=== PATIENT | male | born 1950 | race Caucasian/White ===

== ENCOUNTER 2019-01-11 21:18 | Observation (INO) ==
[2019-01-11 21:53] LABS: Basophils # 0.1 K/mm3 (0-0.2); Basophils % 1.5 % (0.1-2.0); Eosinophils # 0.4 K/mm3 (0.0-0.4); Eosinophils % 4.7 % (0.1-12.0); Hematocrit 39.6 % (42.0-52.0); Hemoglobin 11.6 g/dL (14.1-18.0); Lymphocytes # 2.5 K/mm3 (0.7-4.5); Lymphocytes % 32.6 % (10-50); Mean Corpuscular HGB Conc 29.4 g/dL (31.8-35.4); Mean Corpuscular Volume 75.4 fl (80-94); Mean Platelet Volume 6.8 fl (7.4-10.4); Monocytes # 0.4 K/mm3 (0.1-1.0); Monocytes % 4.8 % (1.7-9.3); Neutrophils # 4.3 K/mm3 (1.8-7.8); Neutrophils % 56.4 % (37.0-80.0); Platelet Count 408 K/mm3 (142-424); Red Blood Count 5.26 M/mm3 (4.60-6.20); Red Cell Distribution Width 16.2 % (11.5-17.5); White Blood Count 7.7 K/mm3 (4.8-10.8)
[2019-01-11 22:55] LABS: Alanine Aminotransferase 29 U/L (12-78); Albumin Level 3.4 gm/dL (3.4-5.0); Albumin/Globulin Ratio 0.8 (1.1-1.8); Alkaline Phosphatase 145 U/L (46-116); Anion Gap 23.9 mEq/L (5-15); Aspartate Amino Transferase 25 U/L (15-37); Bilirubin,Total 0.3 mg/dL (0.2-1.0); Blood Urea Nitrogen 12 mg/dL (7-18); Calcium 8.7 mg/dL (8.5-10.1); Carbon Dioxide 17 mmol/L (21.0-32.0); Chloride 103 mmol/L (98-107); Globulin 4.4 gm/dl (1.3-3.2); Glucose 129 mg/dL (74-106); Sodium 140 mmol/L (136-145); Total Protein,Serum 7.8 gm/dL (6.4-8.2)
--- NOTE | 2019-01-11 23:17 | Emergency Department Note ---
ED Disposition Clinical Impression: Metabolic acidosis, Obesity (BMI 30.0-34.9) Fall Qualifiers: Encounter type: initial encounter Qualified Code(s): W19.XXXA - Unspecified fall, initial encounter Hypothyroidism Qualifiers: Hypothyroidism type: acquired Qualified Code(s): E03.9 - Hypothyroidism, unspecified Facial laceration Qualifiers: Encounter type: initial encounter Qualified Code(s): S01.81XA - Laceration without foreign body of other part of head, initial encounter Syncope Qualifiers: Syncope type: unspecified Qualified Code(s): R55 - Syncope and collapse Anemia Qualifiers: Anemia type: unspecified type Qualified Code(s): D64.9 - Anemia, unspecified Disposition: Admitted as Observation Condition on Discharge: Fair - Critical Care Critical Care Time: No Attestation: On 01/11/19, the high probability of a clinically significant, sudden or life threatening deterioration of the following system(s) required my full and direct attention, intervention and personal management. The time I documented below is in addition to time spent performing reported procedures but includes the following listed in this critical care notation. Medical Decision Making - Medical Records Medical records reviewed: Yes: I reviewed the patient's medical records. - Arik Inquiry Pt receiving controlled substance: No Vital Signs: 01/11/19 21:19 Temperature 98 F Temperature Source Oral Pulse Rate [Right] 114 H Respiratory Rate 22 Blood Pressure [Right Arm] 129/90 Blood Pressure Mean [Right Arm] 103 02 Sat by Pulse Oximetry 95 - Lab Data Lab results reviewed: Yes: I reviewed the patient's lab results. Lab Results 01/11/19 21:30: Sodium 140, Potassium 3.9, Chloride 103, Carbon Dioxide 17 L, Anion Gap 23.9 H, BUN 12, Creatinine 1.80 H, Estimated Creat Clear 51, Estimated GFR 38 L, Est GFR ( Amer) 46 L, Glucose 129 H, Calcium 8.7, Total Bilirubin 0.3, AST 25, ALT 29, Alkaline Phosphatase 145 H, Troponin I < 0.02, Total Protein 7.8, Albumin 3.4, Globulin 4.4 H, Albumin/Globulin Ratio 0.8 L 01/11/19 21:30: WBC 7.7, RBC 5.26, Hgb 11.6 L, Hct 39.6 L, MCV 75.4 L, MCH 22.1 L, MCHC 29.4 L, RDW 16.2, Plt Count 408, MPV 6.8 L, Neut % (Auto) 56.4, Lymph % (Auto) 32.6, [place] % (Auto) 4.8, Eos % (Auto) 4.7, Baso % (Auto) 1.5, Neut # (Auto) 4.3, Lymph # (Auto) 2.5, [place] # (Auto) 0.4, Eos # (Auto) 0.4, Baso # (Auto) 0.1 01/11/19 21:30: Lactate 10.0 H Result diagrams: 01/11/19 21:30 01/11/19 21:30 Orders (Tests/Meds): ED MEDICATIONS Generic Name Dose Route Start Last Admin Trade Name Freq PRN Reason Stop Dose Admin Sodium Chloride 1,000 mls @ 999 mls/hr 01/11/19 23:00 01/11/19 22:54 Sod Chlor 0.9% 1000ml Bag IV 01/12/19 00:00 999 mls/hr .Q1H1M NATASHA Administration Sodium Chloride 2,650 mls @ 1,325 mls/hr 01/11/19 23:26 01/11/19 23:29 Sod Chlor 0.9% 1000ml Bag 30 ml/kg infuse over 2 hr (2650 ml) 01/12/19 01:25 1,325 mls/hr IV Administration .Q2H ONE Discontinued Medications Generic Name Dose Route Start Last Admin Trade Name Freq PRN Reason Stop Dose Admin Tetanus/Reduced Diphtheria/Acell Pertussis 0.5 ml 01/11/19 23:31 01/11/19 23:34 Adacel Tdap 0.5ml Syringe IM 01/11/19 23:32 0.5 ml .ONCE ONE Administration ORDERS Category Date Time Status CT cervical spine wo con Stat Cat Scan 01/11/19 21:[address] head/brain wo con Stat Cat Scan 01/11/19 21:26 Taken XR chest 2V Stat Exams 01/11/19 21:26 Taken XR pelvis 1-2V Stat Exams 01/11/19 21:26 Taken XR wrist LT min 3V Stat Exams 01/11/19 21:26 Taken XR wrist RT min 3V Routine Exams 01/11/19 Taken Blood Culture Stat Micro 01/11/19 21:30 Received - Radiology Data #1 Image(s): Chest, Wrist, Pelvis Image Reviewed: Yes I reviewed the patient's radiology image Preliminary Findings: No Fracture Seen - CT Data CT Scan: Head, C-Spine Time Received: 23:[address] Reviewed: Yes: I have viewed the radiologist's interpretation Preliminary Findings: No Fracture Seen - ECG Data Tracing #1 Arrhythmias present: sinus tach Ischemic changes: non-specific ST-T wave changes - AMINATA Score for Non-Stemi Age of Patient: 60-69 years old Heart Rate: 110-149 bpm Systolic Blood Pressure: 120-139 mmhg Serum Creatinine: 1.60-1.99 mg/dl CHF [place] Class: I-No CHF Other Risk Factors: None Non-Stemi Risk Score: 129 Fall HPI - General Chief Complaint: Fall Stated Complaint: Fall, dizzy Time Seen by Provider: 01/11/19 21:30 Mode of Arrival: EMS Source of Information: Patient, EMS, Medical Record Limitations: No Limitations Description of Symptoms (Recalled from ER Triage Doc. by RN): Pt states he went to walk up some steps and became dizzy and soa and fell. Pt has laceration to the left side of his head and c/o left wrist pain. - History of Present Illness HPI Narrative: pt had been walking and was climbing steps and had feeling of sob and fell with forehead lac and wrist injury- no sz no def chest pain - MD complaint: fall Onset (ago): hour(s) Fall from: walking Place [facility] occurred[facility] Loss of consciousness: none Prolonged down time: no Symptoms prior to fall: lightheadedness Location of injury: head Location of injury - extremities: Right: hand Severity: moderate Associated symptoms (after fall): denies - Related Data Home Medications Medication Instructions Recorded Confirmed Levothyroxine Sodium 50 mg PO DAILY 01/11/19 01/11/19 [Levothyroxine 50mcg (0.05mg) Tab] OLANZapine [Zyprexa] 20 mg PO DAILY 01/11/19 01/11/19 [place]-3S/Dha/Epa/Fish Oil [Fish 1 each PO DAILY 01/11/19 01/11/[address] 1,000 mg Softgel] Pantoprazole Sodium [Pantoprazole 40 mg PO DAILY 01/11/19 01/11/19 20mg Tab] Simvastatin 20 mg PO DAILY 01/11/19 01/11/19 buPROPion HCl [Wellbutrin Xl] 150 mg PO DAILY 01/11/19 01/11/19 Allergies Allergy/AdvReac Type Severity Reaction Status Date / Time haloperidol [HALOPERIDOL] Allergy Mild Verified 01/11/19 23:34 Penicillins [PENICILLINS] Allergy Mild Verified 01/11/19 23:34 [facility] History - Hepatitis A Screen Drug use history?: No High risk sexual behaviors?: No History of sexually transmitted infection?: No Currently employed?: No Childcare worker?: No Do you have indoor plumbing?: Yes Do you have electricity?: Yes Attestation statement:: This patient has been screened for Hepatitis A risk factors. I have reviewed the patient's past medical history: Yes Medical History: Denies:: Diabetes Mellitus Type 1, Diabetes Mellitus Type 2 - Social History Alcohol Intake: never Occupational Status: disabled ROS Obtained: Yes All systems reviewed & no additional complaints - Constitutional Constitutional: Denies fever(s) - Eyes Eyes: Denies change in vision - ENT Ears, Nose, Mouth, and Throat: Denies sore throat - Cardiovascular Cardiovascular: Denies chest pain, Reports dyspnea - Respiratory Respiratory: No cough - Gastrointestinal Gastrointestingal: Denies: abdominal pain - Genitourinary Male Genitourinary: Denies hematuria - Musculoskeletal Musculoskeletal: Reports as per HPI, Reports joint pain, Denies joint swelling, Reports limited range of motion, Reports neck pain - Integumentary/Breasts Skin/Breast: Denies rash - Neurologic Neurologic: Reports as per HPI, Denies abnormal speech, Reports dizziness, Erasmo es focal weakness, Denies seizure-like activity Physical Exam - General General appearance: alert, obese - Head Head exam: normocephalic - Eye Eye exam: Present: PERRL, EOMI. Absent: scleral icterus, nystagmus - ENT ENT exam: Present: mucous membranes dry - Neck Neck exam: Present: trachea midline - Respiratory Respiratory exam: Present: normal lung sounds bilaterally. Absent: respiratory distress - Cardiovascular Cardiovascular exam: Present: regular rate, systolic murmur, +S4 - Abdominal Exam Abdominal exam: Present: soft. Absent: tenderness - Expanded Upper Extremity Exam Left Forearm/Wrist exam: Present: tenderness. Absent: full ROM, tenderness over anatomical snuff box Right Forearm/Wrist exam: Present: tenderness. Absent: tenderness over anatomical snuff box - Back Exam Back exam: Absent: CVA tenderness (L) - Neurological Exam Neurological exam: Present: alert, oriented X3, CN II-XII intact, other (gcs=15). Absent: motor sensory deficit - Psychiatric Psychiatric exam: Present: normal affect - Skin Skin exam: Present: other (2 cm lt forehead lac ) Procedures - Laceration Laceration 1 Site: face Side (If applicable): left Size (cm): 2 Description: irregular Depth: involves subcutaneous layer Local Anesthetic: lidocaine 1% Amount of anesthesia used (mL): 3 Pre-repair: deep structures intact Skin layer closed with: nylon, Dermabond Size (cm): 4-0 Number of sutures: 5 Technique: simple, interrupted
[2019-01-11 23:55] LABS: Microscopic, Urine URINE MICROSCOPIC (MICROSCOPIC)
[2019-01-11 23:57] LABS: Appearance,Urine CLEAR (Clear); Bilirubin,Urine Negative (Negative); Blood, Urine TRACE-I (Negative); Color,Urine YELLOW (Yellow); Glucose,Urine (UA) Negative (Negative); Ketones,Urine Negative (Negative); Leukocyte Esterase,Urine Negative (Negative); Protein,Urine Negative (Negative); Urobilinogen,Urine 0.2 EU/dl (0.2)
[2019-01-12 00:02] LABS: WBC,Urine Occasional #/hpf (0-3)
[2019-01-12 00:03] LABS: Bacteria,Urine Trace /lpf; Squamous Epithelial Cell,Urine Occasional #/hpf (0-5)
[2019-01-12 07:23] LABS: Basophils # 0.1 K/mm3 (0-0.2); Basophils % 0.7 % (0.1-2.0); Eosinophils # 0.2 K/mm3 (0.0-0.4); Eosinophils % 2.5 % (0.1-12.0); Hematocrit 34.4 % (42.0-52.0); Lymphocytes # 1.5 K/mm3 (0.7-4.5); Lymphocytes % 18.5 % (10-50); Mean Corpuscular HGB Conc 30.1 g/dL (31.8-35.4); Mean Corpuscular Volume 73.2 fl (80-94); Mean Platelet Volume 6.8 fl (7.4-10.4); Monocytes # 0.7 K/mm3 (0.1-1.0); Monocytes % 8.2 % (1.7-9.3); Neutrophils # 5.7 K/mm3 (1.8-7.8); Neutrophils % 70.1 % (37.0-80.0); Platelet Count 290 K/mm3 (142-424); Red Cell Distribution Width 16.1 % (11.5-17.5); White Blood Count 8.2 K/mm3 (4.8-10.8)
--- NOTE | 2019-01-12 07:29 | Pharmacy Consult Notes ---
[facility] Pharmacy VTE Monitoring - Patient Demographics Admission date: 01/11/19 Report Date: 01/12/19 Time: 07:28 Allergies/Adverse Reactions: Patient Allergies haloperidol [HALOPERIDOL] Allergy (Mild, Verified 01/11/19 23:34) Penicillins [PENICILLINS] Allergy (Mild, Verified 01/11/19 23:34) Height: 1.68 m Weight: 89.84 kg Patient Problems: Current Active Problems Metabolic acidosis (Acute) Fall (Acute) Hypothyroidism (Acute) Facial laceration (Acute) Obesity (BMI 30.0-34.9) (Acute) Syncope (Acute) Anemia (Acute) - VTE Risk Labs: VTE Related Lab Results Hgb 11.6 g/dL (14.1-18.0) L 01/11/19 21:30 Hct 39.6 % (42.0-52.0) L 01/11/19 21:30 Plt Count 408 K/mm3 (142-424) 01/11/19 21:30 BUN 12 mg/dL (7-18) 01/11/19 21:30 Creatinine 1.80 mg/dL (0.70-1.30) H 01/11/19 21:30 Estimated Creat Clear 51 mL/min (50-200) 01/11/19 21:30 Was VTE Risk Assessment Performed: Yes VTE Score: 6 VTE Risk Level: Moderate Risk - Prophylaxis VTE Prophylaxis Ordered?: Yes Types of VTE Prophylaxis: TEDS Knee High Location of Applied Device: Bilateral Lower Extremeties - VTE Diagnosis Confirmed Treatment or plan recommended: Continue Current Treatment
[2019-01-12 07:47] LABS: Hemoglobin 10.5 g/dL (14.1-18.0)
[2019-01-12 07:50] LABS: Anion Gap 13.4 mEq/L (5-15); Calcium 8.2 mg/dL (8.5-10.1); Chol/HDL Ratio 6.2 (1-3.5)
--- NOTE | 2019-01-12 07:57 | Consult Report ---
History of Present Illness Consult date: 01/12/19 Requesting physician: Shayne Lora Chief complaint: syncope Additional Medical History:: 1. History of bipolar disorder 2. History of schizophrenia 3. GERD/esophagitis, 2017, with Julia infection by EGD 4. Hypothyroidism 5. Hyperlipidemia 6. Syncope with metabolic acidosis, 12/[address] of the head unremarkable B. X-ray of the left wrist showing distal radial fracture and triquetral avulsion. 7. Hypertension 8. CKD, stage 3 with Cr 1.8 down to 1.3 and GFR incresed from 38 to 54 during hospitalization 12/2018 History of present illness: 68-year-old white male admitted through the emergency department for episode of syncope. Patient is a resident of [facility] and had walked downhill to get some ice cream last evening. On his return trip back about 830, he noticed he was short of breath coming up hill and felt heavy. When he got to [facility] steps he got lightheaded dizzy and passed out hitting his head and injuring his wrists. Patient was brought to the ER for evaluation. He did receive stitches to laceration of the left eye. X-rays of head and neck and both wrists were obtained with evidence of distal radial fracture and triquetral avulsion noted. Patient was kept overnight for observation. Cardiac enzymes within normal limits. No arrhythmias noted on telemetry with EKGs last night and this a.m. showing sinus rhythm with nonspecific ST-T abnormalities. Patient did have a metabolic acidosis noted which has improved with IV fluids. Chest x-ray was unremarkable. Patient denies any previous cardiac history although he has been hospitalized both at [facility] in [facility] and within the last 5 years. Records are pending at this time. He does not recall being evaluated with stress test or cardiac catheterization. Patient is a non-smoker and nondrinker (discontinued all alcohol use 5 years ago). He is a prediabetic but is unsure if he is on medication. [facility] History Medical History: Reports:: Hyperlipidemia, Hypertension Denies:: Cancer, Diabetes Mellitus Type 1, Diabetes Mellitus Type 2, MRSA *Have you ever received a pneumonia vaccine?: Yes *Have you received a flu vaccine this season?: No Other Surgeries: Yes: Appendectomy, Colonoscopy, Other Amputation: No Fractures: No - *Social History Educational Level: Attended College Alcohol Intake: never *Occupational Status:: disabled *Travel in the last 8 weeks: None - Psychiatric History Expresses thoughts of harming self/others: None Suicide Plan Description: No Plan Family Hx:: Cancer, Hyperlipidemia Meds Home Medications Medication Instructions Recorded Confirmed Type Levothyroxine Sodium 50 mg PO DAILY 01/11/19 01/11/19 History [Levothyroxine 50mcg (0.05mg) Tab] OLANZapine [Zyprexa] 20 mg PO DAILY 01/11/19 01/11/19 History [place]-3S/Dha/Epa/Fish Oil [Fish 1 each PO DAILY 01/11/19 01/11/[address] 1,000 mg Softgel] Pantoprazole Sodium [Pantoprazole 40 mg PO DAILY 01/11/19 01/11/19 History 20mg Tab] Simvastatin 20 mg PO DAILY 01/11/19 01/11/19 History buPROPion HCl [Wellbutrin Xl] 150 mg PO DAILY 01/11/19 01/11/19 History Allergies Allergy/AdvReac Type Severity Reaction Status Date / Time haloperidol [HALOPERIDOL] Allergy Mild Verified 01/11/19 23:34 Penicillins [PENICILLINS] Allergy Mild Verified 01/11/19 23:34 Review of Systems - *Cardiovascular Reports shortness of breath with activity, Denies chest pain - *Respiratory Reports shortness of breath with activity, Denies cough - *Gastrointestinal Denies abdominal pain, Denies nausea, Denies vomiting - *Genitourinary Denies blood in urine - *Musculoskeletal Reports joint pain, Reports back pain - *Neurologic Reports dizziness, Denies abnormal speech, Denies localized weakness, Denies seizure-like activity Exam Vital signs and Labs for Last 24 Hours: Temp Pulse Resp BP Pulse Ox 98.2 F 70 18 160/87 H 97 01/12/19 04:00 01/12/19 04:00 01/12/19 04:00 01/12/19 04:00 01/12/19 04:00 Laboratory Results - last 24 hr 01/11/19 21:30: Sodium 140, Potassium 3.9, Chloride 103, Carbon Dioxide 17 L, Anion Gap 23.9 H, BUN 12, Creatinine 1.80 H, Estimated Creat Clear 51, Estimated GFR 38 L, Est GFR ( Amer) 46 L, Glucose 129 H, Calcium 8.7, Total Bilirubin 0.3, AST 25, ALT 29, Alkaline Phosphatase 145 H, Troponin I < 0.02, Total Protein 7.8, Albumin 3.4, Globulin 4.4 H, Albumin/Globulin Ratio 0.8 L 01/11/19 21:30: WBC 7.7, RBC 5.26, Hgb 11.6 L, Hct 39.6 L, MCV 75.4 L, MCH 22.1 L, MCHC 29.4 L, RDW 16.2, Plt Count 408, MPV 6.8 L, Neut % (Auto) 56.4, Lymph % (Auto) 32.6, [place] % (Auto) 4.8, Eos % (Auto) 4.7, Baso % (Auto) 1.5, Neut # (Auto) 4.3, Lymph # (Auto) 2.5, [place] # (Auto) 0.4, Eos # (Auto) 0.4, Baso # (Auto) 0.1 01/11/19 21:30: Lactate 10.0 H 01/11/19 23:35: Urine Color Yellow, Urine Appearance Clear, Urine pH 6.0, Ur Specific Exchange 1.010, Urine Protein Negative, Urine Glucose (UA) Negative, Urine Ketones Negative, Urine Blood Trace-i, Urine Nitrate Negative, Urine Bilirubin Negative, Urine Urobilinogen 0.2, Ur Leukocyte Esterase Negative, Urine RBC 3-5, Urine WBC Occasional, Ur Squamous Epith Cells Occasional, Urine Bacteria Trace 01/12/19 00:00: ESR 40 H 01/12/19 00:00: C-Reactive Protein 0.4 01/12/19 01:50: Lactate 0.8 01/12/19 03:30: Troponin I 0.04 01/12/19 06:45: WBC 8.2, RBC 4.70, Hgb 10.5 L, Hct 34.4 L, MCV 73.2 L, MCH 22.0 L, MCHC 30.1 L, RDW 16.1, Plt Count 290 D, MPV 6.8 L, Neut % (Auto) 70.1, Lymph % (Auto) 18.5, [place] % (Auto) 8.2, Eos % (Auto) 2.5, Baso % (Auto) 0.7, Neut # (Auto) 5.7, Lymph # (Auto) 1.5, [place] # (Auto) 0.7, Eos # (Auto) 0.2, Baso # (Auto) 0.1 I & O for Last 24 hours: Intake & Output 01/09/19 01/10/19 01/11/19 01/12/19 11:59 11:59 11:59 11:59 Intake Total 953 / 953 Output Total 2125 / 2125 Balance -1172 / -1172 Weight 198 lb 1 oz - *Routine HEENT Exam Head: Present: normocephalic Eye: Present: EOMI, PERRL ENT: Present: mucous membranes moist - *Routine Neck Exam Present: supple. Absent: JVD, carotid bruit - *Routine Respiratory Exam Present: CTA bilaterally. Absent: accessory muscle use, rales, rhonchi, wheezes - *Routine Cardiovascular Exam Present: RRR. Absent: murmur, gallop, rubs - *Routine Abdominal Exam Present: soft. Absent: tenderness, distended, guarding - *Routine Extremities Exam Absent: edema, calf tenderness - *Routine Neurological Exam Present: alert, oriented X3, moving all extremities Assessment and Plan (1) Syncope Current visit: Yes Status: Acute Qualifiers: Syncope type: unspecified Qualified Code(s): R55 - Syncope and collapse Category: Medical Code(s): R55 - Syncope and collapse (2) Metabolic acidosis Current visit: Yes Status: Acute Category: Medical Code(s): E87.2 - Acidosis (3) Hypertension Current visit: Yes Status: Acute Category: Medical Code(s): I10 - Essential (primary) hypertension (4) Anemia Current visit: Yes Status: Acute Qualifiers: Anemia type: unspecified type Qualified Code(s): D64.9 - Anemia, unspecified Category: Medical Code(s): D64.9 - Anemia, unspecified (5) Facial laceration Current visit: Yes Status: Acute Qualifiers: Encounter type: initial encounter Qualified Code(s): S01.81XA - Laceration without foreign body of other part of head, initial encounter Category: Medical Code(s): S01.81XA - Laceration without foreign body of other part of head, initial encounter (6) Hypothyroidism Current visit: Yes Status: Acute Qualifiers: Hypothyroidism type: acquired Qualified Code(s): E03.9 - Hypothyroidism, unspecified Category: Medical Code(s): E03.9 - Hypothyroidism, unspecified (7) Obesity (BMI 30.0-34.9) Current visit: Yes Status: Acute Category: Medical Code(s): E66.9 - Obesity, unspecified - Assessment and plan all Dx Assessment and Plan for all problems:: 1. Syncope with metabolic acidosis noted on lab values. No acute EKG changes and with echocardiogram (preliminary reading) showing normal left ventricular ejection fraction and no significant valvular heart disease. Heather score is 129 through the ER which places the patient in an intermediate risk. Would recommend proceeding with [employer] Myov[facility] today to evaluate for coronary artery disease. Continue to monitor on telemetry. 2. We will try to obtain records from [facility] and 3. Further recognition to follow pending above results.
--- NOTE | 2019-01-12 08:45 | Electrocardiograph Report ---
APPROVED REPORT Exam: Resting ECG HR:105 bpm ECG Measurements Heart Rate 105 AXES RI 154 P 24 QRSd 92 QRS 38 QT 340 T62 QTc 449 <Conclusion> Sinus tachycardia Nonspecific ST and T wave abnormality Abnormal ECG Electronically signed by : Jayme Fregoso, 01/12/2019 08:44:47
--- NOTE | 2019-01-12 09:57 | Cardiology Report ---
APPROVED REPORT EXAM: Comprehensive 2D, Doppler, and color-flow Echocardiogram Faculty Neuropsychologist: Jody Alvarenga RT(R) Ht: 5 ft 6 in Wt: 196lbs BSA: 1.98 BP: 130/80 mmHg Indications: Chest Pain, Shortness of Breath, Diabetes, Syncope, Hyperlipidemia Left Ventricle Left atrium is mildly enlarged, left ventricle is normal size, there is mild qualitative concentric left ventricular hypertrophy, visually estimated ejection fraction 55% with no regional wall motion abnormality. Diastolic parameters are within normal range. Right Ventricle Right atrium and right ventricle are mildly enlarged with normal contractility. Aortic Valve Aortic valve is minimally thickened and fibrosed, there is no aortic stenosis aortic insufficiency. Mitral Valve Mitral valve leaflets are minimally thickened, there is no mitral stenosis, there is mild mitral regurgitation. Tricuspid Valve Tricuspid valve is grossly normal, there is mild tricuspid regurgitation, calculated right ventricular systolic pressure is 44 mmHg consistent with moderate probably hypertension. Pulmonic Valve Pulmonic valve is minimally thickened and fibrosed. Great Vessels Aortic root is normal size. Pericardium No significant pericardial effusion noted. 2D Dimensions LVOT 2.30 cm (M/F) 1.5-2.5 M-Mode Dimensions RVDd 2.00 cm (0.9-2.6)LA Diam 3.50 cm (1.9-4.0) LVDd 4.90 cm (3.5-5.7)Ao Diam 3.00 cm (2.0-3.7) LVDs 3.30 cm (3.5-5.7)AV Cusp 2.20 cm (1.5-2.6) IVSd 0.70 cm (0.6-1.1)PWd 0.70 cm (0.6-1.1) EF (Teich) 61.00% FS 32.70% EDV (Teich) 113.00 mLESV (Teich) 44.10 mL LV Diastology E/A Ratio 1.1MED E' 7.41 (< 7 cm/sec) E'/MED E' Ratio9.90 (>14)LAT E' 9.55 (<10 cm/sec) E/LAT E' Ratio 7.70 (>14) Mitral Valve MV E Max Vrenon. 73.50 (40-130 cm/s)MV A Velocity 67.60 (40-130 cm/s) E/A Ratio 1.10 Tricuspid Valve TR P. [id number] cm/sRAP Estimate 15.00 mmHg RVSP 36.00 mmHg Conclusion 1. Mild biatrial enlargement, normal left ventricular size, mild concentric left ventricular hypertrophy, visually estimated ejection fraction 55% with no regional wall motion abnormality, diastolic parameters are within normal range. 2. Mildly enlarged right ventricle with normal contractility. 3. Mild mitral and tricuspid regurgitation, calculated right ventricular systolic pressure is 44 mmHg consistent with moderate probably hypertension, inferior vena cava was not well-visualized. 4. No significant pericardial effusion noted. Electronically signed by : Erick Collado, 01/12/2019 09:57:12
--- NOTE | 2019-01-12 13:37 | Electrocardiograph Report ---
APPROVED REPORT Exam: Resting ECG HR:66 bpm ECG Measurements Heart Rate 66 AXES [place] 148 P 83 QRSd 94 QRS 21 QT 402 T37 QTc 421 <Conclusion> Normal sinus rhythm Normal ECG Electronically signed by : Jayme Fregoso, 01/12/2019 13:36:57
--- NOTE | 2019-01-12 15:09 | H&P/Discharge Summary ---
General - General Admission date:: 01/12/19 Discharge date: 01/12/19 *Admission Date: 01/11/19 *Chief complaint: Syncope, Laceratin L Forehead *History of present illness: 68-year-old male patient sitting up most of the bed. Denies dizziness or syncope during the night, reports he is feeling better dressing to left forehead clean dry and intact. Will be going to stress test this morning, then determine discharge after procedure. 68-year-old white male admitted through the emergency department for episode of syncope. Patient is a resident of [facility] and had walked downhill to get some ice cream last evening. On his return trip back about 830, he noticed he was short of breath coming up hill and felt heavy. When he got to [facility] steps he got lightheaded dizzy and passed out hitting his head and injuring his wrists. Patient was brought to the ER for evaluation. He did receive stitches to laceration of the left eye. X-rays of head and neck and both wrists were obtained with evidence of distal radial fracture and triquetral avulsion noted. Patient was kept overnight for observation. Cardiac enzymes within normal limits. No arrhythmias noted on telemetry with EKGs last night and this a.m. showing sinus rhythm with nonspecific ST-T abnormalities. Patient did have a metabolic acidosis noted which has improved with IV fluids. Chest x-ray was unremarkable. Patient denies any previous cardiac history although he has been [place] both [place] [facility] [place] [facility] within the last 5 years. Records are pending at this time. He does not recall being evaluated with stress test or cardiac catheterization. Patient is a non-smoker and nondrinker (discontinued all alcohol use 5 years ago). He is a prediabetic but is unsure if he is on medication (Per Timo NOLAN). [facility] History Medical History: Reports:: Hyperlipidemia, Hypertension Denies:: Cancer, Diabetes Mellitus Type 1, Diabetes Mellitus Type 2, MRSA *Have you ever received a pneumonia vaccine?: Yes *Have you received a flu vaccine this season?: No Other Surgeries: Yes: Appendectomy, Colonoscopy, Other Amputation: No Fractures: No - *Social History Educational Level: Attended College Alcohol Intake: never *Occupational Status:: disabled *Travel in the last 8 weeks: None - Psychiatric History Expresses thoughts of harming self/others: None Suicide Plan Description: No Plan Family Hx:: Cancer, Hyperlipidemia Review of Systems - Review of Systems Review of systems:: pertinent systems reviewed and negative unless documented below - Constitutional Denies anorexia - Eyes Denies blind spots, Denies blurry vision - ENT Denies abnormal hearing, Denies sore throat - *Cardiovascular Reports shortness of breath, Reports lightheadedness, Denies chest pain, Denies rapid, pounding, or irregular heartbeat - *Respiratory Denies chest congestion - *Gastrointestinal Denies abdominal pain, Denies bright, red blood in stools - *Genitourinary Denies difficulty urinating - *Musculoskeletal Denies joint pain - Integumentary/Breasts Denies yellowing of the skin, Denies unusual bruising - *Neurologic Reports dizziness, Denies abnormal speech, Denies localized weakness, Denies seizure-like activity - Psychiatric Denies difficulty concentrating - Endocrine Denies cold intolerance, Denies rapid, pounding, or irregular heartbeat - Hematologic/Lymphatic Denies easy bleeding - Allergic/Immunologic Denies throat swelling Exam Vital signs and Labs for Last 24 Hours: Temp Pulse Resp BP Pulse Ox 98.1 F 70 18 155/93 H 97 01/12/19 12:00 01/12/19 12:00 01/12/19 12:00 01/12/19 12:00 01/12/19 12:00 Laboratory Results - last 24 hr 01/11/19 21:30: Sodium 140, Potassium 3.9, Chloride 103, Carbon Dioxide 17 L, Anion Gap 23.9 H, BUN 12, Creatinine 1.80 H, Estimated Creat Clear 51, Estimated GFR 38 L, Est GFR ( Amer) 46 L, Glucose 129 H, Calcium 8.7, Total Bilirubin 0.3, AST 25, ALT 29, Alkaline Phosphatase 145 H, Troponin I < 0.02, Total Protein 7.8, Albumin 3.4, Globulin 4.4 H, Albumin/Globulin Ratio 0.8 L 01/11/19 21:30: WBC 7.7, RBC 5.26, Hgb 11.6 L, Hct 39.6 L, MCV 75.4 L, MCH 22.1 L, MCHC 29.4 L, RDW 16.2, Plt Count 408, MPV 6.8 L, Neut % (Auto) 56.4, Lymph % (Auto) 32.6, [place] % (Auto) 4.8, Eos % (Auto) 4.7, Baso % (Auto) 1.5, Neut # (Auto) 4.3, Lymph # (Auto) 2.5, [place] # (Auto) 0.4, Eos # (Auto) 0.4, Baso # (Auto) 0.1 01/11/19 21:30: Lactate 10.0 H 01/11/19 23:35: Urine Color Yellow, Urine Appearance Clear, Urine pH 6.0, Ur Specific [place] 1.010, Urine Protein Negative, Urine Glucose (UA) Negative, Urine Ketones Negative, Urine Blood Trace-i, Urine Nitrate Negative, Urine Bilirubin Negative, Urine Urobilinogen 0.2, Ur Leukocyte Esterase Negative, Urine RBC 3-5, Urine WBC Occasional, Ur Squamous Epith Cells Occasional, Urine Bacteria Trace 01/12/19 00:00: ESR 40 H 01/12/19 00:00: C-Reactive Protein 0.4 01/12/19 01:50: Lactate 0.8 01/12/19 03:30: Troponin I 0.04 01/12/19 06:45: WBC 8.2, RBC 4.70, Hgb 10.5 L, Hct 34.4 L, MCV 73.2 L, MCH 22.0 L, MCHC 30.1 L, RDW 16.1, Plt Count 290 D, MPV 6.8 L, Neut % (Auto) 70.1, Lymph % (Auto) 18.5, [place] % (Auto) 8.2, Eos % (Auto) 2.5, Baso % (Auto) 0.7, Neut # (Auto) 5.7, Lymph # (Auto) 1.5, [place] # (Auto) 0.7, Eos # (Auto) 0.2, Baso # (Auto) 0.1 01/12/19 06:45: Sodium 145, Potassium 4.4, Chloride 111 H, Carbon Dioxide 25 D, Anion Gap 13.4, BUN 10, Creatinine 1.33 H D, Estimated Creat Clear 69, Estimated GFR 54 L, Est GFR ( Amer) 65 D, Glucose 99 D, Calcium 8.2 L, Magnesium 2.1, Troponin I 0.03, Triglycerides 163, Cholesterol 179, LDL Cholesterol 117, VLDL Cholesterol 33, HDL Cholesterol 29, Cholesterol/HDL Ratio 6.2 H I & O for Last 24 hours: Intake & Output 01/09/19 01/10/19 01/11/19 01/12/19 23:59 23:59 23:59 23:59 Intake Total 1433 / 1433 Output Total 2124 / 212 Balance -692 / -692 Weight 195 lb 198 lb 1 oz - Constitutional no acute distress, obese - *Routine HEENT Exam Head: Present: normocephalic, atraumatic Eye: Present: EOMI, PERRL. Absent: conjunctival icterus, scleral injection ENT: Present: mucous membranes dry - *Routine Neck Exam Present: supple, full ROM, trachea midline - *Routine Respiratory Exam Present: CTA bilaterally. Absent: accessory muscle use, respiratory distress - *Routine Cardiovascular Exam Present: RRR, murmur - *Routine Abdominal Exam Present: soft, normoactive bowel sounds. Absent: tenderness, firm - *Routine Extremities Exam Present: tenderness. Absent: cyanosis, full ROM - Routine Back/Spine/Pelvis Exam Back/Spine: Present: pain with rotation. Absent: CVA tenderness - *Routine Skin Exam Present: wounds. Absent: intact, jaundice Comments: 2 cm lac L forehead w/ sutures, drsg C/D/I - *Routine Neurological Exam Present: alert, oriented X3, CN II-XII intact. Absent: motor deficit - Routine Psychiatric Exam Present: normal affect. Absent: auditory hallucinations, visual hallucinations Hospital Course Hospital Course: 68-year-old white male patient admitted through the emergency department for episode of syncope. He reports that he walked several blocks for an ice cream return back to long-term, walked up several steps and became dizzy, SOA, and fell. He denies any chest pain prior to episode, and just stated he became dizzy and fell. In the ER his troponins were negative and his lactate was 10.0. This morning cardiac enzymes were within normal, EKG showed an ESR with nonspecific nonspecific ST T wave abnormalities. The patient did reports that he did have a cardiac history and has been house [place] at [facility] [place] [facility] and to within the last 5 years he does not recall being evaluated with a stress test or a cardiac catheterization he admits he is a non- smoker and no ET0H use for 5 years. This morning cardiology has seen and rec ommended a stress test, lactate this morning is 0.8 which seems to have corrected with fluids during the night. Patient is sitting up at the side of the bed with dressing over the left forehead, clean dry and intact. He will be discharged back to the long-term today and we will draw a BMP in 1 month, he is agreeable to this. 01/12/2019 2-D ECHO: Conclusion 1. Mild biatrial enlargement, normal left ventricular size, mild concentric left ventricular hypertrophy, visually estimated ejection fraction 55% with no regional wall motion abnormality, diastolic parameters are within normal range. 2. Mildly enlarged right ventricle with normal contractility. 3. Mild mitral and tricuspid regurgitation, calculated right ventricular systolic pressure is 44 mmHg consistent with moderate probably hypertension, inferior vena cava was not well-visualized. 4. No significant pericardial effusion noted. Electronically signed by : Erick Collado, 01/12/2019 09:57:12 01/12/2019 Stress-Test: Echo shows normal LV size and function with evidence of moderate pulmonary HTN. Al Myoview negative for ischemia. OK for discharge home from cardiology standpoint. Consider adding BP med with diuretic if BP consistently elevated as outpatient. Hold off on adding anything at this time. Follow up in 2-3 wks (Per Timo NOLAN). Results Labs on day of discharge: Labs from last 24 hours 01/12/19 01/12/19 01/12/19 06:45 06:45 03:30 WBC 8.2 RBC 4.70 Hgb 10.5 L Hct 34.4 L MCV 73.2 L MCH 22.0 L MCHC 30.1 L RDW 16.1 Plt Count 290 D MPV 6.8 L Neut % (Auto) 70.1 Lymph % (Auto) 18.5 [place] % (Auto) 8.2 Eos % (Auto) 2.5 Baso % (Auto) 0.7 Neut # (Auto) 5.7 Lymph # (Auto) 1.5 [place] # (Auto) 0.7 Eos # (Auto) 0.2 Baso # (Auto) 0.1 ESR Sodium 145 Potassium 4.4 Chloride 111 H Carbon Dioxide 25 D Anion Gap 13.4 BUN 10 Creatinine 1.33 H D Estimated Creat Clear 69 Estimated GFR 54 L Est GFR ( Amer) 65 D Glucose 99 D Lactate Calcium 8.2 L Magnesium 2.1 Total Bilirubin AST ALT Alkaline Phosphatase Troponin I 0.03 0.04 C-Reactive Protein Total Protein Albumin Globulin Albumin/Globulin Ratio Triglycerides 163 Cholesterol 179 LDL Cholesterol 117 VLDL Cholesterol 33 HDL Cholesterol 29 Cholesterol/HDL Ratio 6.2 H Urine Color Urine Appearance Urine pH Ur Specific [place] Urine Protein Urine Glucose (UA) Urine Ketones Urine Blood Urine Nitrate Urine Bilirubin Urine Urobilinogen Ur Leukocyte Esterase Urine RBC Urine WBC Ur Squamous Epith Cells Urine Bacteria 01/12/19 01/12/19 01/12/19 01:50 00:00 00:00 WBC RBC Hgb Hct MCV MCH MCHC RDW Plt Count MPV Neut % (Auto) Lymph % (Auto) [place] % (Auto) Eos % (Auto) Baso % (Auto) Neut # (Auto) Lymph # (Auto) [place] # (Auto) Eos # (Auto) Baso # (Auto) ESR 40 H Sodium Potassium Chloride Carbon Dioxide Anion Gap BUN Creatinine Estimated Creat Clear Estimated GFR Est GFR ( Amer) Glucose Lactate 0.8 Calcium Magnesium Total Bilirubin AST ALT Alkaline Phosphatase Troponin I C-Reactive Protein 0.4 Total Protein Albumin Globulin Albumin/Globulin Ratio Triglycerides Cholesterol LDL Cholesterol VLDL Cholesterol HDL Cholesterol Cholesterol/HDL Ratio Urine Color Urine Appearance Urine pH Ur Specific [place] Urine Protein Urine Glucose (UA) Urine Ketones Urine Blood Urine Nitrate Urine Bilirubin Urine Urobilinogen Ur Leukocyte Esterase Urine RBC Urine WBC Ur Squamous Epith Cells Urine Bacteria 01/11/19 01/11/19 01/11/19 23:35 21:30 21:30 WBC 7.7 RBC 5.26 Hgb 11.6 L Hct 39.6 L MCV 75.4 L MCH 22.1 L MCHC 29.4 L RDW 16.2 Plt Count 408 MPV 6.8 L Neut % (Auto) 56.4 Lymph % (Auto) 32.6 [place] % (Auto) 4.8 Eos % (Auto) 4.7 Baso % (Auto) 1.5 Neut # (Auto) 4.3 Lymph # (Auto) 2.5 [place] # (Auto) 0.4 Eos # (Auto) 0.4 Baso # (Auto) 0.1 ESR Sodium Potassium Chloride Carbon Dioxide Anion Gap BUN Creatinine Estimated Creat Clear Estimated GFR Est GFR ( Amer) Glucose Lactate 10.0 H Calcium Magnesium Total Bilirubin AST ALT Alkaline Phosphatase Troponin I C-Reactive Protein Total Protein Albumin Globulin Albumin/Globulin Ratio Triglycerides Cholesterol LDL Cholesterol VLDL Cholesterol HDL Cholesterol Cholesterol/HDL Ratio Urine Color Yellow Urine Appearance Clear Urine pH 6.0 Ur Specific [place] 1.010 Urine Protein Negative Urine Glucose (UA) Negative Urine Ketones Negative Urine Blood Trace-i Urine Nitrate Negative Urine Bilirubin Negative Urine Urobilinogen 0.2 Ur Leukocyte Esterase Negative Urine RBC 3-5 Urine WBC Occasional Ur Squamous Epith Cells Occasional Urine Bacteria Trace 01/11/19 21:30 WBC RBC Hgb Hct MCV MCH MCHC RDW Plt Count MPV Neut % (Auto) Lymph % (Auto) [place] % (Auto) Eos % (Auto) Baso % (Auto) Neut # (Auto) Lymph # (Auto) [place] # (Auto) Eos # (Auto) Baso # (Auto) ESR Sodium 140 Potassium 3.9 Chloride 103 Carbon Dioxide 17 L Anion Gap 23.9 H BUN 12 Creatinine 1.80 H Estimated Creat Clear 51 Estimated GFR 38 L Est GFR ( Amer) 46 L Glucose 129 H Lactate Calcium 8.7 Magnesium Total Bilirubin 0.3 AST 25 ALT 29 Alkaline Phosphatase 145 H Troponin I < 0.02 C-Reactive Protein Total Protein 7.8 Albumin 3.4 Globulin 4.4 H Albumin/Globulin Ratio 0.8 L Triglycerides Cholesterol LDL Cholesterol VLDL Cholesterol HDL Cholesterol Cholesterol/HDL Ratio Urine Color Urine Appearance Urine pH Ur Specific [place] Urine Protein Urine Glucose (UA) Urine Ketones Urine Blood Urine Nitrate Urine Bilirubin Urine Urobilinogen Ur Leukocyte Esterase Urine RBC Urine WBC Ur Squamous Epith Cells Urine Bacteria - Additional Comments Rounded with Dr. Lora, orders per Dr. Lora 1. Discharge back to [facility] today 2. Continue current medical regimen 3. BMP in 1 month DS: Diagnosis - Discharge Diagnosis (1) Syncope Status: Acute (2) Metabolic acidosis Status: Acute (3) Hypertension Status: Acute (4) Anemia Status: Acute (5) Facial laceration Status: Acute (6) Hypothyroidism Status: Acute (7) Obesity (BMI 30.0-34.9) Status: Acute Discharge Plan - Patient Discharge Instructions ACTIVITY: Continue current activity DIET: continue same diet Patient Instructions: DI for Syncope in Adults (Fainting), Echocardiogram, Anemia - Follow up Plan Follow up with: Shayne Lora MD [Primary Care Provider] - 2 weeks Issa Sullivan MD [Staff Physician] - 2 weeks Disposition: Home, Self-Retirement Medications: Home Medications Medication Instructions Recorded Confirmed Type Levothyroxine Sodium 50 mg PO DAILY 01/11/19 01/11/19 History [Levothyroxine 50mcg (0.05mg) Tab] OLANZapine [Zyprexa] 20 mg PO DAILY 01/11/19 01/11/19 History Zeigler-3S/Dha/Epa/Fish Oil [Fish 1 each PO DAILY 01/11/19 01/11/[address] 1,000 mg Softgel] Pantoprazole Sodium [Pantoprazole 40 mg PO DAILY 01/11/19 01/11/19 History 20mg Tab] Simvastatin 20 mg PO DAILY 01/11/19 01/11/19 History buPROPion HCl [Wellbutrin Xl] 150 mg PO DAILY 01/11/19 01/11/19 History Prescriptions/Medication Reconciliation: Continued Pantoprazole Sodium [Pantoprazole 20mg Tab] 40 mg PO DAILY Zeigler-3S/Dha/Epa/Fish Oil [Fish Oil Dr 1,000 mg Softgel] 1 each PO DAILY Levothyroxine Sodium [Levothyroxine 50mcg (0.05mg) Tab] 50 mg PO DAILY buPROPion HCl [Wellbutrin Xl] 150 mg PO DAILY Simvastatin 20 mg PO DAILY OLANZapine [Zyprexa] 20 mg PO DAILY - Problem Reconciliation Problems Reviewed?: Yes
--- NOTE | 2019-01-24 11:44 | Cardiology Report ---
APPROVED REPORT Technologist: dayana mckenna, Ht: 5 ft 6 in Wt: 196 lbs BSA: 1.98 m2 HR: 73 bpm BP: 168/92 mmHg Rhythm: sinus Indications: CP Medical History Medical History: HTN, Hyperlipidemia Medications: Levothyroxine,,,,, Pantoprazole,,,,, WELLBUTRIN,,,,, SimvastaIN,,,,, ZYprexa,,,,, Allergies: PCN Cardiac Risk Factors: HTN, Hyperlipidemia, FHX of CAD Stress Test Details Test: LEXISCAN HR Resting HR: 73 bpmMax Heart Rate (APMHR): 154 bpm Max HR Achieved: 103 bpmTarget HR (85% APMHR): 130 bpm % of APMHR: 66 Recovery HR: 80 bpm BP Resting BP: 168/92 mmHg Max BP: 182/89 mmHg ECG Clinical Exercise duration: 04:01 min Highest Stage Achieved: Stress ECG Conclusion No chest pain , no Shortness of breath, patient reports dizziness - resolved in recovery. No ectopy noted. Less than 1.5mm ST depression Images to follow. Electronically signed by : Issa Sullivan, 01/24/2019 11:44:08
== END 2019-01-12 16:25 | disposition home or self-care (01) ==
LOC: 2ND 21:18 → ER 21:18 → 2ND 01-12 01:01
PROVIDERS: ADMIT Emergency Medicine; ATTEND Emergency Medicine
CPT/HCPCS: 36415; 70450; 71020; 71046; 72125; 72170; 73110; 78452; 80048; 80053; 80061; 81001; 83605; 83735; 84484; 85025; 85651; 86140; 87040; 90471; 90715; 93005; 93017; 93306; 96365; 96366; 99285; A9502; G0168; G0378; J2785

== ENCOUNTER 2019-12-25 20:44 | Emergency (ER) | payer MEDICARE, OTHER, SELFPAY ==
--- NOTE | 2019-12-25 20:44 | ECG_ITS ---
APPROVED REPORT Exam: Resting ECG HR:88 bpm ECG Measurements Heart Rate 88 AXES MO 152 P 43 QRSd 94 QRS 44 QT 360 T 42 QTc 435 <Conclusion> Normal sinus rhythm Nonspecific ST abnormality Abnormal ECG Electronically signed by : Jayme Fregoso, 12/30/2019 21:22:18
[2019-12-25 20:50] VITALS: BP 146/91; PULSE 89; RESP 14; TEMP 37.6; O2SAT 99; BMI 31.6
--- NOTE | 2019-12-25 20:56 | HMH.EDGENADL ---
ED Disposition Clinical Impression: Atypical chest pain, Viral upper respiratory illness Disposition: Home, Self-Care Condition on Discharge: Good Instructions: DI for Viral Upper Respiratory Infection -- Adult, DI for Atypical Chest Pain Additional Instructions: Additional instructions for CHEST PAIN: See your physician as soon as possible for further evaluation. Return immediately if worsening chest pain, vomiting, shortness of breath, fever, coughing of blood. Additional instructions for UPPER RESPIRATORY INFECTION: See your physician if not improving in 3-4 days or if worsening. Rest and drink plenty of fluids. Return immediately if you have an uncontrollable fever greater than 104 degrees, difficulty breathing or shortness of breath, persistent vomiting, or inability to swallow. Referrals: PCP,No [Non-Staff] - - Critical Care Critical Care Time: No Attestation: On , the high probability of a clinically significant, sudden or life threatening deterioration of the following system(s) required my full and direct attention, intervention and personal management. The time I documented below is in addition to time spent performing reported procedures but includes the following listed in this critical care notation. Medical Decision Making - Medical Records Medical records reviewed: Yes: I reviewed the patient's medical records. MR Comment: Admitted 01/11 through 01/12/2019 for syncope. Had a stress test and an echocardiogram and a cardiology consult. - Arik Inquiry Pt receiving controlled substance: No Vital Signs: 12/25/19 20:50 12/25/19 21:48 12/25/19 22:28 Temperature 99.6 F Temperature Source Oral Pulse Rate Pulse Rate [Right] 89 81 85 Respiratory Rate 14 18 18 Blood Pressure Blood Pressure [Right Arm] 146/91 H 152/84 H 168/88 H Blood Pressure Mean [Right Arm] 109 106 114 Blood Pressure Source [Right Arm] Automatic Cuff Blood Pressure Position [Right Arm] Supine 02 Sat by Pulse Oximetry 99 95 96 Oxygen Delivery Method Room Air Room Air 12/25/19 23:10 12/25/19 23:40 Temperature 99.6 F Temperature Source Pulse Rate 94 H Pulse Rate [Right] 86 Respiratory Rate 18 14 Blood Pressure 164/88 H Blood Pressure [Right Arm] 168/90 H Blood Pressure Mean [Right Arm] 116 Blood Pressure Source [Right Arm] Blood Pressure Position [Right Arm] 02 Sat by Pulse Oximetry 94 L Oxygen Delivery Method Room Air Room Air - Lab Data Lab results reviewed: Yes: I reviewed the patient's lab results. Lab Results 12/25/19 20:54: WBC 10.4, RBC 4.61, Hgb 9.1 L, Hct 31.0 L, MCV 67.4 L, MCH 19.8 L, MCHC 29.4 L, RDW 16.1, Plt Count 294, MPV 8.8, Neut % (Auto) 80.5 H, Lymph % (Auto) 10.4, [place] % (Auto) 4.9, Eos % (Auto) 3.3, Baso % (Auto) 0.8, Neut # (Auto) 8.3 H, Lymph # (Auto) 1.1, [place] # (Auto) 0.5, Eos # (Auto) 0.3, Baso # (Auto) 0.1 12/25/19 20:54: Sodium 141, Potassium 4.0, Chloride 107, Carbon Dioxide 25, Anion Gap 13.0, BUN 9, Creatinine 1.40 H, Estimated Creat Clear 64, Estimated GFR 51 L, Est GFR ( Amer) 61, Glucose 129 H, Calcium 8.6, Troponin I < 0.01 12/25/19 21:30: Influenza Type A Ag Negative, Influenza Type B Ag Negative 12/25/19 21:30: Group A Strep Rapid Negative 12/25/19 22:55: Troponin I < 0.01 Result diagrams: 12/25/19 20:54 12/25/19 20:54 Orders (Tests/Meds): ED MEDICATIONS Discontinued Medications Generic Name Dose Route Start Last Admin Trade Name Freq PRN Reason Stop Dose Admin Aspirin 324 mg 12/25/19 21:00 12/25/19 21:03 Aspirin 81mg Chewable Tablet PO 12/25/19 21:01 324 mg ONCE ONE Administration ORDERS Category Date Time Status XR chest 2V Stat Exams 12/25/19 21:00 Taken SARS-CoV-2, NICK Stat Lab 12/25/19 21:30 Received Strep Screen Confirmation Stat Micro 12/25/19 21:30 Received - Radiology Data #1 Image(s): Chest Image Reviewed: Yes I reviewed the patient's radiology image Preliminary Findings: Normal/NAD
--- NOTE | 2019-12-25 21:00 | XR_ITS ---
PROCEDURE: XR CHEST 2V CLINICAL HISTORY: chest pain COMPARISON: XR CHEST 2V from 01/11/2019 FINDINGS: Unremarkable cardiovascular structures. The lungs are clear without infiltrates, suspicious nodules, or pleural effusions. No acute bony abnormalities. IMPRESSION: No acute findings. Dictated by: Gilberto Cortes MD 12/26/2019 06:56 Electronically signed by Gilberto Cortes MD in [place] 12/26/2019 06:56
[2019-12-25 21:06] LABS: Basophils # 0.1 K/mm3 (0-0.2); Basophils % 0.8 % (0.1-2.0); Eosinophils # 0.3 K/mm3 (0.0-0.4); Eosinophils % 3.3 % (0.1-12.0); Hemoglobin 9.1 g/dL (14.1-18.0); Lymphocytes # 1.1 K/mm3 (0.7-4.5); Lymphocytes % 10.4 % (10-50); Mean Corpuscular HGB Conc 29.4 g/dL (31.8-35.4); Mean Corpuscular Hemoglobin 19.8 pg (27.0-31.2); Mean Corpuscular Volume 67.4 fl (80-94); Mean Platelet Volume 8.8 fl (7.4-10.4); Monocytes # 0.5 K/mm3 (0.1-1.0); Monocytes % 4.9 % (1.7-9.3); Neutrophils # 8.3 K/mm3 (1.8-7.8); Neutrophils % 80.5 % (37.0-80.0); Platelet Count 294 K/mm3 (142-424); Red Blood Count 4.61 M/mm3 (4.60-6.20); Red Cell Distribution Width 16.1 % (11.5-17.5); White Blood Count 10.4 K/mm3 (4.8-10.8)
[2019-12-25 21:07] LABS: Chloride 107 mmol/L (98-107)
[2019-12-25 21:08] LABS: Sodium 141 mmol/L (136-145)
[2019-12-25 21:10] LABS: Blood Urea Nitrogen 9 mg/dl (9-20); Creatinine Clearance Estimated 64 mL/min (50-200); Estimated Glomerular Filt Rate 51 ml/min (>60); GFR (African American) 61 ML/MIN (>60)
[2019-12-25 21:11] LABS: Calcium 8.6 mg/dl (8.4-10.2); Carbon Dioxide 25 mmol/L (22.0-30.0); Glucose 129 mg/dl (74-100)
[2019-12-25 21:30] LABS: Troponin I < 0.01 ng/ml (0.00-0.034)
[2019-12-25 21:48] VITALS: BP 152/84; PULSE 81; RESP 18; O2SAT 95
[2019-12-25 21:54] LABS: Strep Scrn Group A (Rapid) Negative (Negative)
[2019-12-25 22:28] VITALS: BP 168/88; PULSE 85; RESP 18; O2SAT 96
--- NOTE | 2019-12-25 23:05 | PC.NURSE ---
lab unable to see series troponin orders to run second troponin. single order put in per lab request.
[2019-12-25 23:10] VITALS: BP 168/90; PULSE 86; RESP 18; O2SAT 94
[2019-12-25 23:30] LABS: Troponin I < 0.01 ng/ml (0.00-0.034)
--- NOTE | 2019-12-25 23:39 | PC.NURSE ---
Cme Villar notified of pt discharge
[2019-12-25 23:40] VITALS: BP 164/88; PULSE 94; RESP 14; TEMP 37.6; O2SAT 97
[2019-12-27 13:22] LABS: Covid-19 Nasal PCR Sendout Lex NOT DETECTED
== END 2019-12-26 00:27 | disposition home or self-care (01) ==
PROVIDERS: Emergency Provider Emergency Medicine; PCP Emergency Medicine
DX: R07.89 Other chest pain (principal); J06.9 Acute upper respiratory infection, unspecified; E78.5 Hyperlipidemia, unspecified; I10 Essential (primary) hypertension; Z90.49 Acquired absence of other specified parts of digestive tract; Z79.899 Other long term (current) drug therapy; Z88.0 Allergy status to penicillin; Z88.8 Allergy status to other drugs, medicaments and biological substances
CPT/HCPCS: 71046; 80048; 84484; 85025; 87275; 87276; 87430; 93005; 99284; U0004

== ENCOUNTER → 2020-01-14 09:32 | Outpatient (CLI) | payer MEDICARE, OTHER, SELFPAY ==
[2020-01-14 10:02] LABS: Basophils # 0.1 K/mm3 (0-0.2); Basophils % 1.3 % (0.1-2.0); Eosinophils # 0.3 K/mm3 (0.0-0.4); Hematocrit 32.8 % (42.0-52.0); Hemoglobin 9.4 g/dL (14.1-18.0); Lymphocytes # 1.6 K/mm3 (0.7-4.5); Lymphocytes % 26.1 % (10-50); Mean Corpuscular HGB Conc 28.5 g/dL (31.8-35.4); Mean Corpuscular Hemoglobin 19.4 pg (27.0-31.2); Mean Platelet Volume 8.4 fl (7.4-10.4); Monocytes # 0.4 K/mm3 (0.1-1.0); Monocytes % 6.6 % (1.7-9.3); Neutrophils # 3.8 K/mm3 (1.8-7.8); Platelet Count 387 K/mm3 (142-424); Red Blood Count 4.83 M/mm3 (4.60-6.20); Red Cell Distribution Width 16.5 % (11.5-17.5); White Blood Count 6.3 K/mm3 (4.8-10.8)
[2020-01-14 10:36] LABS: Chloride 107 mmol/L (98-107); Potassium 4.3 mmoL/L (3.5-5.1); Sodium 142 mmol/L (136-145)
[2020-01-14 10:39] LABS: Alanine Aminotransferase 11 U/L (12-78); Albumin/Globulin Ratio 1.3 (1.1-1.8); Alkaline Phosphatase 165 U/L (38-126); Anion Gap 12.3 mEq/L (5-15); Aspartate Amino Transferase 23 U/L (17-59); Bilirubin,Total 0.5 mg/dl (0.2-1.3); Blood Urea Nitrogen 9 mg/dl (9-20); Calcium 9.4 mg/dl (8.4-10.2); Carbon Dioxide 27 mmol/L (22.0-30.0); Estimated Glomerular Filt Rate 55 ml/min (>60); GFR (African American) 67 ML/MIN (>60); Globulin 3.2 g/dL (1.3-3.2); Glucose 101 mg/dl (74-100); Iron 22 ug/dL (49-181); Total Protein,Serum 7.2 g/dl (6.3-8.2)
[2020-01-14 10:49] LABS: Total Iron Binding Capacity 497 ug/dL (261-462)
[2020-01-14 11:15] LABS: Ferritin 5.49 ng/ml (17.9-464)
[2020-01-15 14:10] LABS: Haptoglobin 220 mg/dL (32-363)
== END ==
PROVIDERS: Visit Provider Internal Medicine Medical Oncology
DX: D64.9 Anemia, unspecified (principal)
CPT/HCPCS: 36415; 80053; 82728; 83010; 83540; 83550; 85025

== ENCOUNTER → 2020-02-06 09:01 | Outpatient (CLI) | payer MEDICARE, OTHER, SELFPAY ==
[2020-02-06 10:36] LABS: Coronavirus 19 IgG Antibody Negative (Negative); Coronavirus 19 IgM Antibody Negative (Negative)
== END ==
PROVIDERS: Visit Provider Surgery
DX: Z01.818 Encounter for other preprocedural examination (principal); Z12.11 Encounter for screening for malignant neoplasm of colon
CPT/HCPCS: 36415; 86328

== ENCOUNTER 2020-02-07 07:24 | Day surgery (SDC) | payer MEDICARE, OTHER, SELFPAY ==
[2020-02-07] VITALS (8 sets, daily range): BP systolic 74–154; BP diastolic 39–80; PULSE 62–85; RESP 16–18; TEMP 36.5–36.6; O2SAT 93–99; BMI 30.2
--- NOTE | 2020-02-07 09:27 | HMH.SCOPE ---
- Procedure: Date: 02/07/20 Patient Date of :: 1950 Procedure Performed:: Esophagogastroduodenoscopy with biopsy Colonoscopy with polypectomy Indications:: Reflux Hiatal hernia Screening colonoscopy Performing Provider:: Roly Santos MD Referring Provider:: . Sedation:: Monitored anesthesia care Procedure:: After informed consent was obtained the patient was taken to the endoscopy suite. Sedation ensued after the patient was transferred to the left lateral decubitus position. Pulse, blood pressure, and oxygen saturation were monitored throughout the procedure. The endoscope was advanced beyond the duodenal bulb. Retroflexion within the gastric lumen was accomplished. The gastroscope was carefully removed. Digital rectal exam revealed no significant abnormality. The colonoscope was placed in position. The entire colon was evaluated. The colonoscope was carefully removed and the patient was transferred to recovery in stable condition. Please see findings and specimens below for detail. 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 Gastroesophageal junction at 40 cm Streaking gastritis versus gastritis with concomitant GAVE Sliding hiatal hernia with small paraesophageal component Bowel preparation moderate Hemorrhoidal tag/cushions Sigmoid diverticulosis Complex/large polyps (see specimens) Specimens:: Antral biopsy Multiple biopsies of distal esophagus (around 35 cm) Large complex lobulated adjacent polyps around 35 cm (x4)-snared Recommendations:: Diflucan Proton pump inhibition Follow-up pathology Likely repeat esophagogastroscopy in 1-2 years Likely repeat colonoscopy in 1-2 years secondary to size/nature/number of polyps and moderate bowel preparation Complications:: No immediate Estimated blood obtained (mL): 1
== END 2020-02-07 11:30 | disposition home or self-care (01) ==
LOC: OUTP 07:24
PROVIDERS: PCP Emergency Medicine; Visit Provider Surgery
PROC: 0DJ08ZZ Inspection of Upper Intestinal Tract, Via Natural or Artificial Opening Endoscopic (ICD-10-PCS; CPT 43235; principal; 2020-02-07 10:30)
DX: Z12.11 Encounter for screening for malignant neoplasm of colon (principal); K22.8 Other specified diseases of esophagus; K44.9 Diaphragmatic hernia without obstruction or gangrene; K29.70 Gastritis, unspecified, without bleeding; K64.0 First degree hemorrhoids; K63.5 Polyp of colon; K57.30 Diverticulosis of large intestine without perforation or abscess without bleeding; Z79.899 Other long term (current) drug therapy; E78.5 Hyperlipidemia, unspecified; I10 Essential (primary) hypertension; D64.9 Anemia, unspecified; Z88.0 Allergy status to penicillin; Z88.8 Allergy status to other drugs, medicaments and biological substances
CPT/HCPCS: 43239; 45385; 88305

== ENCOUNTER → 2020-05-08 14:22 | Outpatient (CLI) | payer MEDICARE, OTHER, SELFPAY ==
[2020-05-08 14:56] LABS: Basophils # 0.1 K/mm3 (0-0.2); Basophils % 1.2 % (0.1-2.0); Eosinophils # 0.3 K/mm3 (0.0-0.4); Eosinophils % 3.9 % (0.1-12.0); Hemoglobin 14.7 g/dL (14.1-18.0); Lymphocytes # 1.3 K/mm3 (0.7-4.5); Lymphocytes % 19.4 % (10-50); Mean Corpuscular HGB Conc 30.7 g/dL (31.8-35.4); Mean Corpuscular Volume 81.6 fl (80-94); Mean Platelet Volume 7.5 fl (7.4-10.4); Monocytes # 0.6 K/mm3 (0.1-1.0); Neutrophils # 4.4 K/mm3 (1.8-7.8); Neutrophils % 66.5 % (37.0-80.0); Platelet Count 251 K/mm3 (142-424); Red Blood Count 5.88 M/mm3 (4.60-6.20); Red Cell Distribution Width 24.9 % (11.5-17.5); White Blood Count 6.6 K/mm3 (4.8-10.8)
[2020-05-08 15:35] LABS: Iron 104 ug/dL (49-181)
[2020-05-08 15:54] LABS: Total Iron Binding Capacity 386 ug/dL (261-462)
[2020-05-08 16:22] LABS: Ferritin 37.6 ng/ml (17.9-464)
== END ==
PROVIDERS: Visit Provider Internal Medicine Medical Oncology
DX: D50.9 Iron deficiency anemia, unspecified (principal)
CPT/HCPCS: 36415; 82728; 83540; 83550; 85025

== ENCOUNTER → 2020-11-14 11:25 | Outpatient (CLI) | payer MEDICARE, OTHER, SELFPAY ==
[2020-11-14 12:12] LABS: Basophils # 0.1 K/mm3 (0-0.2); Basophils % 1.4 % (0.1-2.0); Eosinophils # 0.3 K/mm3 (0.0-0.4); Eosinophils % 4.1 % (0.1-12.0); Hemoglobin 16.3 g/dL (14.1-18.0); Lymphocytes # 1.4 K/mm3 (0.7-4.5); Lymphocytes % 21.6 % (10-50); Mean Corpuscular HGB Conc 34.7 g/dL (31.8-35.4); Mean Corpuscular Hemoglobin 30.9 pg (27.0-31.2); Mean Corpuscular Volume 89.1 fl (80-94); Mean Platelet Volume 7.9 fl (7.4-10.4); Monocytes # 0.5 K/mm3 (0.1-1.0); Monocytes % 7.2 % (1.7-9.3); Neutrophils # 4.3 K/mm3 (1.8-7.8); Neutrophils % 65.7 % (37.0-80.0); Platelet Count 234 K/mm3 (142-424); Red Blood Count 5.28 M/mm3 (4.60-6.20); Red Cell Distribution Width 13.7 % (11.5-17.5); White Blood Count 6.6 K/mm3 (4.8-10.8)
[2020-11-14 12:54] LABS: Chloride 104 mmol/L (98-107)
[2020-11-14 12:55] LABS: Potassium 4.9 mmoL/L (3.5-5.1); Sodium 142 mmol/L (136-145)
[2020-11-14 12:57] LABS: Alanine Aminotransferase 99 U/L (12-78); Alkaline Phosphatase 125 U/L (38-126); Anion Gap 15.9 mEq/L (5-15); Aspartate Amino Transferase 73 U/L (17-59); Bilirubin,Total 0.9 mg/dl (0.2-1.3); Blood Urea Nitrogen 15 mg/dl (9-20); Carbon Dioxide 27 mmol/L (22.0-30.0); Estimated Glomerular Filt Rate 55 ml/min (>60); GFR (African American) 66 ML/MIN (>60); Iron 129 ug/dL (49-181)
[2020-11-14 12:58] LABS: Albumin Level 4.8 g/dl (3.5-5.0); Albumin/Globulin Ratio 1.5 (1.1-1.8); Calcium 9.6 mg/dl (8.4-10.2); Globulin 3.3 g/dL (1.3-3.2); Glucose 135 mg/dl (74-100); Total Protein,Serum 8.1 g/dl (6.3-8.2)
[2020-11-14 13:07] LABS: Total Iron Binding Capacity 314 ug/dL (261-462)
[2020-11-14 13:33] LABS: Ferritin 281 ng/ml (17.9-464)
== END ==
PROVIDERS: Visit Provider Internal Medicine Medical Oncology
DX: D50.9 Iron deficiency anemia, unspecified (principal)
CPT/HCPCS: 36415; 80053; 82728; 83540; 83550; 85025

== ENCOUNTER 2021-01-27 13:22 | Observation (INO) | payer MEDICARE, OTHER, SELFPAY ==
[2021-01-27] VITALS (11 sets, daily range): BP systolic 134–172; BP diastolic 70–84; PULSE 68–106; RESP 16–20; TEMP 36.8–38.1; O2SAT 93–98; BMI 33.9
[2021-01-27 13:37] LABS: Influenza A, PCR Not Detected (NotDetected); Influenza B, PCR Not Detected (NotDetected)
--- NOTE | 2021-01-27 13:40 | XR_ITS ---
PROCEDURE: XR PELVIS 1-2V CLINICAL INDICATION: fall Pain COMPARISON: CR XR PELVIS 1-2V from 01/11/2019 TECHNIQUE: XR Pelvis AP View FINDINGS: No fracture or dislocation is evident. There are mild osteoarthritic changes of the hips. No lytic or blastic change. IMPRESSION: No acute findings. Dictated by: Gilberto Cortes MD 01/27/2021 14:22 Gilberto Cortes MD in [place] 01/27/2021 14:22
--- NOTE | 2021-01-27 13:40 | XR_ITS ---
PROCEDURE: XR LUMBAR SPINE 2-3V CLINICAL INDICATION: fall Posttraumatic pain COMPARISON: No exams were available for comparison FINDINGS: Normal alignment. No fracture or dislocation. No lytic or blastic change. Small anterior osteophytes are present in the lower thoracic spine and within the lumbar spine. Facet hypertrophic changes are present at L4-L5 and S1. IMPRESSION: Mild degenerative changes, no acute finding Dictated by: Gilberto Cortes MD 01/27/2021 14:21 Gilberto Cortes MD in [facility] 01/27/2021 14:21
--- NOTE | 2021-01-27 13:40 | HMH.EDGENADL ---
ED Disposition Clinical Impression: COVID-19 virus infection, Hypoxia, Syncope and collapse Disposition: Admitted as Observation Condition on Discharge: [facility] - Critical Care Critical Care Time: No Attestation: On 01/27/21, the high probability of a clinically significant, sudden or life threatening deterioration of the following system(s) required my full and direct attention, intervention and personal management. The time I documented below is in addition to time spent performing reported procedures but includes the following listed in this critical care notation. Medical Decision Making - Arik Inquiry Pt receiving controlled substance: No Vital Signs: 01/27/21 13:23 01/27/21 13:49 01/27/21 14:44 Temperature 100.5 F H Temperature Source Oral Pulse Rate 98 H Pulse Rate [Left] 101 H Pulse Rate [Orthostatic Lying Left] 97 H Pulse Rate [Orthostatic Sitting Left] Pulse Rate [Orthostatic Standing Left] Respiratory Rate 20 Blood Pressure 148/84 H Blood Pressure [Orthostatic Lying Right Arm] 137/83 Blood Pressure [Orthostatic Sitting Right Arm] Blood Pressure [Orthostatic Standing Right Arm] Blood Pressure [Right Arm] 141/81 H Blood Pressure Mean 96 Blood Pressure Mean [Right Arm] 101 02 Sat by Pulse Oximetry 94 L 93 L Oxygen Delivery Method Oxygen Flow Rate (LPM) 01/27/21 15:00 01/27/21 15:31 01/27/21 15:47 Temperature Temperature Source Pulse Rate 90 94 H 104 H Pulse Rate [Left] Pulse Rate [Orthostatic Lying Left] Pulse Rate [Orthostatic Sitting Left] Pulse Rate [Orthostatic Standing Left] Respiratory Rate Blood Pressure 134/83 137/83 136/82 Blood Pressure [Orthostatic Lying Right Arm] Blood Pressure [Orthostatic Sitting Right Arm] Blood Pressure [Orthostatic Standing Right Arm] Blood Pressure [Right Arm] Blood Pressure Mean Blood Pressure Mean [Right Arm] 02 Sat by Pulse Oximetry 95 94 L 96 Oxygen Delivery Method Nasal Cannula Oxygen Flow Rate (LPM) 3 01/27/21 15:49 01/27/21 16:30 Temperature Temperature Source Pulse Rate 91 H Pulse Rate [Left] Pulse Rate [Orthostatic Lying Left] 97 H Pulse Rate [Orthostatic Sitting Left] 106 H Pulse Rate [Orthostatic Standing Left] 101 H Respiratory Rate Blood Pressure 144/82 H Blood Pressure [Orthostatic Lying Right Arm] 137/83 Blood Pressure [Orthostatic Sitting Right Arm] 136/82 Blood Pressure [Orthostatic Standing Right Arm] 139/77 Blood Pressure [Right Arm] Blood Pressure Mean Blood Pressure Mean [Right Arm] 02 Sat by Pulse Oximetry 98 Oxygen Delivery Method Oxygen Flow Rate (LPM) - Lab Data Lab Results 01/27/21 13:20: SARS-CoV-2 (PCR) Detected A, Influenza A Untype (PCR) Not detected, Influenza Type B (PCR) Not detected 01/27/21 13:20: WBC 7.1, RBC 5.33, Hgb 16.4, Hct 48.4, MCV 90.9, MCH 30.7, MCHC 33.8, RDW 13.5, Plt Count 211, MPV 8.1, Neut % (Auto) 81.3 H, Lymph % (Auto) 7.2 L, Murray % (Auto) 7.8, Eos % (Auto) 2.1, Baso % (Auto) 1.6, Neut # (Auto) 5.8, Lymph # (Auto) 0.5 L, Murray # (Auto) 0.6, Eos # (Auto) 0.2, Baso # (Auto) 0.1 01/27/21 13:20: Sodium 139, Potassium 4.1, Chloride 103, Carbon Dioxide 24, Anion Gap 16.1 H, BUN 13, Creatinine 1.40 H, Estimated Creat Clear 68, Estimated GFR 50 L, Est GFR ( Amer) 61, Glucose 123 H, Calcium 9.1, Total Bilirubin 0.4, AST 104 H, ALT 111 H, Alkaline Phosphatase 130 H, Total Protein 7.4, Albumin 4.2, Globulin 3.2, Albumin/Globulin Ratio 1.3 01/27/21 14:45: Lactate 0.9 Result diagrams: 01/27/21 13:20 01/27/21 13:20 Orders (Tests/Meds): ED MEDICATIONS Discontinued Medications Generic Name Dose Route Start Last Admin Trade Name Freq PRN Reason Stop Dose Admin Iopamidol 75 ml 01/27/21 16:10 01/27/21 16:11 Iopamidol-370 (76%);100ml Bottle IV 01/27/21 16:11 75 ml ONCE ONE Administration Sodium Chloride 10 ml 01/27/21 16:10 01/27/21 16:11 Sodium Chloride 0.9% 10ml
--- NOTE | 2021-01-27 13:42 | XR_ITS ---
PROCEDURE: XR CHEST 2V CLINICAL HISTORY: fever cough COMPARISON: CR XR CHEST 2V from 01/11/2019 CR XR CHEST 2V from 12/25/2019 FINDINGS: The cardiomediastinal silhouette and pulmonary vascularity are within normal limits. There is minimal blunting of the left CP angle suggesting small effusion versus pleural thickening. The remaining lungs are clear. Degenerative changes thoracic spine IMPRESSION: Small effusion versus pleural thickening left CP angle otherwise negative Dictated by: Gilberto Cortes MD 01/27/2021 14:20 Gilberto Cortes MD in [facility] 01/27/2021 14:20
--- NOTE | 2021-01-27 14:00 | PC.NURSE ---
pt gone to CT
[2021-01-27 14:02] LABS: Chloride 103 mmol/L (98-107); Sodium 139 mmol/L (136-145)
[2021-01-27 14:03] LABS: Potassium 4.1 mmoL/L (3.5-5.1)
[2021-01-27 14:05] LABS: Alanine Aminotransferase 111 U/L (12-78); Albumin Level 4.2 g/dl (3.5-5.0); Albumin/Globulin Ratio 1.3 (1.1-1.8); Alkaline Phosphatase 130 U/L (38-126); Anion Gap 16.1 mEq/L (5-15); Aspartate Amino Transferase 104 U/L (17-59); Bilirubin,Total 0.4 mg/dl (0.2-1.3); Blood Urea Nitrogen 13 mg/dl (9-20); Calcium 9.1 mg/dl (8.4-10.2); Carbon Dioxide 24 mmol/L (22.0-30.0); Creatinine Clearance Estimated 68 mL/min (50-200); Estimated Glomerular Filt Rate 50 ml/min (>60); GFR (African American) 61 ML/MIN (>60); Globulin 3.2 g/dL (1.3-3.2); Glucose 123 mg/dl (74-100); Total Protein,Serum 7.4 g/dl (6.3-8.2)
[2021-01-27 14:18] LABS: Basophils # 0.1 K/mm3 (0-0.2); Basophils % 1.6 % (0.1-2.0); Eosinophils # 0.2 K/mm3 (0.0-0.4); Eosinophils % 2.1 % (0.1-12.0); Hematocrit 48.4 % (42.0-52.0); Hemoglobin 16.4 g/dL (14.1-18.0); Lymphocytes # 0.5 K/mm3 (0.7-4.5); Lymphocytes % 7.2 % (10-50); Mean Corpuscular HGB Conc 33.8 g/dL (31.8-35.4); Mean Corpuscular Hemoglobin 30.7 pg (27.0-31.2); Mean Corpuscular Volume 90.9 fl (80-94); Mean Platelet Volume 8.1 fl (7.4-10.4); Monocytes # 0.6 K/mm3 (0.1-1.0); Monocytes % 7.8 % (1.7-9.3); Neutrophils # 5.8 K/mm3 (1.8-7.8); Neutrophils % 81.3 % (37.0-80.0); Platelet Count 211 K/mm3 (142-424); Red Blood Count 5.33 M/mm3 (4.60-6.20); Red Cell Distribution Width 13.5 % (11.5-17.5); White Blood Count 7.1 K/mm3 (4.8-10.8)
[2021-01-27 14:24] LABS: Coronavirus 19, PCR Detected (NotDetected)
--- NOTE | 2021-01-27 14:36 | CT_ITS ---
PROCEDURE: CT ANGIO CHEST PE PROTOCOL CLINCIAL INDICATION: syncope, low O2 sat, covid, r/o PE COMPARISON: CT ABDPELW/O CT ABD PELVIS W/O CONTRAST from 09/16/2016 TECHNIQUE: IV Contrast: 70ML Isovue 370 Axial images obtained with sagittal and coronal reformats. All CT scans at the facility use one or more dose reduction, viz: automated exposure control, ma/kV adjustment per patient size (including targeted exams where dose is matched to indication, i.e. head), or iterative reconstruction technique. FINDINGS: HEART AND MEDIASTINAL STRUCTURES: No mediastinal or hilar mass or adenopathy. No evidence of pulmonary embolus, aortic aneurysm, or aortic dissection. Mild thickening of the distal esophagus with moderate-sized hiatal hernia and a small amount air noted in the esophagus. LUNGS AND PLEURAL SPACES: No lobar consolidation or collapse. Minimal atelectatic changes are present in the lung bases. Left-sided pericardial fat pad is present with fat in the major fissure. BONY STRUCTURES: No acute finding UPPER ABDOMEN: Cholelithiasis. Bilateral renal cysts. The most inferior image shows fatty area in the pancreatic head anteriorly nonspecific measuring 1 cm. ADDITIONAL FINDINGS: No other significant abnormalities. IMPRESSION: 1. No evidence of pulmonary embolus, aortic aneurysm, or aortic dissection. 2. Medium-sized hiatal hernia and cholelithiasis and with other nonacute findings as described above. Dictated by: Gilberto Cortes MD 01/27/2021 16:54 Gilberto Cortes MD in [facility] 01/27/2021 16:54
[2021-01-27 15:10] LABS: Lactic Acid 0.9 mmol/L (0.7-2.1)
--- NOTE | 2021-01-27 15:15 | PC.NURSE ---
darshan nurse called and updated on patient status.
--- NOTE | 2021-01-27 15:18 | ECG_ITS ---
APPROVED REPORT Exam: Resting ECG HR:90 bpm ECG Measurements Heart Rate 90 AXES UT 154 P 40 QRSd 92 QRS 83 QT 334 T 54 QTc 408 Conclusion Normal sinus rhythm Nonspecific ST abnormality Abnormal ECG Electronically signed by : Jayme Fregoso MD 01/28/2021 17:44:02
--- NOTE | 2021-01-27 15:20 | PC.NURSE ---
waiting environmental science program director back from Dr. Lora
--- NOTE | 2021-01-27 18:44 | PC.NURSE ---
per housekeeping room inspector pt has a bed assigned and it is to be cleaned. She will call when it is ready.
--- NOTE | 2021-01-27 20:28 | HMH.HP ---
*Admission Date: 01/27/21 *Chief complaint: sob *History of present illness: this is a patient [facility]Brought in by ambulance from [facility]. He states he got dizzy today and fell against a chair. Dr. Lora reports that he was told the patient had a syncopal episode. The patient tells me he did not pass out. He says his lower back was already hurting prior to the fall, but it hurts a little worse since the fall. He otherwise he denies any injuries. Denies any head or neck injury. He has not felt well since Tuesday. [facility] staff report that he has a fever. He reports a cough, rhinorrhea. Denies sore throat. Denies vomiting or diarrhea but has had nausea. Denies any pain other than low back. Dr. Lora reports that the patient has not been vaccinated against COVID-19.pt was admitted with low o2 sat at this time [facility] History I have reviewed the patient's past medical history: Yes Medical History: Reports:: Hyperlipidemia, Hypertension, Seizures Denies:: Cancer, Diabetes Mellitus Type 1, Diabetes Mellitus Type 2, Internal Pacemaker, MRSA *Have you ever received a pneumonia vaccine?: No *Have you received a flu vaccine this season?: No Other Medical History: Reports: Anemia, Thyroid Disease Other Surgeries: Yes: Appendectomy, Colonoscopy, Other. No: Pacemaker Amputation: No Fractures: No - *Social History Smoking Status: Never smoker Alcohol Intake: never *Occupational Status:: unemployed Housing: [employer] Household Members: other *Travel in the last 8 weeks: None Family Hx:: Cancer, Hyperlipidemia Review of Systems - Review of Systems Review of systems:: pertinent systems reviewed and negative unless documented below - Constitutional Reports fever(s), Reports weakness - Eyes Denies change in vision - ENT Denies sore throat - *Cardiovascular Denies chest pain - *Respiratory Denies cough - *Gastrointestinal Denies abdominal pain - *Genitourinary Denies blood in urine - *Musculoskeletal Denies joint pain - Integumentary/Breasts Denies rash - *Neurologic Reports dizziness, Denies headache(s), Denies numbness, Denies weakness - Psychiatric Denies confusion Meds Home Medications Medication Instructions Recorded Confirmed Type Levothyroxine Sodium 50 mg PO DAILY 01/11/19 11/14/20 History [Levothyroxine 50mcg (0.05mg) Tab] OLANZapine [Zyprexa] 20 mg PO DAILY 01/11/19 11/14/20 History Savage-3S/Dha/Epa/Fish Oil [Fish 1 each PO DAILY 01/11/19 11/14/[address] 1,000 mg Softgel] Simvastatin 20 mg PO DAILY 01/11/19 11/14/20 History buPROPion HCL [Wellbutrin XL] 150 mg PO DAILY 01/11/19 11/14/20 History ibuprofen 800 mg tablet 800 mg PO Q8H 01/14/20 11/14/20 History sertraline 100 mg tablet 100 mg PO DAILY tab 01/14/20 11/14/20 History Fluconazole [Diflucan 100mg tablet] 100 mg PO DAILY #30 tab 02/07/20 11/14/20 Rx Pantoprazole Sodium [Protonix 40mg 40 mg PO DAILY #30 tab 02/07/20 11/14/20 Rx tablet] Allergies Allergy/AdvReac Type Severity Reaction Status Date / Time haloperidol [HALOPERIDOL] Allergy Mild Verified 11/14/20 10:48 Penicillins [PENICILLINS] Allergy Mild Verified 11/14/20 10:48 Exam Vital signs and Labs for Last 24 Hours: Temp Pulse Resp BP Pulse Ox 100.5 F H 91 H 20 144/82 H 98 01/27/21 13:23 01/27/21 16:30 01/27/21 13:23 01/27/21 16:30 01/27/21 16:30 Laboratory Results - last 24 hr 01/27/21 13:20: SARS-CoV-2 (PCR) Detected A, Influenza A Untype (PCR) Not detected, Influenza Type B (PCR) Not detected 01/27/21 13:20: WBC 7.1, RBC 5.33, Hgb 16.4, Hct 48.4, MCV 90.9, MCH 30.7, MCHC 33.8, RDW 13.5, Plt Count 211, MPV 8.1, Neut % (Auto) 81.3 H, Lymph % (Auto) 7.2 L, Gladwin % (Auto) 7.8, Eos % (Auto) 2.1, Baso % (Auto) 1.6, Neut # (Auto) 5.8, Lymph # (Auto) 0.5 L, Gladwin # (Auto) 0.6, Eos # (Auto) 0.2, Baso # (Auto) 0.1 01/27/21 13:20: Sodium 139, Potassium 4.1, Chloride 103, Carbon Dioxide 24, Anion Gap
--- NOTE | 2021-01-27 21:07 | PC.NURSE ---
patient arrived to floor at 2044
[2021-01-27 21:08] LABS: Microscopic, Urine URINE MICROSCOPIC (MICROSCOPIC)
[2021-01-27 21:10] LABS: Appearance,Urine CLEAR (Clear); Bilirubin,Urine Negative (Negative); Blood, Urine Negative (Negative); Color,Urine YELLOW (Yellow); Glucose,Urine (UA) Negative (Negative); Ketones,Urine Negative (Negative); Leukocyte Esterase,Urine Negative (Negative); Nitrate,Urine Negative (Negative); Protein,Urine Negative (Negative); Specific Gravity, Urine 1.015 (1.005-1.030); Urobilinogen,Urine 0.2 EU/dl (0.2)
[2021-01-27 21:17] LABS: Bacteria,Urine Trace /lpf; Squamous Epithelial Cell,Urine Occasional #/hpf (0-5); WBC,Urine Occasional #/hpf (0-3)
[2021-01-28] VITALS (18 sets, daily range): BP systolic 127–166; BP diastolic 75–104; PULSE 60–78; RESP 16–22; TEMP 36.7–37.2; O2SAT 92–97; BMI 33.9
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
--- NOTE | 2021-01-28 07:56 | P.CONPHA_ITS ---
[facility] Pharmacy VTE Monitoring - Patient Demographics Admission date: 01/28/21 Report Date: 01/28/21 Time: 07:56 Allergies/Adverse Reactions: Patient Allergies haloperidol [HALOPERIDOL] Allergy (Mild, Verified 11/14/20 10:48) Penicillins [PENICILLINS] Allergy (Mild, Verified 11/14/20 10:48) Height: 1.68 m Weight: 95.821 kg Patient Problems: Current Active Problems Hypothyroidism (Acute) Hypertension (Acute) COVID-19 virus infection (Acute) Hypoxia (Acute) Syncope and collapse (Acute) Obesity (BMI 30-39.9) (Acute) Hiatal hernia with GERD (Acute) Cholelithiasis (Acute) Lumbar facet arthropathy (Acute) - VTE Risk Labs: VTE Related Lab Results Hgb 16.4 g/dL (14.1-18.0) 01/27/21 13:20 Hct 48.4 % (42.0-52.0) 01/27/21 13:20 Plt Count 211 K/mm3 (142-424) 01/27/21 13:20 BUN 13 mg/dl (9-20) 01/27/21 13:20 Creatinine 1.40 mg/dl (0.66-1.25) H 01/27/21 13:20 Estimated Creat Clear 68 mL/min (50-200) 01/27/21 13:20 Clinical Trial Participant: No - Prophylaxis VTE Prophylaxis Ordered?: Yes Types of VTE Prophylaxis: TEDS Knee High, Pharmacological Pharmacologic Type: Enoxaparin
--- NOTE | 2021-01-28 09:12 | SW/DCPLANNER ---
Addendum entered by [facility] 01/29/21 11:41: I spoke with patients family and they stated they will transport this patient back to [facility] today. Addendum entered by [facility] 01/29/21 11:24: Piter with [facility] has stated they do not have transportation for this patient: Gracie will not transport due to COVID positive and Adela with ambulance has stated their schedule is full for today and they can not transport. Patient is ambulatory and does not require oxygen. I have relayed information to Piter with [facility] and she will speak with her boss regarding transportation. Addendum entered by [facility] 01/28/21 14:35: Updated patient information has been faxed to Piter richards/ [facility]. Gudelia has stated that patient will not discharge till tomorrow. PT/OT stated that patient was fine to discharge back to [facility]. Original Note: This patient currently resides at [facility]. I spoke with Piter to confirm patient could potentially be stable for discharge this afternoon. Per patients nurse (Chepe) patient is currently on room air: will continue to monitor throughout morning. PT/OT will also evaluate patient this morning. I will follow up with this patient and Piter once evaluated by PT/OT.
--- NOTE | 2021-01-28 10:25 | HMH.PTEV ---
Physical Therapy Evaluation Rehab PT IP Evaluation Start: 01/28/21 08:11 Freq: ONCE Status: Active Protocol: Document 01/28/21 09:58 PHORNE (Rec: 01/28/21 10:24 PHORNE [id number]) Subjective/History History History Pt is 70 year old male admitted to [facility] after fall at [facility]. Pt reported feeling light-headed before falling. Pt reports no prior use of AD and was independent before admittance at [facility]. Eval completed by JOSHUA Martinez. Subjective Subjective Pt reported minimal pain this morning. Pt reported feeling short of breath during ambulation, but did feel better after returning to bed. Rehab PT IP Eval Objective Appearance Patient Behavior Appropriate,Cooperative Patient Orientation Place,Name,Birthday,Year Difficulty following instructions none Speech Pattern Clear,Appropriate,Coherent Ambulation Patient Able to Ambulate Yes Ambulation Observation IP General Gait Pattern Observation Shuffling Step Ambulation Distance (feet) 20 Ambulation Assistive Device None Ambulation Ability Contact Guard/Hand Hold Balance Ability to Arise Able, uses arms to help Sitting Balance Steady, safe Standing Balance Steady, wide stance Dynamic Sitting Balance Ability Normal Dynamic Standing Balance Ability Good Transfers Bed Transfer Ability Contact Guard/Hand Hold Sit to Stand Bed Transfer Ability Contact Guard/Hand Hold ROM All Extremities PT ROM Status WFL MMT All Extremities PT MMT WFL Rehab PT IP prob,goals,plan Problems Date of Evaluation: 01/28/21 PT IP Problems Gait,Balance,Safety Rehab Potential Rehab Potential Good Equipment Needs Assistive Devices None / NA Plan PT Intervention Plan Gait,Balance,Safety, Therapeutic Exercise PT Plan Frequency BID Duration LOS Discharge Goals Bed Transfer Ability Contact Guard/Hand Hold Sit to Stand Chair Transfer Ability Contact Guard/Hand Hold Ambulation Assistive Device None Ambulation Distance (feet) 30 Discharge Plan PT Discharge Plan Pt would be safe to d/c home to [facility] when medically stable. G -code Required No
--- NOTE | 2021-01-28 10:47 | HMH.PHAINT ---
MEDICATION RECONCILIATION COMPLETED USING EXTERNAL LIST FROM JACQUELIN LEUNG.
--- NOTE | 2021-01-28 11:31 | HMH.PULMCON ---
*Admission Date: 01/28/21 *Reason for consult:: COVID-19 pneumonia *History of present illness: Ms. Macias is a 70-year-old male no significant smoking is no prior respiratory complaints presented to the hospital after a questionable fall episode was found to be COVID-19 positive admission pulmonary was called for further management also reported to have excellent as per HPI. Patient admits chest congestion with mild respiratory distress [facility] History Medical History: Reports:: Hyperlipidemia, Hypertension, Seizures Denies:: Cancer, Diabetes Mellitus Type 1, Diabetes Mellitus Type 2, Internal Pacemaker, MRSA *Have you ever received a pneumonia vaccine?: No *Have you received a flu vaccine this season?: No Other Medical History: Reports: Anemia, Thyroid Disease Other Surgeries: Yes: Appendectomy, Colonoscopy, Other. No: Pacemaker Amputation: No Fractures: No - *Social History Last grade of school completed: Some college Smoking Status: Never smoker Alcohol Intake: never *Occupational Status:: retired Housing: [employer]dc Household Members: other *Travel in the last 8 weeks: None Family Hx:: No significant family history ROS - Cons Reports chills, Denies anorexia, Denies body ache(s) - ENT Denies difficulty swallowing - Card Reports shortness of breath, Reports shortness of breath with activity - Resp Respiratory: Reports chest congestion, Denies non-productive cough, Reports dyspnea, Reports dyspnea on exertion, Denies excessive phlegm production, Denies pain on inspiration, Denies pain with cough, Denies cough with sputum production - GI Gastrointestingal: Denies: abdominal pain - [place] Musculoskeletal: Reports back pain - Psych Denies lack of enjoyment, Denies anxiety Meds Home Medications Medication Instructions Recorded Confirmed Type Levothyroxine Sodium 50 mcg PO DAILY 01/11/19 01/28/21 History [Levothyroxine 50mcg (0.05mg) Tab] OLANZapine [Zyprexa] 20 mg PO DAILY 01/11/19 01/28/21 History Lewis-3S/Dha/Epa/Fish Oil [Fish 1 each PO TID 01/11/19 01/28/[address] 1,000 mg Softgel] Simvastatin 20 mg PO DAILY 01/11/19 01/28/21 History buPROPion HCL [Wellbutrin XL] 150 mg PO DAILY 01/11/19 01/28/21 History ibuprofen 800 mg tablet 800 mg PO Q8H PRN 01/14/20 01/28/21 History sertraline 100 mg tablet 200 mg PO DAILY tab 01/14/20 01/28/21 History Fluconazole [Diflucan 100mg tablet] 100 mg PO DAILY 01/28/21 01/28/21 History Loperamide HCl [Anti-Diarrheal] 2 mg PO Q4-6H PRN 01/28/21 01/28/21 History Pantoprazole Sodium [Protonix 40mg 40 mg PO DAILY 01/28/21 01/28/21 History tablet] ondansetron HCL [Zofran 4mg Tab*] 4 mg PO Q4-6H PRN 01/28/21 01/28/21 History Allergies Allergy/AdvReac Type Severity Reaction Status Date / Time haloperidol [HALOPERIDOL] Allergy Mild Verified 11/14/20 10:48 Penicillins [PENICILLINS] Allergy Mild Verified 11/14/20 10:48 Exam - Constitutional Constitutional:: Present: no acute distress, comfortable - HENMT Exam HENMT: Present: normocephalic, atraumatic - Eye Exam Eyes:: Present: normal appearance both eyes and related structures - Neck Exam Neck:: Present: carotid bruit - Respiratory Exam Respiratory:: Present: able to speak in complete sentences, lungs clear, normal breath sounds, no respiratory distress, crackles. Absent: wheezing - Cardiovascular Exam Cardiac:: Present: S1, S2 - GI Exam GI:: Present: soft - Skin Exam Skin: Present: warm, no rash, dry - Neurological Exam Neurological: Present: alert, awake, normal cognition - Extremities Exam Extremities: Present: no cyanosis, no clubbing, no edema Internal Medicine - CN: Reslt - Labs CBC & Chem 7: 01/27/21 13:20 01/27/21 13:20 Labs: Short CBC 01/27/21 Range/Units 13:20 WBC 7.1 (4.8-10.8) K/mm3 Hgb 16.4 (14.1-18.0) g/dL Hct 48.4 (42.0-52.0) % Plt Count 211 (142-424) K/mm3 BMP 01/27/21 13:20 Sodium 139 Potassium 4.1 Chloride 103
--- NOTE | 2021-01-28 11:53 | HMH.OTEV ---
OT Inpatient Evaluation Rehab OT IP Evaluation Start: 01/28/21 08:11 Freq: ONCE Status: Complete Protocol: Document 01/28/21 11:46 BERNICEPORTIA (Rec: 01/28/21 11:53 ODINROSE MARIE [id number]) Rehab OT IP Assessment Subjective History *Admission Date: 01/27/21 this is a patient from [facility]-Brought in by ambulance from [facility]. He states he got dizzy today and fell against a chair. Dr. Lora reports that he was told the patient had a syncopal episode. The patient tells me he did not pass out. He says his lower back was already hurting prior to the fall, but it hurts a little worse since the fall. He otherwise he denies any injuries. Denies any head or neck injury. He has not felt well since Tuesday. [facility] staff report that he has a fever. He reports a cough, rhinorrhea. Denies sore throat. Denies vomiting or diarrhea but has had nausea. Denies any pain other than low back. Dr. Lora reports that the patient has not been vaccinated against COVID-19.pt was admitted with low o2 sat at this time [facility] History I have reviewed the patient's past medical history: Yes Medical History: Reports:: Hyperlipidemia, Hypertension, Seizures Patient currently lives in residental living at [facility]. Patient ambulated independently and completed all ADLs independently. [facility] provides patient medication and meals. Subjective I can get up. Instructed Patient on proper hand and foot placement to complete supine->sit @ EOB->
--- NOTE | 2021-01-28 12:55 | HMH.DCSUM ---
General - General Admission date:: 01/27/21 Discharge date: 01/29/21 HPI HPI: this is a patient from local [facility]Brought in by ambulance from [facility]. He states he got dizzy today and fell against a chair. Dr. Lora reports that he was told the patient had a syncopal episode. The patient tells me he did not pass out. He says his lower back was already hurting prior to the fall, but it hurts a little worse since the fall. He otherwise he denies any injuries. Denies any head or neck injury. He has not felt well since Tuesday. [facility] staff report that he has a fever. He reports a cough, rhinorrhea. Denies sore throat. Denies vomiting or diarrhea but has had nausea. Denies any pain other than low back. Dr. Lora reports that the patient has not been vaccinated against COVID-19.pt was admitted with low o2 sat at this time Hospital Course Hospital Course: Ordering Physician: Jah Keane MD Date of Service: 01/27/21 Procedure(s): XR lumbar spine 2-3V Accession Number(s): [id number] cc: Gilberto Cortes MD; Shayne Lora MD~ PROCEDURE: XR LUMBAR SPINE 2-3V CLINICAL INDICATION: fall Posttraumatic pain COMPARISON: No exams were available for comparison FINDINGS: Normal alignment. No fracture or dislocation. No lytic or blastic change. Small anterior osteophytes are present in the lower thoracic spine and within the lumbar spine. Facet hypertrophic changes are present at L4-L5 and S1. IMPRESSION: Mild degenerative changes, no acute finding Ordering Physician: Jah Keane MD Date of Service: 01/27/21 Procedure(s): XR pelvis 1-2V Accession Number(s): [id number] cc: iGlberto Cortes MD; Shayne Lora MD~ PROCEDURE: XR PELVIS 1-2V CLINICAL INDICATION: fall Pain COMPARISON: CR XR PELVIS 1-2V from 01/11/2019 TECHNIQUE: XR Pelvis AP View FINDINGS: No fracture or dislocation is evident. There are mild osteoarthritic changes of the hips. No lytic or blastic change. IMPRESSION: No acute findings. Ordering Physician: Jah Keane MD Date of Service: 01/27/21 Procedure(s): XR chest 2V Accession Number(s): [id number] cc: Gilberto Cortes MD; Shayne Lora MD~ PROCEDURE: XR CHEST 2V CLINICAL HISTORY: fever cough COMPARISON: CR XR CHEST 2V from 01/11/2019 CR XR CHEST 2V from 12/25/2019 FINDINGS: The cardiomediastinal silhouette and pulmonary vascularity are within normal limits. There is minimal blunting of the left CP angle suggesting small effusion versus pleural thickening. The remaining lungs are clear. Degenerative changes thoracic spine IMPRESSION: Small effusion versus pleural thickening left CP angle otherwise negative Ordering Physician: Jah Keane MD Date of Service: 01/27/21 Procedure(s): CT angio chest PE protocol Accession Number(s): [id number] cc: Gilberto Cortes MD; Shayne Lora MD; Jah Keane MD~ PROCEDURE: CT ANGIO CHEST PE PROTOCOL CLINCIAL INDICATION: syncope, low O2 sat, covid, r/o PE COMPARISON: CT ABDPELW/O CT ABD PELVIS W/O CONTRAST from 09/16/2016 TECHNIQUE: IV Contrast: 70ML Isovue 370 Axial images obtained with sagittal and coronal reformats. All CT scans at the facility use one or more dose reduction, viz: automated exposure control, ma/kV adjustment per patient size (including targeted exams where dose is matched to indication, i.e. head), or iterative reconstruction technique. FINDINGS: HEART AND MEDIASTINAL STRUCTURES: No mediastinal or hilar mass or adenopathy. No evidence of pulmonary embolus, aortic aneurysm, or aortic dissection. Mild thickening of the distal esophagus with moderate-sized hiatal hernia and a small amount air noted in the esophagus. LUNGS AND PLEURAL SPACES: No lobar consolidation or collapse. Minimal atelectatic changes are present in the lung bases. Left-sided pericardial fat pad is present
--- NOTE | 2021-01-28 16:39 | PC.NURSE ---
PT IS AOX4, ABLE TO MAKE NEEDS KNOWN TO STAFF, HAS TOLERRATED RA WELL T/O ENTIRE SHIFT WITH O2 SATS IN THE HIGH 90'S, HE DENIES SOB AND PAIN, NO N/V/D NOTED THIS SHIFT, MODERATE SIZE BM NOTED. PT WAS ABLE TO AMBULATE TO [facility] UNDER HIS OWN POWER, TOLERATING DIET WELL.
--- NOTE | 2021-01-28 17:28 | HMH.ACPN2 ---
Internal Medicine - PN: Subj *Date: 01/28/21 *Time: 09:10 Interval history: pt states he is doing well. has been off o2 Exam Vital signs and Labs for Last 24 Hours: Temp Pulse Resp BP Pulse Ox 99.0 F 76 16 156/86 H 94 L 01/28/21 16:00 01/28/21 16:00 01/28/21 16:00 01/28/21 16:00 01/28/21 17:23 Laboratory Results - last 24 hr 01/27/21 20:40: Urine Color Yellow, Urine Appearance Clear, Urine pH 6.0, Ur Specific [place] 1.015, Urine Protein Negative, Urine Glucose (UA) Negative, Urine Ketones Negative, Urine Blood Negative, Urine Nitrate Negative, Urine Bilirubin Negative, Urine Urobilinogen 0.2, Ur Leukocyte Esterase Negative, Urine RBC None, Urine WBC Occasional, Ur Squamous Epith Cells Occasional, Urine Bacteria Trace I & O for Last 24 hours: Intake & Output 01/26/21 01/27/21 01/28/21 01/29/21 11:59 11:59 11:59 11:59 Intake Total 1460 / 1460 240 / 240 Output Total 1950 / 1950 1100 / 1100 Balance -490 / -490 -860 / -860 Weight 211 lb 4 oz - Constitutional no acute distress - *Routine HEENT Exam Head: Present: normocephalic Eye: Present: PERRL ENT: Present: mucous membranes moist - *Routine Neck Exam Present: supple. Absent: lymphadenopathy - *Routine Respiratory Exam Present: CTA bilaterally - *Routine Cardiovascular Exam Present: RRR - *Routine Abdominal Exam Present: soft, normoactive bowel sounds. Absent: tenderness - *Routine Extremities Exam Absent: cyanosis, clubbing, edema - *Routine Skin Exam Present: warm. Absent: rash - *Routine Neurological Exam Present: alert - Routine Psychiatric Exam Present: normal affect Assessment and Plan (1) Obesity (BMI 30-39.9) Status: Acute Category: Medical Code(s): E66.9 - Obesity, unspecified (2) COVID-19 virus infection Status: Acute Category: Medical Code(s): U07.1 - COVID-19 (3) Hypoxia Status: Acute Category: Medical Code(s): R09.02 - Hypoxemia (4) Hypertension Status: Acute Qualifiers: Hypertension type: primary hypertension Qualified Code(s): I10 - Essential (primary) hypertension Category: Medical Code(s): I10 - Essential (primary) hypertension (5) Hypothyroidism Status: Acute Qualifiers: Hypothyroidism type: acquired Qualified Code(s): E03.9 - Hypothyroidism, unspecified Category: Medical Code(s): E03.9 - Hypothyroidism, unspecified (6) Hiatal hernia with GERD Status: Acute Category: Medical Code(s): K21.9 - Gastro-esophageal reflux disease without esophagitis; K44.9 - Diaphragmatic hernia without obstruction or gangrene (7) Cholelithiasis Status: Acute Qualifiers: Cholelithiasis location: gallbladder Cholecystitis presence: without cholecystitis Biliary obstruction: without biliary obstruction Qualified Code(s): K80.20 - Calculus of gallbladder without cholecystitis without obstruction Category: Medical Code(s): K80.20 - Calculus of gallbladder without cholecystitis without obstruction (8) Lumbar facet arthropathy Status: Acute Category: Medical Code(s): M47.816 - Spondylosis without myelopathy or radiculopathy, lumbar region - Assessment and plan all Dx Assessment and Plan for all problems:: belinda rounded earlier all orders per dr belinda chairez dc in am
[2021-01-29] VITALS: PULSE 70
[2021-01-29 03:57] VITALS: BP 162/88; PULSE 71; RESP 17; TEMP 36.4; O2SAT 95
[2021-01-29 04:00] VITALS: PULSE 70
[2021-01-29 04:44] VITALS: BMI 34.0
--- NOTE | 2021-01-29 06:00 | PC.NURSE ---
Patient has been on RA with O2 sats ranging from 92-96% this shift. No s/s of acute distress noted, call light within reach, bed at lowest level for safety; will continue to monitor.
[2021-01-29 06:30] VITALS: O2SAT 93
[2021-01-29 07:17] LABS: Anion Gap 14.1 mEq/L (5-15); Blood Urea Nitrogen 20 mg/dl (9-20); Calcium 8.6 mg/dl (8.4-10.2); Carbon Dioxide 27 mmol/L (22.0-30.0); Chloride 106 mmol/L (98-107); Creatinine Clearance Estimated 80 mL/min (50-200); Estimated Glomerular Filt Rate 60 ml/min (>60); GFR (African American) 73 ML/MIN (>60); Glucose 101 mg/dl (74-100); Potassium 4.1 mmoL/L (3.5-5.1); Sodium 143 mmol/L (136-145)
[2021-01-29 07:18] LABS: Alanine Aminotransferase 114 U/L (12-78); Albumin Level 3.6 g/dl (3.5-5.0); Alkaline Phosphatase 104 U/L (38-126); Aspartate Amino Transferase 94 U/L (17-59); Bilirubin,Direct 0.4 mg/dl (0.0-0.4); Bilirubin,Total 0.4 mg/dl (0.2-1.3); Total Protein,Serum 6.7 g/dl (6.3-8.2)
[2021-01-29 07:53] VITALS: BP 170/110; PULSE 81; RESP 21; TEMP 37.3; O2SAT 92
[2021-01-29 08:00] VITALS: PULSE 80; O2SAT 96
--- NOTE | 2021-01-29 11:30 | HMH.PULMPN ---
Internal Medicine - PN: Subj *Date: 01/29/21 *Time: 11:30 Interval history: No acute respiratory events overnight. Patient continued to remain on room air. He admits significant improvement in his symptoms. Exam - Constitutional Constitutional:: Present: no acute distress, comfortable - HENMT Exam HENMT: Present: normocephalic, atraumatic - Eye Exam Eyes:: Present: normal appearance both eyes and related structures - Neck Exam Neck:: Present: normal visual inspection - Respiratory Exam Respiratory:: Present: able to speak in complete sentences, no respiratory distress. Absent: crackles, wheezing - Cardiovascular Exam Cardiac:: Present: S1, S2 - GI Exam GI:: Present: soft - Skin Exam Skin: Present: warm, no rash - Neurological Exam Neurological: Present: alert, awake - Extremities Exam Extremities: Present: no cyanosis, no clubbing Assessment and Plan (1) Obesity (BMI 30-39.9) Status: Acute Category: Medical Code(s): E66.9 - Obesity, unspecified (2) COVID-19 virus infection Status: Acute Category: Medical Code(s): U07.1 - COVID-19 (3) Hypoxia Status: Acute Category: Medical Code(s): R09.02 - Hypoxemia (4) Hypertension Status: Acute Qualifiers: Hypertension type: primary hypertension Qualified Code(s): I10 - Essential (primary) hypertension Category: Medical Code(s): I10 - Essential (primary) hypertension (5) Hypothyroidism Status: Acute Qualifiers: Hypothyroidism type: acquired Qualified Code(s): E03.9 - Hypothyroidism, unspecified Category: Medical Code(s): E03.9 - Hypothyroidism, unspecified (6) Hiatal hernia with GERD Status: Acute Category: Medical Code(s): K21.9 - Gastro-esophageal reflux disease without esophagitis; K44.9 - Diaphragmatic hernia without obstruction or gangrene (7) Cholelithiasis Status: Acute Qualifiers: Cholelithiasis location: gallbladder Cholecystitis presence: without cholecystitis Biliary obstruction: without biliary obstruction Qualified Code(s): K80.20 - Calculus of gallbladder without cholecystitis without obstruction Category: Medical Code(s): K80.20 - Calculus of gallbladder without cholecystitis without obstruction (8) Lumbar facet arthropathy Status: Acute Category: Medical Code(s): M47.816 - Spondylosis without myelopathy or radiculopathy, lumbar region - Assessment and plan all Dx Assessment and Plan for all problems:: #COVID-19 pneumonia: 70-year-old male no prior respiratory complaint no significant smoking history presented evaluation of fall found to be possible COVID-[address] of her head with no change evidence of pulmonary them, did not change evidence of groundglass or consolidation. Auscultation of bilateral clear breath sounds. Patient respiratory status continued to be stable, remained on room air saturating 95% on room air. Chest clear to auscultate. Admits significant improvement in his symptoms. Plan: Continue remdesivir until discharge Continue oral doxycycline for total of 5 days. Combivent every 6 hours as needed #Thank you for involving pulmonary in this patient care. We'll follow the patient in pulmonary clinic in 4 weeks. Please call with any questions or concerns.
== END 2021-01-29 12:10 | disposition home or self-care (01) ==
LOC: ER 13:45 → 2ND 17:01 → ICU 20:50
PROVIDERS: Admitting Provider Emergency Medicine; Emergency Provider Emergency Medicine; PCP Emergency Medicine; Visit Provider Emergency Medicine
DX: U07.1 COVID-19 (principal); I10 Essential (primary) hypertension; E03.9 Hypothyroidism, unspecified; M47.816 Spondylosis without myelopathy or radiculopathy, lumbar region; R09.02 Hypoxemia; J12.82 Pneumonia due to coronavirus disease 2019; G40.909 Epilepsy, unspecified, not intractable, without status epilepticus; K21.9 Gastro-esophageal reflux disease without esophagitis; Z79.899 Other long term (current) drug therapy; K80.20 Calculus of gallbladder without cholecystitis without obstruction
CPT/HCPCS: G0378; Q0243; 36415; 71046; 71275; 72100; 72170; 80048; 80053; 80076; 81001; 83605; 85025; 87040; 93005; 94640; 96365; 97162; 97165; 99285; Q9967; U0003

== ENCOUNTER 2021-02-02 19:11 | Emergency (ER) | payer MEDICARE, OTHER, SELFPAY ==
[2021-02-02 19:15] VITALS: BP 163/92; PULSE 96; RESP 24; TEMP 38; O2SAT 95; BMI 33.9
--- NOTE | 2021-02-02 19:27 | XR_ITS ---
PROCEDURE INFORMATION: Exam: XR Right Knee Exam date and time: 02/02/2021 7:27 PM Age: 70 years old Clinical indication: Injury or trauma; Fall; Blunt trauma; Knee; Right; Patient HX: PT fell over a chair TECHNIQUE: Imaging protocol: XR Right knee. Views: 3 views. COMPARISON: No relevant prior studies available. FINDINGS: Bones/joints: No acute fracture or dislocation. There are small patellar enthesophytes. Soft tissues: There is minimal medial soft tissue swelling. IMPRESSION: No acute fracture.
--- NOTE | 2021-02-02 19:27 | XR_ITS ---
PROCEDURE INFORMATION: Exam: XR Right Elbow Exam date and time: 02/02/2021 7:27 PM Age: 70 years old Clinical indication: Injury or trauma; Fall; Blunt trauma (contusions or hematomas); Right; Patient HX: PT fell over chair , abrasion on elbow TECHNIQUE: Imaging protocol: XR Right elbow. Views: 3 or more views. COMPARISON: CR XR WRIST RT MIN 3V 01/11/2019 9:51 PM FINDINGS: Bones/joints: No acute fracture or dislocation. There are densities adjacent to the medial and lateral epicondyles of the distal humerus and a small osteophyte of the olecranon. Soft tissues: There is mild lateral soft tissue swelling. IMPRESSION: 1. No acute fracture. 2. Densities adjacent to the medial and lateral epicondyles of the distal humerus may be secondary to calcific tendinopathy in the appropriate clinical setting.
--- NOTE | 2021-02-02 19:27 | CT_ITS ---
PROCEDURE INFORMATION: Exam: CT Head Without Contrast Exam date and time: 02/02/2021 7:27 PM Age: 70 years old Clinical indication: Injury or trauma; Fall; Blunt trauma (contusions or hematomas); Consciousness not specified; Patient HX: Patient fell over a chair TECHNIQUE: Imaging protocol: Computed tomography of the head without contrast. Radiation optimization: All CT scans at this facility use at least one of these dose optimization techniques: automated exposure control; mA and/or kV adjustment per patient size (includes targeted exams where dose is matched to clinical indication); or iterative reconstruction. COMPARISON: CT HEAD/BRAIN WO CON 01/11/2019 9:36 PM FINDINGS: Brain: Moderate chronic brain volume loss and chronic small vessel ischemic changes. Cerebral ventricles: No ventriculomegaly. Paranasal sinuses: Mild mucosal thickening in the paranasal sinuses. Mastoid air cells: Visualized mastoid air cells are well aerated. Bones/joints: Unremarkable. No acute fracture. Soft tissues: Unremarkable. Nasopharynx: Nasopharyngeal surgical clips. IMPRESSION: No acute intracranial findings.
--- NOTE | 2021-02-02 19:27 | CT_ITS ---
PROCEDURE INFORMATION: Exam: CT Cervical Spine Without Contrast Exam date and time: 02/02/2021 7:27 PM Age: 70 years old Clinical indication: Injury or trauma; Fall; Blunt trauma; Patient HX: Patient fell over a chair TECHNIQUE: Imaging protocol: Computed tomography images of the cervical spine without contrast. Radiation optimization: All CT scans at this facility use at least one of these dose optimization techniques: automated exposure control; mA and/or kV adjustment per patient size (includes targeted exams where dose is matched to clinical indication); or iterative reconstruction. COMPARISON: CT CERVICAL SPINE WO CON 01/11/2019 9:40 PM FINDINGS: Bones/joints: No acute fracture. Normal alignment. Discs/Spinal canal/Neural foramina: No significant disc protrusion. No severe spinal canal stenosis. No significant neural foraminal narrowing. Dental: Multiple dental cavities with periapical lucencies that likely represent dental infection. Nasopharynx: Metallic bodies in the tongue and nasopharynx are noted. Lungs: Lung apices are normal. Soft tissues: Unremarkable. IMPRESSION: 1. No acute fracture or malalignment of the cervical spine. 2. Multiple dental cavities with periapical lucencies that likely represent dental infection.
--- NOTE | 2021-02-02 19:27 | CT_ITS ---
PROCEDURE INFORMATION: Exam: CT Lumbar Spine Without Contrast Exam date and time: 02/02/2021 7:27 PM Age: 70 years old Clinical indication: Injury or trauma; Fall; Blunt trauma (contusions or hematomas); Patient HX: Patient fell over a chair TECHNIQUE: Imaging protocol: Computed tomography images of the lumbar spine without contrast. Radiation optimization: All CT scans at this facility use at least one of these dose optimization techniques: automated exposure control; mA and/or kV adjustment per patient size (includes targeted exams where dose is matched to clinical indication); or iterative reconstruction. COMPARISON: CR XR LUMBAR SPINE 2-3V 01/27/2021 1:[address] of the abdomen and pelvis from 09/16/2016 FINDINGS: Vertebrae: No acute fracture. Normal alignment. Discs/Spinal canal/Neural foramina: There is multilevel facet arthropathy. There are degenerative changes of the right sacroiliac joint. No significant disc protrusion. No severe spinal canal stenosis. No significant neural foraminal narrowing. Kidneys and ureters: Note is made of bilateral renal cysts measuring up to 2.9 cm in the lower pole of the left kidney. No renal calculi or hydronephrosis. Soft tissues: Unremarkable. IMPRESSION: No acute findings. COMMENTS: Consistent with the [employer]'s Incidental Findings Committee white paper (J Am Darrell Radiol 2018): Any incidental renal lesion less than 1 cm or classified as too small to characterize, or any incidental cystic renal lesion characterized as simple-appearing, is likely benign. No follow-up imaging is recommended for these lesions per consensus recommendations based on imaging criteria.
--- NOTE | 2021-02-02 19:31 | XR_ITS ---
PROCEDURE INFORMATION: Exam: XR Pelvis Exam date and time: 02/02/2021 7:31 PM Age: 70 years old Clinical indication: Injury or trauma; Fall; Blunt trauma (contusions or hematomas); Does not apply; Pelvic region; Injury details: PT fell over a chair TECHNIQUE: Imaging protocol: XR pelvis. Views: 1 or 2 view. COMPARISON: CR XR PELVIS 1-2V 01/27/2021 1:49 PM FINDINGS: Bones/joints: No evidence of acute displaced fracture, although portions of the sacrum are obscured by overlying bowel gas. Unchanged mild degenerative changes of the hips and unchanged degenerative changes of the right sacroiliac joints and visualized lower lumbar spine. Soft tissues: Unremarkable. IMPRESSION: No evidence of acute displaced fracture.
--- NOTE | 2021-02-02 19:31 | XR_ITS ---
PROCEDURE INFORMATION: Exam: XR Chest Exam date and time: 02/02/2021 7:31 PM Age: 70 years old Clinical indication: Injury or trauma; Fall; Blunt trauma (contusions or hematomas); Patient HX: PT fell over a chair TECHNIQUE: Imaging protocol: XR of the chest. Views: 4 or more views. COMPARISON: CR XR CHEST 2V 01/27/2021 1:53 PM FINDINGS: Lungs: The lungs are slightly hypoinflated with bronchovascular crowding. No focal consolidation. Pleural spaces: No evidence of sizeable effusion or pneumothorax on this portable supine radiograph. Heart/Mediastinum: The cardiomediastinal silhouette is stable. Bones/joints: Unremarkable. No acute displaced fracture. IMPRESSION: No evidence of acute abnormality on this portable supine radiograph.
--- NOTE | 2021-02-02 20:12 | HMH.EDFALL ---
ED Disposition Clinical Impression: COVID-19 virus infection, Multiple contusions Fall Qualifiers: Encounter type: initial encounter Qualified Code(s): W19.XXXA - Unspecified fall, initial encounter Concussion without loss of consciousness Qualifiers: Encounter type: initial encounter Qualified Code(s): S06.0X0A - Concussion without loss of consciousness, initial encounter Disposition: Home, Self-Care Condition on Discharge: Good Instructions: DI for Contusion Additional Instructions: fluids and advil and tyenol Referrals: Shayne Lora MD [Primary Care Provider] - - Critical Care Critical Care Time: No Attestation: On 02/02/21, the high probability of a clinically significant, sudden or life threatening deterioration of the following system(s) required my full and direct attention, intervention and personal management. The time I documented below is in addition to time spent performing reported procedures but includes the following listed in this critical care notation. Medical Decision Making - Medical Records Medical records reviewed: Yes: I reviewed the patient's medical records. - [place] Inquiry Pt receiving controlled substance: No Vital Signs: 02/02/21 19:15 Temperature 100.4 F H Temperature Source Oral Pulse Rate [Right] 96 H Respiratory Rate 24 Blood Pressure [Right Arm] 163/92 H Blood Pressure Mean [Right Arm] 115 Blood Pressure Source [Right Arm] Automatic Cuff Blood Pressure Position [Right Arm] Supine 02 Sat by Pulse Oximetry 95 Oxygen Delivery Method Room Air - Lab Data Lab results reviewed: Yes: I reviewed the patient's lab results. Orders (Tests/Meds): ED MEDICATIONS Generic Name Dose Route Start Last Admin Trade Name Freq PRN Reason Stop Dose Admin Sodium Chloride 1,000 mls @ 999 mls/hr 02/02/21 21:00 02/02/21 20:55 Sod Chlor 0.9% 1000ml Bag IV 02/02/21 22:00 999 mls/hr .Q1H1M NATASHA Administration - Radiology Data #1 Image(s): Chest, Elbow, Pelvis, Knee Image Reviewed: Yes I have reviewed radiologist's interpretation Preliminary Findings: No Fracture Seen - CT Data CT Scan: Head, C-Spine, L-Spine Time Received: 21:[address] Reviewed: Yes: I have viewed the radiologist's interpretation Preliminary Findings: No Fracture Seen Medical Decision Narrative: stable exam and vital signs with neg xrays Fall HPI - General Chief Complaint: Fall Stated Complaint: fall Time Seen by Provider: 02/02/21 20:00 Mode of Arrival: EMS Source of Information: Patient, Medical Record Limitations: No Limitations Description of Symptoms (Recalled from ER Triage Doc. by RN): Pt tested Positive for COVID 19 on 01/27/21 and today he got dizzy and fell hitting his head without LOC and c/o pain to his right elbow, right knee and lower back. Pt able to move all ext. No deformities noted. - History of Present Illness HPI Narrative: pt with known covid-19 fell with injury to neck and back - no loc and no other c/o MD complaint: fall Onset (ago): hour(s) Fall from: standing Fall witnessed: no Place fall occurred: [facility] Loss of consciousness: none Prolonged down time: no Context: tripped/slipped, recent illness Location of injury: head, neck, back Location of injury - extremities: Right: elbow, knee Severity: moderate Associated symptoms (after fall): denies - Related Data Home Medications Medication Instructions Recorded Confirmed Levothyroxine Sodium 50 mcg PO DAILY 01/11/19 01/28/21 [Levothyroxine 50mcg (0.05mg) Tab] OLANZapine [Zyprexa] 20 mg PO DAILY 01/11/19 01/28/21 [place]-3S/Dha/Epa/Fish Oil [Fish 1 each PO TID 01/11/19 01/28/[address] 1,000 mg Softgel] Simvastatin 20 mg PO DAILY 01/11/19 01/28/21 buPROPion HCL [Wellbutrin XL] 150 mg PO DAILY 01/11/19 01/28/21 ibuprofen 800 mg tablet 800 mg PO Q8H PRN 01/14/20 01/28/21 sertraline 100 mg tablet 200 mg PO DAILY tab 01/14/20 01/28/21 Fluconazole [Diflucan 100mg tablet] 100 mg P
[2021-02-02 21:45] VITALS: BP 159/87; PULSE 85; RESP 19; TEMP 37.2; O2SAT 96
== END 2021-02-02 23:36 | disposition home or self-care (01) ==
PROVIDERS: Emergency Provider Emergency Medicine; PCP Emergency Medicine
DX: S06.0X0A Concussion without loss of consciousness, initial encounter (principal); S50.01XA Contusion of right elbow, initial encounter; S80.01XA Contusion of right knee, initial encounter; S30.0XXA Contusion of lower back and pelvis, initial encounter; W18.39XA Other fall on same level, initial encounter; Y92.129 Unspecified place in nursing home as the place of occurrence of the external cause; U07.1 COVID-19
CPT/HCPCS: 70450; 71045; 72125; 72131; 72170; 73080; 73562; 96365; 99283

== ENCOUNTER 2021-02-06 04:13 | Emergency (ER) | payer MEDICARE, OTHER, SELFPAY ==
[2021-02-06] VITALS (8 sets, daily range): BP systolic 97–130; BP diastolic 58–78; PULSE 78–91; RESP 17–21; TEMP 37.2–37.8; O2SAT 92–98; BMI 27.2
--- NOTE | 2021-02-06 04:04 | ECG_ITS ---
APPROVED REPORT Exam: Resting ECG HR:90 bpm ECG Measurements Heart Rate 90 AXES ND 144 P 32 QRSd 92 QRS 77 QT 378 T 43 QTc 462 Conclusion Normal sinus rhythm Nonspecific ST abnormality Abnormal ECG Electronically signed by : Jayme Fregoso MD 02/08/2021 16:11:29
--- NOTE | 2021-02-06 04:27 | XR_ITS ---
PROCEDURE INFORMATION: Exam: XR Chest Exam date and time: 02/06/2021 4:27 AM Age: 70 years old Clinical indication: Cough and shortness of breath; Additional info: Covid+, SOA, cough TECHNIQUE: Imaging protocol: XR of the chest. Views: 1 view. COMPARISON: CR XR CHEST AP 02/02/2021 8:09 PM FINDINGS: Lungs: There appears to be patchy airspace disease developing at the left base and to a lesser extent right base. Pleural spaces: Unremarkable. No pleural effusion. No pneumothorax. Heart/Mediastinum: Unremarkable. No cardiomegaly. Bones/joints: Unremarkable. IMPRESSION: There appears to be patchy airspace disease developing at the left base and to a lesser extent right base.
--- NOTE | 2021-02-06 04:32 | HMH.EDSOB ---
ED Disposition Clinical Impression: COVID-19 virus infection Disposition: Home, Self-Care Condition on Discharge: Fair Instructions: DI for COVID-19 (Suspected or Confirmed ) Additional Instructions: fluids and see pcp for follo wup Prescriptions: levoFLOXacin [Levaquin 500mg tab] 500 mg PO DAILY #7 tab Prescription Printed predniSONE [Prednisone 20mg Tab] 20 mg PO BID #10 tab Prescription Printed Referrals: Shayne Lora MD [Primary Care Provider] - - Critical Care Critical Care Time: No Attestation: On 02/06/21, the high probability of a clinically significant, sudden or life threatening deterioration of the following system(s) required my full and direct attention, intervention and personal management. The time I documented below is in addition to time spent performing reported procedures but includes the following listed in this critical care notation. Medical Decision Making - Medical Records Medical records reviewed: Yes: I reviewed the patient's medical records. - Arik Inquiry Pt receiving controlled substance: No Vital Signs: 02/06/21 04:07 02/06/21 04:30 02/06/21 05:00 Temperature 100.1 F H Temperature Source Rectal Pulse Rate 87 91 H Respiratory Rate 21 21 20 Blood Pressure 105/74 L 105/67 L Blood Pressure [Right Arm] 126/76 Blood Pressure Mean [Right Arm] 92 Blood Pressure Source [Right Arm] Automatic Cuff 02 Sat by Pulse Oximetry 93 L 92 L 93 L Oxygen Delivery Method Room Air 02/06/21 05:30 02/06/21 06:00 02/06/21 06:30 Temperature Temperature Source Pulse Rate 80 82 78 Respiratory Rate 17 18 20 Blood Pressure 106/67 L 99/58 L 97/58 L Blood Pressure [Right Arm] Blood Pressure Mean [Right Arm] Blood Pressure Source [Right Arm] 02 Sat by Pulse Oximetry 95 93 L 92 L Oxygen Delivery Method Room Air Room Air Room Air 02/06/21 06:45 Temperature Temperature Source Pulse Rate 79 Respiratory Rate 17 Blood Pressure 99/67 L Blood Pressure [Right Arm] Blood Pressure Mean [Right Arm] Blood Pressure Source [Right Arm] 02 Sat by Pulse Oximetry 93 L Oxygen Delivery Method Room Air - Lab Data Lab results reviewed: Yes: I reviewed the patient's lab results. Lab Results 02/06/21 04:21: WBC 7.3, RBC 4.88, Hgb 14.9, Hct 44.9, MCV 92.1, MCH 30.5, MCHC 33.1, RDW 13.8, Plt Count 140 L, MPV 9.8, Neut % (Auto) 89.5 H, Lymph % (Auto) 6.8 L, Bond % (Auto) 3.5, Eos % (Auto) 0.0 L, Baso % (Auto) 0.3, Neut # (Auto) 6.5, Lymph # (Auto) 0.5 L, Bond # (Auto) 0.3, Eos # (Auto) 0.0, Baso # (Auto) 0.0, Total Counted 100, Neutrophils % (Manual) 96 H, Lymphocytes % (Manual) 2 L, Monocytes % (Manual) 2, Platelet Estimate Normal, RBC Morphology Normal, ESR 26 H 02/06/21 04:21: Sodium 136, Potassium 3.9, Chloride 103, Carbon Dioxide 19 L, Anion Gap 17.9 H, BUN 24 H, Creatinine 1.50 H, Estimated Creat Clear 57, Estimated GFR 47 L, Est GFR ( Amer) 56 L, Glucose 102 H, Calcium 8.3 L, Total Bilirubin 0.7, AST 63 H, ALT 39, Alkaline Phosphatase 97, Troponin I 0.03, C-Reactive Protein 137.0 H, Total Protein 7.1, Albumin 3.7, Globulin 3.4 H, Albumin/Globulin Ratio 1.1, Procalcitonin 0.231 02/06/21 04:21: Magnesium 2.0, TSH 4.79 H, Thyroxine (T4) 8.1 02/06/21 04:29: Specimen Source Right radial, ABG pH 7.38, ABG pCO2 31.2 L, ABG pO2 61.6 L, ABG HCO3 18.1 L, ABG Total CO2 19.0 L, ABG O2 Saturation 92, ABG Base Excess -7.0 L, Gilberto Test Acceptable Result diagrams: 02/06/21 04:21 02/06/21 04:21 Orders (Tests/Meds): ED MEDICATIONS Generic Name Dose Route Start Last Admin Trade Name Freq PRN Reason Stop Dose Admin Sodium Chloride 1,000 mls @ 999 mls/hr 02/06/21 04:30 02/06/21 04:37 Sod Chlor 0.9% 1000ml Bag IV 02/06/21 05:30 999 mls/hr .Q1H1M NATASHA Administration Levofloxacin/Dextrose 750 mg in 150 mls @ 100 mls/hr 02/06/21 04:45 02/06/21 04:36 Levofloxacin 750mg/150ml Premix IV 02/20/21 04:44 100 mls/hr Q24H NATASHA Administration Discont
[2021-02-06 04:36] LABS: Basophils % 0.3 % (0.1-2.0); Hematocrit 44.9 % (42.0-52.0); Hemoglobin 14.9 g/dL (14.1-18.0); Lymphocytes # 0.5 K/mm3 (0.7-4.5); Lymphocytes % 6.8 % (10-50); Mean Corpuscular HGB Conc 33.1 g/dL (31.8-35.4); Mean Corpuscular Hemoglobin 30.5 pg (27.0-31.2); Mean Corpuscular Volume 92.1 fl (80-94); Mean Platelet Volume 9.8 fl (7.4-10.4); Monocytes # 0.3 K/mm3 (0.1-1.0); Monocytes % 3.5 % (1.7-9.3); Neutrophils # 6.5 K/mm3 (1.8-7.8); Neutrophils % 89.5 % (37.0-80.0); Platelet Count 140 K/mm3 (142-424); Red Blood Count 4.88 M/mm3 (4.60-6.20); Red Cell Distribution Width 13.8 % (11.5-17.5); White Blood Count 7.3 K/mm3 (4.8-10.8)
[2021-02-06 04:40] LABS: MANUAL DIFFERENTIAL MANUAL DIFFERENTIAL (MANUAL DIFF)
[2021-02-06 04:45] LABS: Alanine Aminotransferase 39 U/L (12-78); Albumin Level 3.7 g/dl (3.5-5.0); Albumin/Globulin Ratio 1.1 (1.1-1.8); Alkaline Phosphatase 97 U/L (38-126); Anion Gap 17.9 mEq/L (5-15); Aspartate Amino Transferase 63 U/L (17-59); Bilirubin,Total 0.7 mg/dl (0.2-1.3); Blood Urea Nitrogen 24 mg/dl (9-20); Calcium 8.3 mg/dl (8.4-10.2); Carbon Dioxide 19 mmol/L (22.0-30.0); Chloride 103 mmol/L (98-107); Creatinine Clearance Estimated 57 mL/min (50-200); Estimated Glomerular Filt Rate 47 ml/min (>60); GFR (African American) 56 ML/MIN (>60); Globulin 3.4 g/dL (1.3-3.2); Glucose 102 mg/dl (74-100); Potassium 3.9 mmoL/L (3.5-5.1); Sodium 136 mmol/L (136-145); Total Protein,Serum 7.1 g/dl (6.3-8.2)
[2021-02-06 04:53] LABS: ABG HCO3 18.1 mmhg (22.0-26.0); ABG Oxygen Saturation 92 % (90-100); ABG PCO2 31.2 mmhg (35.0-45.0); ABG PH 7.38 mmol/L (7.35-7.45); ABG PO2 61.6 mmhg (80-100)
[2021-02-06 04:56] LABS: Allen's Test Acceptable; Source Right Radial
[2021-02-06 04:59] LABS: Troponin I 0.03 ng/ml (0.00-0.034)
[2021-02-06 05:03] LABS: Procalcitonin 0.231 ng/mL (0.0-2.0)
[2021-02-06 05:06] LABS: Erythrocyte Sedimentation Rate 26 mm/hr (0-20)
[2021-02-06 05:30] LABS: T4 (Thyroxine) 8.1 ug/dl (5.53-11.0)
[2021-02-06 05:37] LABS: Lymphocytes % 2 % (10-50); Monocytes % 2 % (2-9); Neutrophils % 96 % (42-76); Platelet Estimate Normal; RBC Morphology Normal; Total Cells Counted 100
[2021-02-06 05:44] LABS: Thyroid Stimulating Hormone 4.79 uIU/mL (0.465-4.68)
--- NOTE | 2021-02-06 06:56 | PC.NURSE ---
Left message with Cem Villar to call back regarding resident.
[2021-02-06 07:33] LABS: Ferritin 1030 ng/ml (17.9-464)
--- NOTE | 2021-02-06 07:40 | PC.NURSE ---
CALLED [facility] THEY WILL ATTEMPT TO CONTACT SOMEONE AT [facility] FOR PT D/C
--- NOTE | 2021-02-06 07:51 | PC.NURSE ---
SPOKE WITH [facility] THEY ARE ATTEMPTING TO GET PT A RIDE BACK TO [facility]
--- NOTE | 2021-02-06 08:20 | PC.NURSE ---
PT REFUSING TO LEAVE. STATES I DON'T FEEL GOOD CALLED POLICE TO HELP PT D/C FROM DEPT
== END 2021-02-06 08:36 | disposition home or self-care (01) ==
PROVIDERS: Emergency Provider Emergency Medicine; PCP Emergency Medicine
DX: U07.1 COVID-19 (principal); I10 Essential (primary) hypertension; E78.5 Hyperlipidemia, unspecified; R56.9 Unspecified convulsions; D64.9 Anemia, unspecified
CPT/HCPCS: 71045; 80053; 82728; 82803; 83735; 84145; 84436; 84443; 84484; 85007; 85025; 85651; 86140; 93005; 96365; 96366; 96375; 99283; J1956

== ENCOUNTER 2021-02-11 12:31 | Inpatient (IN) | payer MEDICARE, OTHER, SELFPAY ==
[2021-02-11] VITALS (46 sets, daily range): BP systolic 88–225; BP diastolic 30–147; PULSE 66–116; RESP 20–35; TEMP 36.9–37.1; O2SAT 85–100; BMI 33.9
--- NOTE | 2021-02-11 12:54 | XR_ITS ---
PROCEDURE: XR CHEST PORTABLE CLINICAL HISTORY: sob, covid COMPARISON: CR XR CHEST 2V from 01/27/[address] ANGIO CHEST PE PROTOCOL from 01/27/2021 CR XR CHEST AP from 02/02/2021 CR XR CHEST PORTABLE from 02/06/2021 FINDINGS: The cardiomediastinal silhouette and pulmonary vascularity are within normal limits. There is worsening consolidation in the left mid and lower lung zone and right upper lobe and right perihilar region. There may be a trace left effusion. No evidence of pneumothorax. Small hiatal hernia. No acute bony abnormalities. IMPRESSION: Worsening bilateral multifocal pneumonia suspicious for Covid19 pneumonia Dictated by: Gilberto Cortes MD 02/11/2021 13:34 Gilberto Cortes MD in OV 02/11/2021 13:34
--- NOTE | 2021-02-11 12:55 | PC.NURSE ---
Placed pt on 40L 100% vapotherm with NRB overtop. Pt saturations are 90%
[2021-02-11 13:02] LABS: Basophils % 0.2 % (0.1-2.0); Eosinophils % 0.1 % (0.1-12.0); Hematocrit 45.2 % (42.0-52.0); Hemoglobin 14.9 g/dL (14.1-18.0); Lymphocytes # 0.4 K/mm3 (0.7-4.5); Mean Corpuscular HGB Conc 32.9 g/dL (31.8-35.4); Mean Corpuscular Hemoglobin 30.5 pg (27.0-31.2); Mean Corpuscular Volume 92.5 fl (80-94); Mean Platelet Volume 8.3 fl (7.4-10.4); Monocytes # 0.6 K/mm3 (0.1-1.0); Monocytes % 6.1 % (1.7-9.3); Neutrophils # 8.3 K/mm3 (1.8-7.8); Neutrophils % 89.7 % (37.0-80.0); Platelet Count 337 K/mm3 (142-424); Red Blood Count 4.89 M/mm3 (4.60-6.20); Red Cell Distribution Width 13.6 % (11.5-17.5); White Blood Count 9.3 K/mm3 (4.8-10.8)
[2021-02-11 13:04] LABS: MANUAL DIFFERENTIAL MANUAL DIFFERENTIAL (MANUAL DIFF)
[2021-02-11 13:19] LABS: Alanine Aminotransferase 126 U/L (12-78); Albumin Level 3.3 g/dl (3.5-5.0); Alkaline Phosphatase 116 U/L (38-126); Aspartate Amino Transferase 134 U/L (17-59); Bilirubin,Total 0.4 mg/dl (0.2-1.3); Blood Urea Nitrogen 33 mg/dl (9-20); Calcium 8.6 mg/dl (8.4-10.2); Carbon Dioxide 23 mmol/L (22.0-30.0); Chloride 108 mmol/L (98-107); Creatinine Clearance Estimated 79 mL/min (50-200); Estimated Glomerular Filt Rate 60 ml/min (>60); GFR (African American) 73 ML/MIN (>60); Globulin 3.3 g/dL (1.3-3.2); Glucose 194 mg/dl (74-100); Sodium 139 mmol/L (136-145); Total Protein,Serum 6.6 g/dl (6.3-8.2)
[2021-02-11 13:28] LABS: Lymphocytes % 6 % (10-50); Monocytes % 2 % (2-9); Neutrophils % 92 % (42-76); Platelet Estimate Normal; RBC Morphology Normal; Total Cells Counted 100
[2021-02-11 13:30] LABS: NT Pro Brain Natriuretic Pep. 375 pg/mL (0-125)
[2021-02-11 13:34] LABS: Troponin I < 0.01 ng/ml (0.00-0.034)
--- NOTE | 2021-02-11 14:22 | PC.NURSE ---
RT at BS for Dolly
--- NOTE | 2021-02-11 14:29 | HMH.ITSTN ---
PT NOT READY TO COME TO RADIOLOGY AT APPROX 1415; RESPIRATORY ON THEIR WAY TO EVALUATE PATIENT
[2021-02-11 14:31] LABS: ABG Base Excess -4.9 mmol/L (-2.4-2.3); ABG HCO3 19.3 mmhg (22.0-26.0); ABG Oxygen Saturation 92 % (90-100); ABG PH 7.44 mmol/L (7.35-7.45); ABG PO2 60.7 mmhg (80-100); ABG TCO2 20.1 mmhg (23-27)
[2021-02-11 14:33] LABS: Allen's Test ACCEPTABLE; Oxygen 100 %; Source R RADIAL
--- NOTE | 2021-02-11 14:51 | PC.NURSE ---
Gracie, RT states she sent blood gas results to Dr. Lee, states per Dr. Lee pt needs to be intubated relayed information to ER
--- NOTE | 2021-02-11 15:02 | ECG_ITS ---
APPROVED REPORT Exam: Resting ECG HR:85 bpm ECG Measurements Heart Rate 85 AXES FL 140 P 36 QRSd 88 QRS 17 QT 402 T 22 QTc 478 Conclusion Normal sinus rhythm Normal ECG Electronically signed by : Jayme Fregoso MD 02/11/2021 20:29:32
--- NOTE | 2021-02-11 15:19 | PC.NURSE ---
waiting b2b sales professional back from Dr. Lora
--- NOTE | 2021-02-11 15:21 | PC.NURSE ---
PT REFUSING INTUBATION. ATTEMPTED TO CALL PT'S BROTHER, NO ANSWER
--- NOTE | 2021-02-11 15:29 | PC.NURSE ---
Dr Cruz talking to Dr Lora about patient.
--- NOTE | 2021-02-11 16:06 | HMH.EDGENADL ---
ED Disposition Clinical Impression: COVID Disposition: Admitted As Inpatient Condition on Discharge: Fair Referrals: Shayne Lora MD [Primary Care Provider] - Time of Disposition: 16:14 - Critical Care Critical Care Time: No Attestation: On 02/11/21, the high probability of a clinically significant, sudden or life threatening deterioration of the following system(s) required my full and direct attention, intervention and personal management. The time I documented below is in addition to time spent performing reported procedures but includes the following listed in this critical care notation. Medical Decision Making - Medical Records Medical records reviewed: Yes: I reviewed the patient's medical records. - Arik Inquiry Pt receiving controlled substance: No Vital Signs: 02/11/21 12:32 02/11/21 13:00 02/11/21 13:30 Temperature 98.7 F Temperature Source Oral Pulse Rate 84 85 Pulse Rate [Radial] 91 H Respiratory Rate 32 H 32 H 28 H Blood Pressure 135/86 134/80 Blood Pressure [Right Radial Artery] 146/86 H Blood Pressure Mean 99 97 Blood Pressure Mean [Right Radial Artery] 106 Blood Pressure Position [Right Radial Artery] Sitting 02 Sat by Pulse Oximetry 85 L 90 L 88 L Oxygen Delivery Method Room Air 02/11/21 14:00 02/11/21 14:30 Temperature Temperature Source Pulse Rate 84 85 Pulse Rate [Radial] Respiratory Rate 32 H 30 H Blood Pressure 145/90 H 138/84 Blood Pressure [Right Radial Artery] Blood Pressure Mean 108 111 Blood Pressure Mean [Right Radial Artery] Blood Pressure Position [Right Radial Artery] 02 Sat by Pulse Oximetry 89 L 88 L Oxygen Delivery Method - Lab Data Lab results reviewed: Yes: I reviewed the patient's lab results. Lab Results 02/11/21 12:43: WBC 9.3, RBC 4.89, Hgb 14.9, Hct 45.2, MCV 92.5, MCH 30.5, MCHC 32.9, RDW 13.6, Plt Count 337, MPV 8.3, Neut % (Auto) 89.7 H, Lymph % (Auto) 4.0 L, Chester % (Auto) 6.1, Eos % (Auto) 0.1, Baso % (Auto) 0.2, Neut # (Auto) 8.3 H, Lymph # (Auto) 0.4 L, [place] # (Auto) 0.6, Eos # (Auto) 0.0, Baso # (Auto) 0.0, Total Counted 100, Neutrophils % (Manual) 92 H, Lymphocytes % (Manual) 6 L, Monocytes % (Manual) 2, Platelet Estimate Normal, RBC Morphology Normal 02/11/21 12:43: Sodium 139, Potassium 4.0, Chloride 108 H, Carbon Dioxide 23, Anion Gap 12.0, BUN 33 H, Creatinine 1.20, Estimated Creat Clear 79, Estimated GFR 60, Est GFR ( Amer) 73, Glucose 194 H, Calcium 8.6, Total Bilirubin 0.4, AST 134 H, ALT 126 H, Alkaline Phosphatase 116, Troponin I < 0.01, NT-Pro-B Natriuret Pep 375 H, Total Protein 6.6, Albumin 3.3 L, Globulin 3.3 H, Albumin/Globulin Ratio 1.0 L 02/11/21 13:32: Specimen Source R radial, O2 % 100, ABG pH 7.44, ABG pCO2 29.0 L, ABG pO2 60.7 L, ABG HCO3 19.3 L, ABG Total CO2 20.1 L, ABG O2 Saturation 92, ABG Base Excess -4.9 L, Gilberto Test Acceptable Result diagrams: 02/11/21 12:43 02/11/21 12:43 Orders (Tests/Meds): ED MEDICATIONS Generic Name Dose Route Start Last Admin Trade Name Freq PRN Reason Stop Dose Admin Propofol 100 mls @ 2.858 mls/hr 02/11/21 15:00 Diprivan 10mg/Ml 100ml Bottle IV 03/13/21 14:59 .Q25H NATASHA Protocol 5 MCG/KG/MIN ORDERS Category Date Time Status CTA Chest [CT angio chest PE protocol] Stat Cat Scan 02/11/21 14:03 Ordered Troponin I Q3H Lab 02/11/21 15:51 Received Blood Culture Stat Micro 02/11/21 12:43 Received - Radiology Data #1 Image(s): Chest Image Reviewed: Yes I reviewed the patient's radiology results Preliminary Findings: Abnormal Worsening bilateral multifocal pneumonia suspicious for Covid19 pneumonia - ECG Data Tracing #1 I reviewed this ECG and interpreted as documented below: Normal sinus rhythm, 85 bpm, no ST elevation or depression, no ectopy, normal intervals. ECG initial impression date: 09/15/21 ECG initial impression time: 15:02 Medical Decision Narrative: 70yo M evaluated for respirat
[2021-02-11 16:21] LABS: Troponin I < 0.01 ng/ml (0.00-0.034)
--- NOTE | 2021-02-11 16:44 | HMH.HP ---
*Admission Date: 02/11/21 *Chief complaint: sob *History of present illness: this patient with recent dx of covid-19 and was admitted a few weeks ago and has been seen in ed for eval a couple of times since has been having increased issues with resp status and po intake and was seen in the ed - o M presents the emergency department from [facility] secondary to shortness of breath. Patient is known Covid positive. He is satting in the low 80s on 15 L nonrebreather upon presentation via EMS. Patient started on Vapotherm and continued on nonrebreather as he is somewhat of a mouth breather. Patient only complaint is that he is thirsty. He denies any chest pain, nausea/vomit/diarrhea. pt was found to have increased resp failure and was admitted [facility] History I have reviewed the patient's past medical history: Yes Medical History: Reports:: Hyperlipidemia, Hypertension, Seizures Denies:: Cancer, Diabetes Mellitus Type 1, Diabetes Mellitus Type 2, Internal Pacemaker, MRSA *Have you ever received a pneumonia vaccine?: No *Have you received a flu vaccine this season?: No Other Medical History: Reports: Anemia, Thyroid Disease Other Surgeries: Yes: Appendectomy, Colonoscopy, Other. No: Pacemaker Amputation: No Fractures: No - *Social History Smoking Status: Never smoker Alcohol Intake: never *Occupational Status:: unemployed Housing: custodial Household Members: other *Travel in the last 8 weeks: None Family Hx:: No significant family history Review of Systems - Review of Systems Review of systems:: pertinent systems reviewed and negative unless documented below - Constitutional Reports weakness, Denies fever(s), Denies headache(s) - Eyes Denies change in vision - ENT Reports dry mouth - *Cardiovascular Denies chest pain with activity - *Respiratory Reports cough, Reports shortness of breath, Denies coughing up blood - *Gastrointestinal Denies abdominal pain - *Genitourinary Denies blood in urine - *Musculoskeletal Denies joint pain, Denies neck pain - Integumentary/Breasts Denies rash - *Neurologic Denies seizure-like activity, Denies tingling/numbness/burning sensations - Psychiatric Reports anxiety Meds Home Medications Medication Instructions Recorded Confirmed Type Levothyroxine Sodium 50 mcg PO DAILY 01/11/19 02/06/21 History [Levothyroxine 50mcg (0.05mg) Tab] OLANZapine [Zyprexa] 20 mg PO DAILY 01/11/19 02/06/21 History [place]-3S/Dha/Epa/Fish Oil [Fish 1 each PO TID 01/11/19 02/06/[address] 1,000 mg Softgel] Simvastatin 20 mg PO DAILY 01/11/19 02/06/21 History buPROPion HCL [Wellbutrin XL] 150 mg PO DAILY 01/11/19 02/06/21 History ibuprofen 800 mg tablet 800 mg PO Q8H PRN 01/14/20 02/06/21 History sertraline 100 mg tablet 200 mg PO DAILY tab 01/14/20 02/06/21 History Fluconazole [Diflucan 100mg tablet] 100 mg PO DAILY 01/28/21 02/06/21 History Loperamide HCl [Anti-Diarrheal] 2 mg PO Q4-6H PRN 01/28/21 02/06/21 History Pantoprazole Sodium [Protonix 40mg 40 mg PO DAILY 01/28/21 02/06/21 History tablet] ondansetron HCL [Zofran 4mg Tab*] 4 mg PO Q4-6H PRN 01/28/21 02/06/21 History levoFLOXacin [Levaquin 500mg 500 mg PO DAILY #7 tab 02/06/21 Rx tab] predniSONE [Prednisone 20mg 20 mg PO BID #10 tab 02/06/21 Rx Tab] Allergies Allergy/AdvReac Type Severity Reaction Status Date / Time haloperidol [HALOPERIDOL] Allergy Mild Verified 11/14/20 10:48 Penicillins [PENICILLINS] Allergy Mild Verified 11/14/20 10:48 Exam Vital signs and Labs for Last 24 Hours: Temp Pulse Resp BP Pulse Ox 98.7 F 85 30 H 138/84 88 L 02/11/21 12:32 02/11/21 14:30 02/11/21 14:30 02/11/21 14:30 02/11/21 14:30 Laboratory Results - last 24 hr 02/11/21 12:43: WBC 9.3, RBC 4.89, Hgb 14.9, Hct 45.2, MCV 92.5, MCH 30.5, MCHC 32.9, RDW 13.6, Plt Count 337, MPV 8.3, Neut % (Auto) 89.7 H, Lymph % (Auto) 4.0 L, Elliott % (Auto) 6.1, Eos % (Auto) 0.1, Baso % (Auto) 0.2,
[2021-02-11 18:41] LABS: Lactic Acid 2.1 mmol/L (0.7-2.1)
--- NOTE | 2021-02-11 18:41 | PC.NURSE ---
ATTEMPTED TO CALL REPORT. FLOOR WILL CALL BACK
--- NOTE | 2021-02-11 19:24 | HMH.ITSTN ---
TALKED TO JENNIFER JOHNSTON PT STILL TOO UNSTABLE TO GO TO CT
--- NOTE | 2021-02-11 20:00 | XR_ITS ---
PROCEDURE INFORMATION: Exam: XR Chest Exam date and time: 02/11/2021 8:00 PM Age: 70 years old Clinical indication: Device placement; Ett placement (vent status); Additional info: Post intubation, confirm placement TECHNIQUE: Imaging protocol: XR of the chest. Views: 1 view. COMPARISON: CR XR CHEST PORTABLE 02/11/2021 1:05 PM FINDINGS: Tubes, catheters and devices: ET tube overlying the lower trachea projecting towards the right mainstem bronchus within 5 mm of the chester. Lungs: Opacity overlying the left mid lung and right upper lung. Pleural spaces: No pneumothorax. Heart/Mediastinum: No cardiomegaly. Bones/joints: No acute abnormality. Other findings: IMPRESSION: 1. ET tube overlying the lower trachea projecting towards the right mainstem bronchus within 5 mm of the chester. Recommend retraction several cm for more optimal placement. 2. Opacity overlying the left mid lung and right upper lung which is mildly progressive from prior examination.
--- NOTE | 2021-02-11 20:00 | HMH.PROC ---
[facility] Procedure Note Procedure Note:: Nursing found the patient sitting up working harder to breathe with poor color. The patient stated he wished to be intubated at this time. Respiratory was called to the emergency department. Intubation was completed using etomidate 30 mg IV, rocuronium 100 mg IV. 7.5 tube passed using the glide scope. Direct visualization. Bilateral chest sounds auscultated. Patient tolerated procedure well. Confirmatory chest x-ray was obtained and showed good placement of the ETT.
--- NOTE | 2021-02-11 20:03 | PC.NURSE ---
~1940 pt consents for intubation. Respiratory notified. RSI kit obtained for Dr. Cruz. He administered Etomidote 30mg and Rocuronium 100mg IVP.
--- NOTE | 2021-02-11 20:44 | PC.NURSE ---
ET placed per Dr. Cruz to 25cm at lip. Per Dr. Keane, pull ET tube back 2 cm, RT complied and new position 23cm lip
--- NOTE | 2021-02-11 20:48 | PC.NURSE ---
D/t change in pt's condition and now intubated, pt willl be boarding in ER at this time. Belonging collected, mcgill cath placed. rectl temp obtained (98.9), pt placed in gown. RT moved ET tube to Left side of mouth. Bit guard in place. At this time, propofol increased to 10mcg for sedation requirements.
[2021-02-11 21:09] LABS: ABG Base Excess -4.4 mmol/L (-2.4-2.3); ABG HCO3 19.9 mmhg (22.0-26.0); ABG Oxygen Saturation 99 % (90-100); ABG PCO2 30.5 mmhg (35.0-45.0); ABG PH 7.43 mmol/L (7.35-7.45); ABG PO2 182.7 mmhg (80-100); ABG TCO2 20.8 mmhg (23-27)
[2021-02-11 21:13] LABS: Oxygen 100 %; PEEP 14; Tidal Volume 440; Vent Rate 24
[2021-02-11 21:14] LABS: Allen's Test Non Applicable; Source Right Radial
[2021-02-11 21:50] LABS: Microscopic, Urine URINE MICROSCOPIC (MICROSCOPIC)
--- NOTE | 2021-02-11 21:54 | PC.NURSE ---
paged Dr. Nieves at this time to discuss pt's hyportension. Per Dr. Keane, he stated to contact pt's admitting on-call md for any orders or status changes.
[2021-02-11 21:56] LABS: Appearance,Urine CLEAR (Clear); Bilirubin,Urine Negative (Negative); Blood, Urine Negative (Negative); Color,Urine YELLOW (Yellow); Glucose,Urine (UA) Negative (Negative); Ketones,Urine Negative (Negative); Leukocyte Esterase,Urine Negative (Negative); Nitrate,Urine Negative (Negative); Protein,Urine Negative (Negative); Specific Gravity, Urine 1.025 (1.005-1.030); Urobilinogen,Urine 0.2 EU/dl (0.2)
[2021-02-11 22:03] LABS: Bacteria,Urine Trace /lpf; WBC,Urine Occasional #/hpf (0-3)
[2021-02-11 22:25] LABS: Reflex Lactic Add Lactic Reflex
--- NOTE | 2021-02-11 22:30 | PC.NURSE ---
s/w Dr. Nieves @[id number]. New order for Levophed (Norepinepherine) gtt and titrate to keep MAP > 65
--- NOTE | 2021-02-11 22:39 | PC.NURSE ---
Late Entry: RT has pt on the following vent settings: FiO2 100%, RR 24, TV 440, Peep 14 on A/C mode. Mendoza emptied at this time, 200ml output
--- NOTE | 2021-02-11 23:17 | HMH.ITSTN ---
per RN Teresa, Ct still on hold at this time
[2021-02-11 23:53] LABS: Lactic Acid Follow Up (RFLX 1) 2.3 mmol/L (0.7-2.1)
[2021-02-12] VITALS (50 sets, daily range): BP systolic 95–150; BP diastolic 60–83; PULSE 50–79; RESP 20–27; TEMP 35.8–37.5; O2SAT 93–100
[2021-02-12 01:18] LABS: Reflex Lactic (2 hrs) Add Lactic Reflex
[2021-02-12 01:54] LABS: Lactic Acid Follow up (RFLX 2) 1.1 mmol/L (0.7-2.1)
--- NOTE | 2021-02-12 04:47 | XR_ITS ---
PROCEDURE INFORMATION: Exam: XR Chest Exam date and time: 02/12/2021 4:47 AM Age: 70 years old Clinical indication: Device placement; Ng tube; Patient HX: Covid; Additional info: Ng placement TECHNIQUE: Imaging protocol: XR of the chest. Views: 1 view. COMPARISON: CR XR CHEST PORTABLE 02/11/2021 8:02 PM FINDINGS: Tubes, catheters and devices: There is an endotracheal tube in place, the tip which projects 3.4 cm above the chester. Nasogastric tube traverses the esophagus and terminates in the stomach. Lungs: There is some ill-defined airspace opacity in the right hilum and in the right upper lobe. Patchy airspace opacity in the left lower lobe. Pleural spaces: Unremarkable. No pleural effusion. No pneumothorax. Heart/Mediastinum: Unremarkable. No cardiomegaly. Bones/joints: Unremarkable. IMPRESSION: 1. Satisfactory position of endotracheal tube, the tip of which projects 3.4 cm above the chester. 2. Patchy airspace opacity in both lungs as described.
[2021-02-12 05:14] LABS: Basophils % 0.2 % (0.1-2.0); Eosinophils % 0.5 % (0.1-12.0); Hematocrit 39.9 % (42.0-52.0); Lymphocytes # 0.5 K/mm3 (0.7-4.5); Lymphocytes % 7.5 % (10-50); Mean Corpuscular HGB Conc 33.2 g/dL (31.8-35.4); Mean Corpuscular Hemoglobin 30.7 pg (27.0-31.2); Mean Corpuscular Volume 92.6 fl (80-94); Monocytes # 0.4 K/mm3 (0.1-1.0); Monocytes % 5.3 % (1.7-9.3); Neutrophils # 6.2 K/mm3 (1.8-7.8); Neutrophils % 86.5 % (37.0-80.0); Platelet Count 316 K/mm3 (142-424); Red Blood Count 4.31 M/mm3 (4.60-6.20); Red Cell Distribution Width 13.8 % (11.5-17.5); White Blood Count 7.1 K/mm3 (4.8-10.8)
[2021-02-12 05:25] LABS: MANUAL DIFFERENTIAL MANUAL DIFFERENTIAL (MANUAL DIFF)
[2021-02-12 05:29] LABS: Hemoglobin 13.3 g/dL (14.1-18.0)
[2021-02-12 05:40] LABS: Anion Gap 8.9 mEq/L (5-15); Blood Urea Nitrogen 26 mg/dl (9-20); Calcium 7.8 mg/dl (8.4-10.2); Carbon Dioxide 22 mmol/L (22.0-30.0); Chloride 111 mmol/L (98-107); Creatinine Clearance Estimated 87 mL/min (50-200); Estimated Glomerular Filt Rate 67 ml/min (>60); GFR (African American) 81 ML/MIN (>60); Glucose 119 mg/dl (74-100); Magnesium 1.9 mg/dl (1.6-2.3); Potassium 3.9 mmoL/L (3.5-5.1); Sodium 138 mmol/L (136-145)
[2021-02-12 06:32] LABS: Lymphocytes % 9 % (10-50); Monocytes % 3 % (2-9); Neutrophils % 88 % (42-76); Nucleated Red Blood Cells 1; Total Cells Counted 100
[2021-02-12 06:33] LABS: Hypochromasia 1+; Platelet Estimate Normal
--- NOTE | 2021-02-12 07:11 | PC.NURSE ---
Levophed was not needed to be started this shift, will continue to monitor need. Partial bath, bed changed this shift. Pt did have a temp (102.7 rectal), Tylenol was administered per rectum and recheck temp was 100.1 on reassessment. Propofol has been titrated and currently running at 30mcg.
[2021-02-12 08:04] LABS: ABG Base Excess -2.7 mmol/L (-2.4-2.3); ABG HCO3 21.3 mmhg (22.0-26.0); ABG Oxygen Saturation 96 % (90-100); ABG PCO2 31.6 mmhg (35.0-45.0); ABG PH 7.45 mmol/L (7.35-7.45); ABG PO2 80.2 mmhg (80-100); ABG TCO2 22.3 mmhg (23-27)
[2021-02-12 08:05] LABS: Allen's Test Patient Unable; Oxygen 100 %; PEEP 14; Source Right Radial; Tidal Volume 440; Vent Rate 24
--- NOTE | 2021-02-12 08:24 | PC.NURSE ---
propofol drip started
--- NOTE | 2021-02-12 10:12 | HMH.PULMCON ---
*Admission Date: 02/11/21 *Reason for consult:: Acute hypoxic respiratory failure, COVID-19 pneumonia *History of present illness: Patient intubated and sedated much of the history is obtained from chart review. Mr. Macias is a 70-year-old male recently admitted to the hospital and discharged after diagnosed with COVID-19 pneumonia presented to the hospital worsening respiratory failure initially needing high flow nasal eventual escalate intubation and mechanical ventilation to maintain adequate oxygen saturations and pulmonary was called for further management. [facility] History Medical History: Reports:: Hyperlipidemia, Hypertension, Seizures Denies:: Cancer, Diabetes Mellitus Type 1, Diabetes Mellitus Type 2, Internal Pacemaker, MRSA *Have you ever received a pneumonia vaccine?: No *Have you received a flu vaccine this season?: No Other Medical History: Reports: Anemia, Thyroid Disease Other Surgeries: Yes: Appendectomy, Colonoscopy, Other. No: Pacemaker Amputation: No Fractures: No - *Social History Smoking Status: Never smoker Alcohol Intake: never *Occupational Status:: unemployed Housing: residential Household Members: other *Travel in the last 8 weeks: None Family Hx:: No significant family history ROS - Review of Systems Unable to obtain as patient was intubated and sedated Meds Home Medications Medication Instructions Recorded Confirmed Type Levothyroxine Sodium 50 mcg PO DAILY 01/11/19 02/11/21 History [Levothyroxine 50mcg (0.05mg) Tab] OLANZapine [Zyprexa] 20 mg PO DAILY 01/11/19 02/11/21 History [place]-3S/Dha/Epa/Fish Oil [Fish 1 each PO TID 01/11/19 02/11/[address] 1,000 mg Softgel] Simvastatin 20 mg PO HS 01/11/19 02/12/21 History buPROPion HCL [Wellbutrin XL] 150 mg PO DAILY 01/11/19 02/11/21 History ibuprofen 800 mg tablet 800 mg PO Q8HP PRN 01/14/20 02/12/21 History sertraline 100 mg tablet 200 mg PO DAILY tab 01/14/20 02/11/21 History Fluconazole [Diflucan 100mg tablet] 100 mg PO DAILY 01/28/21 02/11/21 History Loperamide HCl [Anti-Diarrheal] 2 mg PO Q4HP PRN 01/28/21 02/12/21 History Pantoprazole Sodium [Protonix 40mg 40 mg PO DAILY 01/28/21 02/11/21 History tablet] ondansetron HCL [Zofran 4mg Tab*] 4 mg PO Q4-6H PRN 01/28/21 02/11/21 History Allergies Allergy/AdvReac Type Severity Reaction Status Date / Time haloperidol [HALOPERIDOL] Allergy Mild Verified 11/14/20 10:48 Penicillins [PENICILLINS] Allergy Mild Verified 11/14/20 10:48 Exam - Constitutional Constitutional:: Absent: no acute distress, comfortable - HENMT Exam HENMT: Present: normocephalic - Eye Exam Eyes:: Present: normal appearance both eyes and related structures - Neck Exam Neck:: Present: normal visual inspection - Respiratory Exam Respiratory:: Present: respiratory distress, wheezing - Cardiovascular Exam Cardiac:: Present: S1, S2 - GI Exam GI:: Present: soft - Skin Exam Skin: Present: warm, no rash - Neurological Exam Intubated and sedated - Extremities Exam Extremities: Present: no cyanosis, no clubbing, no edema Internal Medicine - CN: Reslt - Labs CBC & Chem 7: 02/12/21 05:08 02/12/21 05:08 Labs: Short CBC 02/11/21 02/12/21 Range/Units 12:43 05:08 WBC 9.3 7.1 (4.8-10.8) K/mm3 Hgb 14.9 13.3 L D (14.1-18.0) g/dL Hct 45.2 39.9 L (42.0-52.0) % Plt Count 337 316 (142-424) K/mm3 [facility] 02/11/21 02/12/21 12:43 05:08 Sodium 139 138 Potassium 4.0 3.9 Chloride 108 H 111 H Carbon Dioxide 23 22 BUN 33 H 26 H Creatinine 1.20 1.10 Glucose 194 H 119 H D Calcium 8.6 7.8 L Cardiac Enzymes 02/11/21 02/11/21 Range/Units 12:43 15:51 Troponin I < 0.01 < 0.01 (0.00-0.034) ng/ml Liver Function 02/11/21 Range/Units 12:43 Total Bilirubin 0.4 (0.2-1.3) mg/dl AST 134 H (17-59) U/L ALT 126 H (12-78) U/L Alkaline Phosphatase 116 (38-126) U/L Albumin 3.3 L (3.5-5.0) g/dl Urine 02/11/21 Ra
--- NOTE | 2021-02-12 10:17 | CA_ITS ---
APPROVED REPORT Bilateral Lower Extremity Venous Study for DVT. Rig Operator: Jorge A RCS, RVS Indications Covid-19, Hypoxia, Pneumonia, Respiratory failure Vein Imaging CFV (R): compressive, spontaneous, phasic, augmentation SFJ (R): compressive, spontaneous, phasic, augmentation FEM (R): compressive, spontaneous, phasic, augmentation POP (R): compressive, spontaneous, phasic, augmentation DFV (R): compressive, spontaneous, phasic, augmentation PTV (R): compressive, spontaneous, phasic, augmentation GSV (R): compressive, spontaneous, phasic, augmentation SSV (R): compressive, spontaneous, phasic, augmentation Peroneals (R):compressive, spontaneous, phasic, augmentation GAS (R): compressive, spontaneous, phasic, augmentation CFV (L): compressive, spontaneous, phasic, augmentation SFJ (L): compressive, spontaneous, phasic, augmentation FEM (L): compressive, spontaneous, phasic, augmentation POP (L): compressive, spontaneous, phasic, augmentation DFV (L): compressive, spontaneous, phasic, augmentation PTV (L): compressive, spontaneous, phasic, augmentation GSV (L): compressive, spontaneous, phasic, augmentation SSV (L): compressive, spontaneous, phasic, augmentation Peroneals (L):compressive, spontaneous, phasic, augmentation GAS (L): compressive, spontaneous, phasic, augmentation Findings Color flow duplex demonstrates no evidence of DVT of the following bilateral lower extremity Veins:Common Femoral Vein, Femoral Vein, Popliteal Vein, Posterior Tibial Veins, Peroneal Veins, Deep Femoral Vein. Slow flow observed in the Right CFV. Negative for DVT at this time. Conclusion Negative for DVT at this time. Electronically signed by : Gilberto Cortes MD 02/12/2021 15:58:15
--- NOTE | 2021-02-12 10:54 | HMH.PHAINT ---
MEDICATION RECONCILIATION COMPLETED ON PATIENT USING DISCHARGE SUMMARY FROM PATIENT'S PREVIOUS ADMISSION. -MILAGROS HERNANDEZ, ANAD
--- NOTE | 2021-02-12 10:55 | P.CONPHA_ITS ---
[facility] Pharmacy VTE Monitoring - Patient Demographics Admission date: 02/12/21 Report Date: 02/12/21 Time: 10:55 Allergies/Adverse Reactions: Patient Allergies haloperidol [HALOPERIDOL] Allergy (Mild, Verified 11/14/20 10:48) Penicillins [PENICILLINS] Allergy (Mild, Verified 11/14/20 10:48) Height: 1.68 m Weight: 95.254 kg Patient Problems: Current Active Problems Hypothyroidism (Acute) Obesity (BMI 30-39.9) (Acute) COVID (Acute) COVID-19 with pulmonary comorbidity (Acute) Acute respiratory failure due to COVID-19 (Acute) - VTE Risk Labs: VTE Related Lab Results Hgb 13.3 g/dL (14.1-18.0) L D 02/12/21 05:08 Hct 39.9 % (42.0-52.0) L 02/12/21 05:08 Plt Count 316 K/mm3 (142-424) 02/12/21 05:08 BUN 26 mg/dl (9-20) H 02/12/21 05:08 Creatinine 1.10 mg/dl (0.66-1.25) 02/12/21 05:08 Estimated Creat Clear 87 mL/min (50-200) 02/12/21 05:08 - Prophylaxis VTE Prophylaxis Ordered?: Yes Types of VTE Prophylaxis: TEDS Knee High, Pharmacological Location of Applied Device: Bilateral Lower Extremeties Pharmacologic Type: Enoxaparin
--- NOTE | 2021-02-12 13:00 | PC.NURSE ---
pt turned to rt side
--- NOTE | 2021-02-12 15:41 | HMH.PHACONS ---
- Pharmacy Consult Date: 02/12/21 Time: 15:41 Referring provider: DR. KURTZ Reason for Consult:: VANCOMYCIN DOSING Allergies and ADEs:: Allergies Allergy/AdvReac Type Severity Reaction Status Date / Time haloperidol [HALOPERIDOL] Allergy Mild Verified 11/14/20 10:48 Penicillins [PENICILLINS] Allergy Mild Verified 11/14/20 10:48 Home Medications:: Home Medications Medication Instructions Recorded Confirmed Type Levothyroxine Sodium 50 mcg PO DAILY 01/11/19 02/11/21 History [Levothyroxine 50mcg (0.05mg) Tab] OLANZapine [Zyprexa] 20 mg PO DAILY 01/11/19 02/11/21 History [place]-3S/Dha/Epa/Fish Oil [Fish 1 each PO TID 01/11/19 02/11/[address] 1,000 mg Softgel] Simvastatin 20 mg PO HS 01/11/19 02/12/21 History buPROPion HCL [Wellbutrin XL] 150 mg PO DAILY 01/11/19 02/11/21 History ibuprofen 800 mg tablet 800 mg PO Q8HP PRN 01/14/20 02/12/21 History sertraline 100 mg tablet 200 mg PO DAILY tab 01/14/20 02/11/21 History Fluconazole [Diflucan 100mg tablet] 100 mg PO DAILY 01/28/21 02/11/21 History Loperamide HCl [Anti-Diarrheal] 2 mg PO Q4HP PRN 01/28/21 02/12/21 History Pantoprazole Sodium [Protonix 40mg 40 mg PO DAILY 01/28/21 02/11/21 History tablet] ondansetron HCL [Zofran 4mg Tab*] 4 mg PO Q4-6H PRN 01/28/21 02/11/21 History Height: 1.68 m Weight: 95.254 kg Laboratory Results:: Laboratory Results - last 24 hr 02/11/21 15:51: Troponin I < 0.01 02/11/21 18:00: Lactate 2.1 02/11/21 20:35: Urine Color Yellow, Urine Appearance Clear, Urine pH 6.0, Ur Specific [place] 1.025, Urine Protein Negative, Urine Glucose (UA) Negative, Urine Ketones Negative, Urine Blood Negative, Urine Nitrate Negative, Urine Bilirubin Negative, Urine Urobilinogen 0.2, Ur Leukocyte Esterase Negative, Urine WBC Occasional, Urine Bacteria Trace 02/11/21 21:05: Specimen Source Right radial, O2 % 100, ABG pH 7.43, ABG pCO2 30.5 L, ABG pO2 182.7 H, ABG HCO3 19.9 L, ABG Total CO2 20.8 L, ABG O2 Saturation 99, ABG Base Excess -4.4 L, Gilberto Test Non applicable, Vent Rate 24, Tidal Volume 440, PEEP 14 02/11/21 23:05: Lactate 2.3 H 02/12/21 01:35: Lactate 1.1 02/12/21 05:08: WBC 7.1, RBC 4.31 L, Hgb 13.3 L D, Hct 39.9 L, MCV 92.6, MCH 30.7, MCHC 33.2, RDW 13.8, Plt Count 316, MPV 8.0, Neut % (Auto) 86.5 H, Lymph % (Auto) 7.5 L, [place] % (Auto) 5.3, Eos % (Auto) 0.5, Baso % (Auto) 0.2, Neut # (Auto) 6.2, Lymph # (Auto) 0.5 L, [place] # (Auto) 0.4, Eos # (Auto) 0.0, Baso # (Auto) 0.0, Total Counted 100, Neutrophils % (Manual) 88 H, Lymphocytes % (Manual) 9 L, Monocytes % (Manual) 3, Nucleated RBCs 1, Platelet Estimate Normal, RBC Morphology Not Reportable, Hypochromasia 1+ 02/12/21 05:08: Sodium 138, Potassium 3.9, Chloride 111 H, Carbon Dioxide 22, Anion Gap 8.9, BUN 26 H, Creatinine 1.10, Estimated Creat Clear 87, Estimated GFR 67, Est GFR ( Amer) 81, Glucose 119 H D, Calcium 7.8 L, Magnesium 1.9 02/12/21 07:51: Specimen Source Right radial, O2 % 100, ABG pH 7.45, ABG pCO2 31.6 L, ABG pO2 80.2, ABG HCO3 21.3 L, ABG Total CO2 22.3 L, ABG O2 Saturation 96, ABG Base Excess -2.7 L, Gilberto Test Patient unable, Vent Rate 24, Tidal Volume 440, PEEP 14 Medical History: Reports:: Hyperlipidemia, Hypertension, Seizures Denies:: Cancer, Diabetes Mellitus Type 1, Diabetes Mellitus Type 2, Internal Pacemaker, MRSA Assessment and Plan (1) COVID-19 with pulmonary comorbidity Status: Acute Category: Medical Code(s): U07.1 - COVID-19; J98.4 - Other disorders of lung (2) Obesity (BMI 30-39.9) Status: Acute Category: Medical Code(s): E66.9 - Obesity, unspecified (3) Acute respiratory failure due to COVID-19 Status: Acute Category: Medical Code(s): U07.1 - COVID-19; J96.00 - Acute respiratory failure, unspecified whether with hypoxia or hypercapnia (4) Hypothyroidism Status: Acute Qualifiers: Hypothyroidism type: acquired Qualified Code(s): E03.9 - Hypothyroidism, unspecified Category: Medical Code(s): E03.9 - Hypothyroidi
--- NOTE | 2021-02-12 16:17 | PC.NURSE ---
Went in to assess patient and Diprivan bottle was finishing. Pt was beginning to arouse. 2nd bottle of Dipirvan hung at this time with no issues.
--- NOTE | 2021-02-12 16:18 | PC.NURSE ---
report called to stasrn in icu at this time
--- NOTE | 2021-02-12 18:17 | PC.NURSE ---
received call from the lab ([facility]) reporting the following: anaroebic staph and gram positive cocci. Name and verified. Dr. Becker made aware.
[2021-02-12 18:29] LABS: D-Dimer 1.49 ug/mL (0.0-0.5)
[2021-02-12 19:43] LABS: Ferritin 1430 ng/ml (17.9-464)
--- NOTE | 2021-02-12 19:56 | HMH.ACPN2 ---
Internal Medicine - PN: Subj *Date: 02/12/21 *Time: 20:15 Interval history: Patient is intubated and sedated. Regimen includes dipper Van and no. NG is present, as well as a Mendoza. He is actively followed by the pulmonary service. Exam Vital signs and Labs for Last 24 Hours: Temp Pulse Resp BP Pulse Ox 99 F 58 L 22 99/65 L 98 02/12/21 17:29 02/12/21 19:00 02/12/21 19:00 02/12/21 19:00 02/12/21 19:00 Laboratory Results - last 24 hr 02/11/21 20:35: Urine Color Yellow, Urine Appearance Clear, Urine pH 6.0, Ur Specific [place] 1.025, Urine Protein Negative, Urine Glucose (UA) Negative, Urine Ketones Negative, Urine Blood Negative, Urine Nitrate Negative, Urine Bilirubin Negative, Urine Urobilinogen 0.2, Ur Leukocyte Esterase Negative, Urine WBC Occasional, Urine Bacteria Trace 02/11/21 21:05: Specimen Source Right radial, O2 % 100, ABG pH 7.43, ABG pCO2 30.5 L, ABG pO2 182.7 H, ABG HCO3 19.9 L, ABG Total CO2 20.8 L, ABG O2 Saturation 99, ABG Base Excess -4.4 L, Gilberto Test Non applicable, Vent Rate 24, Tidal Volume 440, PEEP 14 02/11/21 23:05: Lactate 2.3 H 02/12/21 01:35: Lactate 1.1 02/12/21 05:08: WBC 7.1, RBC 4.31 L, Hgb 13.3 L D, Hct 39.9 L, MCV 92.6, MCH 30.7, MCHC 33.2, RDW 13.8, Plt Count 316, MPV 8.0, Neut % (Auto) 86.5 H, Lymph % (Auto) 7.5 L, [place] % (Auto) 5.3, Eos % (Auto) 0.5, Baso % (Auto) 0.2, Neut # (Auto) 6.2, Lymph # (Auto) 0.5 L, [place] # (Auto) 0.4, Eos # (Auto) 0.0, Baso # (Auto) 0.0, Total Counted 100, Neutrophils % (Manual) 88 H, Lymphocytes % (Manual) 9 L, Monocytes % (Manual) 3, Nucleated RBCs 1, Platelet Estimate Normal, RBC Morphology Not Reportable, Hypochromasia 1+ 02/12/21 05:08: Sodium 138, Potassium 3.9, Chloride 111 H, Carbon Dioxide 22, Anion Gap 8.9, BUN 26 H, Creatinine 1.10, Estimated Creat Clear 87, Estimated GFR 67, Est GFR ( Amer) 81, Glucose 119 H D, Calcium 7.8 L, Magnesium 1.9 02/12/21 07:51: Specimen Source Right radial, O2 % 100, ABG pH 7.45, ABG pCO2 31.6 L, ABG pO2 80.2, ABG HCO3 21.3 L, ABG Total CO2 22.3 L, ABG O2 Saturation 96, ABG Base Excess -2.7 L, Gilberto Test Patient unable, Vent Rate 24, Tidal Volume 440, PEEP 14 02/12/21 17:55: D-Dimer 1.49 H 02/12/21 17:55: Ferritin 1430 H D, C-Reactive Protein 230.0 H I & O for Last 24 hours: Intake & Output 02/09/21 02/10/21 02/11/21 02/12/21 23:59 23:59 23:59 23:59 Intake Total 1017 / 1017 461 / 461 Output Total 200 / 200 823 / 823 Balance 817 / 817 -362 / -362 Weight 210 lb Microbiology Reports for the Last 24 Hours: Microbiology 02/11/21 20:35 Sputum - Endotracheal Tube Aspirate Gram Stain - Final - Constitutional no acute distress - *Routine HEENT Exam Head: Present: normocephalic Eye: Absent: periorbital ecchymosis ENT: Present: mucous membranes moist - *Routine Neck Exam Present: supple. Absent: lymphadenopathy - *Routine Respiratory Exam Present: patient mechanically ventilated - *Routine Cardiovascular Exam Present: RRR - *Routine Abdominal Exam Present: soft, normoactive bowel sounds. Absent: tenderness - *Routine Extremities Exam Absent: cyanosis, clubbing, edema - *Routine Skin Exam Present: warm. Absent: rash - *Routine Neurological Exam Present: altered mental status. Absent: alert, oriented X3 Assessment and Plan (1) COVID-19 with pulmonary comorbidity Status: Acute Category: Medical Code(s): U07.1 - COVID-19; J98.4 - Other disorders of lung (2) Obesity (BMI 30-39.9) Status: Acute Category: Medical Code(s): E66.9 - Obesity, unspecified (3) Acute respiratory failure due to COVID-19 Status: Acute Category: Medical Code(s): U07.1 - COVID-19; J96.00 - Acute respiratory failure, unspecified whether with hypoxia or hypercapnia (4) Hypothyroidism Status: Acute Qualifiers: Hypothyroidism type: acquired Qualified Code(s): E03.9 - Hypothyroidism, unspecified Category: Medical Code(s): E03.9 - Hypothyroidism, unspecified
[2021-02-13] VITALS (33 sets, daily range): BP systolic 92–137; BP diastolic 59–84; PULSE 50–70; RESP 22–26; TEMP 35.6–36.6; O2SAT 86–98; BMI 32.6; BMI 32.5
--- NOTE | 2021-02-13 04:18 | PC.NURSE ---
Pt has been bradycardic at times this shift. Pt desat after repositioning and turning on side. Pt currently on Propofol @ 50mcg/kg/min. Fentanyl @ 50 mcg/hr. NS @ 125. Vent settings: AC, FiO2 100%, R 22, TV 440, Peep 14.
--- NOTE | 2021-02-13 06:00 | XR_ITS ---
PROCEDURE INFORMATION: Exam: XR Chest Exam date and time: 02/13/2021 6:00 AM Age: 70 years old Clinical indication: Device placement; Ett placement (vent status); Patient HX: Covid; Additional info: Intubation TECHNIQUE: Imaging protocol: XR of the chest. Views: 1 view. COMPARISON: CR XR CHEST PORTABLE 02/12/2021 4:51 AM FINDINGS: Tubes, catheters and devices: Endotracheal tube tip is 4.4 cm from the chester. Enteric tube extends into the left upper quadrant with the tip extending up the inferior aspect of the study. Lungs: Patchy bilateral airspace disease similar to the prior exam consistent with pneumonia. Pleural spaces: Small left-sided pleural effusion. Heart/Mediastinum: No acute findings or cardiomegaly. Bones/joints: No acute findings. IMPRESSION: 1. Patchy bilateral airspace disease similar to the prior exam. 2. Endotracheal tube tip 4.4 cm from chester. 3. Small left-sided effusion.
[2021-02-13 06:45] LABS: POC Glucose,Bedside 73 (70-110)
[2021-02-13 07:03] LABS: Basophils % 0.2 % (0.1-2.0); Eosinophils % 0.6 % (0.1-12.0); Hematocrit 37.7 % (42.0-52.0); Lymphocytes # 0.7 K/mm3 (0.7-4.5); Lymphocytes % 9.4 % (10-50); Mean Corpuscular HGB Conc 34.4 g/dL (31.8-35.4); Mean Corpuscular Hemoglobin 32.6 pg (27.0-31.2); Mean Corpuscular Volume 94.6 fl (80-94); Mean Platelet Volume 8.7 fl (7.4-10.4); Monocytes # 0.8 K/mm3 (0.1-1.0); Monocytes % 10.7 % (1.7-9.3); Neutrophils # 5.9 K/mm3 (1.8-7.8); Neutrophils % 79.2 % (37.0-80.0); Platelet Count 298 K/mm3 (142-424); Red Blood Count 3.99 M/mm3 (4.60-6.20); Red Cell Distribution Width 13.9 % (11.5-17.5); White Blood Count 7.5 K/mm3 (4.8-10.8)
[2021-02-13 07:12] LABS: Anion Gap 12.9 mEq/L (5-15); Blood Urea Nitrogen 28 mg/dl (9-20); Calcium 7.5 mg/dl (8.4-10.2); Carbon Dioxide 22 mmol/L (22.0-30.0); Chloride 111 mmol/L (98-107); Creatinine Clearance Estimated 92 mL/min (50-200); Estimated Glomerular Filt Rate 74 ml/min (>60); GFR (African American) 90 ML/MIN (>60); Glucose 87 mg/dl (74-100); Magnesium 2.1 mg/dl (1.6-2.3); Potassium 3.9 mmoL/L (3.5-5.1); Sodium 142 mmol/L (136-145)
[2021-02-13 07:37] LABS: ABG Base Excess -3.7 mmol/L (-2.4-2.3); ABG HCO3 21.5 mmhg (22.0-26.0); ABG Oxygen Saturation 86 % (90-100); ABG PCO2 37.6 mmhg (35.0-45.0); ABG PH 7.38 mmol/L (7.35-7.45); ABG PO2 51.6 mmhg (80-100); ABG TCO2 22.6 mmhg (23-27)
[2021-02-13 07:40] LABS: Allen's Test Acceptable; Oxygen 100 %; PEEP 14; Tidal Volume 440; Vent Rate 22
[2021-02-13 07:41] LABS: Source Right Radial
--- NOTE | 2021-02-13 09:09 | HMH.PULMPN ---
Internal Medicine - PN: Subj *Date: 02/13/21 *Time: 13:43 Interval history: No acute respiratory events overnight. Exam - HENMT Exam HENMT: Present: normocephalic, atraumatic - Eye Exam Eyes:: Present: normal appearance both eyes and related structures - Neck Exam Neck:: Present: normal visual inspection - Respiratory Exam Respiratory:: Present: respiratory distress, crackles - Cardiovascular Exam Cardiac:: Present: S1, S2 - GI Exam GI:: Present: soft - Skin Exam Skin: Present: warm, no rash - Neurological Exam Intubated and sedated - Extremities Exam Extremities: Present: no cyanosis, no clubbing Assessment and Plan (1) COVID-19 with pulmonary comorbidity Status: Acute Category: Medical Code(s): U07.1 - COVID-19; J98.4 - Other disorders of lung (2) Obesity (BMI 30-39.9) Status: Acute Category: Medical Code(s): E66.9 - Obesity, unspecified (3) Acute respiratory failure due to COVID-19 Status: Acute Category: Medical Code(s): U07.1 - COVID-19; J96.00 - Acute respiratory failure, unspecified whether with hypoxia or hypercapnia (4) Hypothyroidism Status: Acute Qualifiers: Hypothyroidism type: acquired Qualified Code(s): E03.9 - Hypothyroidism, unspecified Category: Medical Code(s): E03.9 - Hypothyroidism, unspecified - Assessment and plan all Dx Assessment and Plan for all problems:: #COVID-19 pneumonia history: #Acute hypoxic respiratory failure: Mr. Macias is a 70-year-old male recently admitted to hospital in early January for a fall and found to be COVID-19 positive on 01/27/21 during which received remdesivir for 2 days while inpatient was discharged home on doxycycline presented to the hospital worsening respiratory failure. CTA on his most recent admission did not show any evidence of pulmonary embolism. Chest x-ray from admission compared to from his prior admission showed worsening left upper lobe and lower lobe groundglass opacities along with right middle lobe patchy airspace disease. Patient on presentation found to be severely hypoxic tachypneic eventually needing mechanical ventilatory support. Plan: - Continue AnalgoSedation with Propofol and Fentanyl -wean sedation as tolerated with CPOT goal less than or euqal to 2 and RASS goal of 1 to 2 - VAP bundle Elevate head of the bed at 30 to 45 degrees Oral care with chlorhexidne GI ulcer prophylaxis - Famotidine 20mg IV BID Chemical DVT prophylaxis Continue current mechanical ventilatory support. ABG from this morning showed worsening hypoxia. Ventilator settings changed. We will continue vancomycin and cefepime for hospital-acquired pneumonia, awaiting tracheal aspirate nasal MRSA PCR and repeat blood cultures. No evidence of DVT. Follow with CTA Continue dexamethasone Hemodynamically stable. Abdomen soft nontender. Renal function stable with adequate UO noted. #Thank you for involving pulmonary in this patient care. We will continue to follow.
--- NOTE | 2021-02-13 09:11 | CT_ITS ---
PROCEDURE: CT ANGIO CHEST PE PROTOCOL CLINCIAL INDICATION: Hypoxia Covid19 pneumonia COMPARISON: CT CT ANGIO CHEST PE PROTOCOL from 01/27/2021 TECHNIQUE: IV Contrast: 70ML Isovue 370 Axial images obtained with sagittal and coronal reformats. All CT scans at the facility use one or more dose reduction, viz: automated exposure control, ma/kV adjustment per patient size (including targeted exams where dose is matched to indication, i.e. head), or iterative reconstruction technique. FINDINGS: HEART AND MEDIASTINAL STRUCTURES: Endotracheal tube has been placed. The tip is 2.4 cm above the chester. No evidence of pulmonary embolus, aortic aneurysm, or aortic dissection. Nasogastric tube is also present. The tip is in the region of the fundus of the stomach. LUNGS AND PLEURAL SPACES: Multifocal ground-glass opacities are present in the upper and lower lobes also with dense consolidation in the lower lobes posteriorly and left upper lobe posteriorly. No effusions. There is left-sided lung volume loss with mild shift of the heart to the left. Small hiatal hernia noted. BONY STRUCTURES: No acute finding UPPER ABDOMEN: Cholelithiasis. Bilateral renal cysts ADDITIONAL FINDINGS: No other significant abnormalities. IMPRESSION: Multifocal ground-glass opacities consistent with Covid19 pneumonia with consolidation in the lower lobes and left upper lobe posteriorly with left-sided lung volume loss. No evidence of pulmonary embolus. Dictated by: Gilberto Cortes MD 02/13/2021 12:09 Gilberto Cortes MD in [facility] 02/13/2021 12:09
--- NOTE | 2021-02-13 09:34 | P.PN_ITS ---
Internal Medicine - PN: Subj *Date: 02/14/21 *Time: 16:46 Interval history: 70-year-old male lying in bed currently intubated and sedated Exam Vital signs and Labs for Last 24 Hours: Temp Pulse Resp BP Pulse Ox 96.8 F L 68 22 113/74 97 02/13/21 06:23 02/13/21 06:23 02/13/21 06:23 02/13/21 06:23 02/13/21 06:23 Laboratory Results - last 24 hr 02/12/21 17:55: D-Dimer 1.49 H 02/12/21 17:55: Ferritin 1430 H D, C-Reactive Protein 230.0 H 02/13/21 06:00: Specimen Source Right radial, O2 % 100, ABG pH 7.38, ABG pCO2 37.6, ABG pO2 51.6 L, ABG HCO3 21.5 L, ABG Total CO2 22.6 L, ABG O2 Saturation 86 L*, ABG Base Excess -3.7 L, Gilberto Test Acceptable, Vent Rate 22, Tidal Volume 440, PEEP 14 02/13/21 06:20: WBC 7.5, RBC 3.99 L, Hgb 13.0 L, Hct 37.7 L, MCV 94.6 H, MCH 32.6 H, MCHC 34.4, RDW 13.9, Plt Count 298, MPV 8.7, Neut % (Auto) 79.2, Lymph % (Auto) 9.4 L, [place] % (Auto) 10.7 H, Eos % (Auto) 0.6, Baso % (Auto) 0.2, Neut # (Auto) 5.9, Lymph # (Auto) 0.7, [place] # (Auto) 0.8, Eos # (Auto) 0.0, Baso # (Auto) 0.0 02/13/21 06:20: Sodium 142, Potassium 3.9, Chloride 111 H, Carbon Dioxide 22, Anion Gap 12.9, BUN 28 H, Creatinine 1.00, Estimated Creat Clear 92, Estimated GFR 74, Est GFR ( Amer) 90, Glucose 87, Calcium 7.5 L, Magnesium 2.1 D 02/13/21 06:29: POC Glucose 73 I & O for Last 24 hours: Intake & Output 09/1402/11/21 02/12/21 02/13/21 23:59 23:59 23:59 23:59 Intake Total 1017 / 1017 866 / 1319 1361.958 / 1361.958 Output Total 200 / 200 843 / 988 720 / 720 Balance 817 / 817 23 / 331 641.958 / 641.958 Weight 210 lb 203 lb 1.6 oz - Constitutional no acute distress - *Routine HEENT Exam Head: Present: normocephalic Eye: Present: EOMI ENT: Present: mucous membranes moist - *Routine Neck Exam Present: trachea midline. Absent: tracheal deviation - *Routine Respiratory Exam Present: patient mechanically ventilated, crackles - *Routine Cardiovascular Exam Present: RRR - *Routine Abdominal Exam Present: soft, normoactive bowel sounds. Absent: distended, firm - *Routine Extremities Exam Present: pulses intact. Absent: cyanosis, clubbing, edema - *Routine Skin Exam Present: intact, dry, warm. Absent: cyanosis, erythema - *Routine Neurological Exam Present: altered mental status Sedated - Routine Psychiatric Exam Present: unable to assess Comments: Sedated Assessment and Plan (1) COVID-19 with pulmonary comorbidity Status: Acute Category: Medical Code(s): U07.1 - COVID-19; J98.4 - Other disorders of lung (2) Obesity (BMI 30-39.9) Status: Acute Category: Medical Code(s): E66.9 - Obesity, unspecified (3) Acute respiratory failure due to COVID-19 Status: Acute Category: Medical Code(s): U07.1 - COVID-19; J96.00 - Acute respiratory failure, unspecified whether with hypoxia or hypercapnia (4) Hypothyroidism Status: Acute Qualifiers: Hypothyroidism type: acquired Qualified Code(s): E03.9 - Hypothyroidism, unspecified Category: Medical Code(s): E03.9 - Hypothyroidism, unspecified - Assessment and plan all Dx Assessment and Plan for all problems:: Rounded w/ Dr. Lora, all orders per Dr. Lora: 1. Wean O2 as tolerated 2. Pulmonology following
[2021-02-13 10:50] LABS: Chloride 114 mmol/L (98-107); Sodium 141 mmol/L (136-145)
[2021-02-13 10:52] LABS: Blood Urea Nitrogen 27 mg/dl (9-20); Creatinine Clearance Estimated 92 mL/min (50-200); Estimated Glomerular Filt Rate 96 ml/min (>60); GFR (African American) 116 ML/MIN (>60)
[2021-02-13 10:53] LABS: Alanine Aminotransferase 64 U/L (12-78); Albumin Level 2.6 g/dl (3.5-5.0); Albumin/Globulin Ratio 0.9 (1.1-1.8); Alkaline Phosphatase 102 U/L (38-126); Aspartate Amino Transferase 96 U/L (17-59); Bilirubin,Total 0.4 mg/dl (0.2-1.3); Calcium 7.9 mg/dl (8.4-10.2); Carbon Dioxide 19 mmol/L (22.0-30.0); Glucose 104 mg/dl (74-100); Total Protein,Serum 5.6 g/dl (6.3-8.2)
--- NOTE | 2021-02-13 11:35 | PC.NURSE ---
Pt placed on transport ventilator, transported to CT scan, Pt remained stable for the duration of the trip. Tolerated well no complications noted.
--- NOTE | 2021-02-13 22:13 | PC.NURSE ---
RESPIRATORY CARE NOTE: PT WAS PLACED ON A CONTINUOUS CO2 MONITOR AT THIS TIME. RT WILL MONITOR AND DOCUMENT CO2 LEVELS EVERY VENTILATOR CHECK.
[2021-02-14] VITALS (32 sets, daily range): BP systolic 93–137; BP diastolic 48–77; PULSE 50–78; RESP 19–30; TEMP 35.8–37.2; O2SAT 91–99; BMI 33.0
--- NOTE | 2021-02-14 06:00 | XR_ITS ---
PROCEDURE INFORMATION: Exam: XR Chest Exam date and time: 02/14/2021 6:00 AM Age: 70 years old Clinical indication: Device placement; Ett placement (vent status); Additional info: Intubation TECHNIQUE: Imaging protocol: XR of the chest. Views: 1 view. COMPARISON: CR XR CHEST PORTABLE 02/13/2021 5:11 AM FINDINGS: Supportive lines appear stable. Cardiac silhouette is unchanged. Similar bilateral airspace opacities again most consolidative in the left lower lung. Small left pleural effusion. No pneumothorax. IMPRESSION: Supportive lines appear stable. Similar bilateral airspace opacities and small left pleural effusion.
[2021-02-14 07:08] LABS: ABG Base Excess -8.3 mmol/L (-2.4-2.3); ABG HCO3 18.4 mmhg (22.0-26.0); ABG Oxygen Saturation 97 % (90-100); ABG PCO2 40.1 mmhg (35.0-45.0); ABG PH 7.28 mmol/L (7.35-7.45); ABG PO2 99.3 mmhg (80-100); ABG TCO2 19.7 mmhg (23-27)
[2021-02-14 07:38] LABS: Allen's Test Patient Unable; Oxygen 100 %; PEEP 16; Source Right Radial; Tidal Volume 440; Vent Rate 22
--- NOTE | 2021-02-14 10:33 | DIET.NUTRFU ---
Nutritional consult received to initiate TF. Order placed to begin pt on Pulmocare at 20mL/hr continuous and slowly increase to a goal rate of 47mL/hr. Pt currently receiving propofol and IV fluids. If IV Fluids are discontinued an additional 205mL free H2O flush should be provided q6h to meet pt fluid needs. Pulmocare at a goal rate of 47mL/hr provides 1656 kcal, 71g protein, and 885 mL free water. Will monitor and adjust TF and fluids as needed.
--- NOTE | 2021-02-14 11:23 | HMH.ACPN2 ---
Internal Medicine - PN: Subj *Date: 02/15/21 *Time: 01:04 Interval history: doing ok - intubated Exam Vital signs and Labs for Last 24 Hours: Temp Pulse Resp BP Pulse Ox 98.4 F 59 L 22 119/66 91 L 02/14/21 11:00 02/14/21 11:00 02/14/21 11:00 02/14/21 11:00 02/14/21 11:00 Laboratory Results - last 24 hr 02/14/21 06:00: Specimen Source Right radial, O2 % 100, ABG pH 7.28 L, ABG pCO2 40.1, ABG pO2 99.3, ABG HCO3 18.4 L, ABG Total CO2 19.7 L, ABG O2 Saturation 97, ABG Base Excess -8.3 L, Gilberto Test Patient unable, Vent Rate 22, Tidal Volume 440, PEEP 16 I & O for Last 24 hours: Intake & Output 02/11/21 02/12/21 02/13/21 02/14/21 11:59 11:59 11:59 11:59 Intake Total 1171 / 1171 2116.666 / 2116.666 3511.750 / 3511.750 Output Total 400 / 400 1503 / 1613 1007 / 1007 Balance 771 / 771 613.666 / 768.668 7886.750 / 2504.750 Weight 210 lb 203 lb 1.6 oz 205 lb 3 oz Microbiology Reports for the Last 24 Hours: Microbiology 02/11/21 20:35 Sputum - Endotracheal Tube Aspirate Gram Stain - Final 02/11/21 20:35 Sputum - Endotracheal Tube Aspirate Sputum Culture - Final No growth. 02/12/21 16:45 Nose - Nasal MRSA Culture - Final Negative 02/11/21 12:43 Blood Blood Culture - Preliminary NO GROWTH AFTER 48 HOURS 02/11/21 12:43 Blood Blood Culture - Preliminary NO GROWTH AFTER 48 HOURS - Constitutional obese Comments: sedated and intubated - *Routine HEENT Exam Head: Present: normocephalic Eye: Present: PERRL ENT: Present: mucous membranes dry - *Routine Neck Exam Absent: JVD - *Routine Respiratory Exam Present: patient mechanically ventilated - *Routine Cardiovascular Exam Present: RRR - *Routine Abdominal Exam Present: soft - *Routine Extremities Exam Present: edema - *Routine Skin Exam Present: intact - *Routine Neurological Exam no posturing - Routine Psychiatric Exam Present: unable to assess Assessment and Plan (1) COVID-19 with pulmonary comorbidity Status: Acute Category: Medical Code(s): U07.1 - COVID-19; J98.4 - Other disorders of lung (2) Obesity (BMI 30-39.9) Status: Acute Category: Medical Code(s): E66.9 - Obesity, unspecified (3) Acute respiratory failure due to COVID-19 Status: Acute Category: Medical Code(s): U07.1 - COVID-19; J96.00 - Acute respiratory failure, unspecified whether with hypoxia or hypercapnia (4) Hypothyroidism Status: Acute Qualifiers: Hypothyroidism type: acquired Qualified Code(s): E03.9 - Hypothyroidism, unspecified Category: Medical Code(s): E03.9 - Hypothyroidism, unspecified
--- NOTE | 2021-02-14 12:04 | PC.NURSE ---
1200 - Tube feed initiated per orders, pulmocare started @ 20 mls/hr. GRV prior to starting feed = 0.
[2021-02-14 15:27] LABS: Alanine Aminotransferase 45 U/L (12-78); Albumin Level 2.4 g/dl (3.5-5.0); Albumin/Globulin Ratio 0.8 (1.1-1.8); Alkaline Phosphatase 87 U/L (38-126); Anion Gap 14.3 mEq/L (5-15); Aspartate Amino Transferase 53 U/L (17-59); Bilirubin,Total 0.5 mg/dl (0.2-1.3); Blood Urea Nitrogen 23 mg/dl (9-20); Calcium 8.1 mg/dl (8.4-10.2); Carbon Dioxide 15 mmol/L (22.0-30.0); Chloride 116 mmol/L (98-107); Creatinine Clearance Estimated 93 mL/min (50-200); Estimated Glomerular Filt Rate 96 ml/min (>60); GFR (African American) 116 ML/MIN (>60); Glucose 167 mg/dl (74-100); Potassium 5.3 mmoL/L (3.5-5.1); Sodium 140 mmol/L (136-145); Total Protein,Serum 5.4 g/dl (6.3-8.2)
--- NOTE | 2021-02-14 16:40 | PC.NURSE ---
No acute changes. Remains vented, AC 440, PEEP 14, Rate 22, FIO2 100%. Sat mid to high 90's. Lungs noted to have scattered wheezes throughout on (R), diminished throughout. HR regular, 50-60. Abdomen soft, round. Tube feeds currently @ 30 mls/hr. Pt tolerating well. Skin intact. Pt turned Q2H, heels floating. Oral care and suctioning performed throughout shift. Mendoza care provided. Mendoza cath to drain @ bedside w/ clear yellow urine. No BM this shift. Pt will awaken breifly w/ activity but will go back to resting state promptly after. ROSS -2
[2021-02-14 23:16] LABS: Vancomycin,Trough 13.7 ug/mL (5.0-10.0)
[2021-02-15] VITALS (31 sets, daily range): BP systolic 97–124; BP diastolic 56–70; PULSE 50–78; RESP 22–26; TEMP 36.6–37.4; O2SAT 22–97; BMI 33.7
--- NOTE | 2021-02-15 | PC.NURSE ---
Spoke with [facility]watch about Vanc trough. OK to give current dose.
[2021-02-15 03:28] LABS: Basophils % 0.1 % (0.1-2.0); Eosinophils # 0.1 K/mm3 (0.0-0.4); Eosinophils % 0.8 % (0.1-12.0); Hematocrit 37.5 % (42.0-52.0); Hemoglobin 11.6 g/dL (14.1-18.0); Lymphocytes # 0.5 K/mm3 (0.7-4.5); Lymphocytes % 5.5 % (10-50); Mean Corpuscular HGB Conc 30.9 g/dL (31.8-35.4); Mean Corpuscular Hemoglobin 29.5 pg (27.0-31.2); Mean Corpuscular Volume 95.4 fl (80-94); Mean Platelet Volume 8.2 fl (7.4-10.4); Monocytes # 0.3 K/mm3 (0.1-1.0); Neutrophils # 7.8 K/mm3 (1.8-7.8); Neutrophils % 90.6 % (37.0-80.0); Platelet Count 314 K/mm3 (142-424); Red Blood Count 3.93 M/mm3 (4.60-6.20); Red Cell Distribution Width 13.9 % (11.5-17.5); White Blood Count 8.6 K/mm3 (4.8-10.8)
[2021-02-15 03:31] LABS: MANUAL DIFFERENTIAL MANUAL DIFFERENTIAL (MANUAL DIFF)
[2021-02-15 03:43] LABS: Lymphocytes % 6 % (10-50); Neutrophils % 88 % (42-76); Platelet Estimate Normal; Total Cells Counted 100
[2021-02-15 03:44] LABS: Hypochromasia 2+
[2021-02-15 03:49] LABS: Vancomycin,Peak 33.4 ug/ml (11-39)
[2021-02-15 03:55] LABS: Chloride 115 mmol/L (98-107); Potassium 4.4 mmoL/L (3.5-5.1); Sodium 140 mmol/L (136-145)
[2021-02-15 03:58] LABS: Alanine Aminotransferase 33 U/L (12-78); Albumin Level 2.1 g/dl (3.5-5.0); Albumin/Globulin Ratio 0.9 (1.1-1.8); Alkaline Phosphatase 93 U/L (38-126); Anion Gap 11.4 mEq/L (5-15); Aspartate Amino Transferase 46 U/L (17-59); Bilirubin,Total 0.2 mg/dl (0.2-1.3); Blood Urea Nitrogen 27 mg/dl (9-20); Calcium 7.7 mg/dl (8.4-10.2); Carbon Dioxide 18 mmol/L (22.0-30.0); Creatinine Clearance Estimated 93 mL/min (50-200); Estimated Glomerular Filt Rate 96 ml/min (>60); GFR (African American) 116 ML/MIN (>60); Globulin 2.4 g/dL (1.3-3.2); Total Protein,Serum 4.5 g/dl (6.3-8.2)
[2021-02-15 04:09] LABS: Glucose 122 mg/dl (74-100)
--- NOTE | 2021-02-15 06:00 | XR_ITS ---
PROCEDURE INFORMATION: Exam: XR Chest Exam date and time: 02/15/2021 6:00 AM Age: 70 years old Clinical indication: Device placement; Ett placement (vent status); Additional info: Intubation covid pneumonia also checking ng tube placement TECHNIQUE: Imaging protocol: XR of the chest. Views: 1 view. COMPARISON: CR XR CHEST PORTABLE 02/14/2021 5:42 AM FINDINGS: Tubes, catheters and devices: Nasogastric tube is in the stomach. The endotracheal tube is 0.5 cm from the chester. Lungs: Some patchy airspace disease is noted more prominent on the left, unchanged. Pleural spaces: Unremarkable. No pleural effusion. No pneumothorax. Heart/Mediastinum: Unremarkable. No cardiomegaly. Bones/joints: Unremarkable. IMPRESSION: Stable bilateral infiltrates.
[2021-02-15 07:29] LABS: ABG Base Excess -7.2 mmol/L (-2.4-2.3); ABG HCO3 18.9 mmhg (22.0-26.0); ABG Oxygen Saturation 97 % (90-100); ABG PCO2 37.7 mmhg (35.0-45.0); ABG PH 7.32 mmol/L (7.35-7.45); ABG PO2 92.4 mmhg (80-100); ABG TCO2 20.1 mmhg (23-27)
[2021-02-15 07:42] LABS: Allen's Test Patient Unable; Oxygen 100 %; PEEP 16; Source Right Radial; Tidal Volume 440; Vent Rate 22
--- NOTE | 2021-02-15 08:02 | PC.NURSE ---
Spoke w/ Dr. Becker via phone. ABG results provided. No changes to vent settings. Will CLAUDE abdullahi.
--- NOTE | 2021-02-15 12:34 | HMH.ACPN2 ---
Internal Medicine - PN: Subj *Date: 02/15/21 *Time: 08:45 Interval history: laying in bed sedated on vent Exam Vital signs and Labs for Last 24 Hours: Temp Pulse Resp BP Pulse Ox 99.0 F 69 22 118/62 94 L 02/15/21 11:00 02/15/21 11:00 02/15/21 11:56 02/15/21 11:00 02/15/21 11:56 Laboratory Results - last 24 hr 02/14/21 14:53: Sodium 140, Potassium 5.3 H D, Chloride 116 H, Carbon Dioxide 15 L, Anion Gap 14.3, BUN 23 H, Creatinine 0.80, Estimated Creat Clear 93, Estimated GFR 96, Est GFR ( Amer) 116, Glucose 167 H, Calcium 8.1 L, Total Bilirubin 0.5, AST 53 D, ALT 45 D, Alkaline Phosphatase 87, Total Protein 5.4 L, Albumin 2.4 L, Globulin 3.0, Albumin/Globulin Ratio 0.8 L 02/14/21 22:30: Vancomycin Trough 13.7 H 02/15/21 03:10: Vancomycin Peak 33.4 02/15/21 03:10: Sodium 140, Potassium 4.4, Chloride 115 H, Carbon Dioxide 18 L, Anion Gap 11.4, BUN 27 H, Creatinine 0.80, Estimated Creat Clear 93, Estimated GFR 96, Est GFR ( Amer) 116, Glucose 122 H D, Calcium 7.7 L, Total Bilirubin 0.2, AST 46, ALT 33 D, Alkaline Phosphatase 93, Total Protein 4.5 L, Albumin 2.1 L D, Globulin 2.4, Albumin/Globulin Ratio 0.9 L 02/15/21 03:10: WBC 8.6, RBC 3.93 L, Hgb 11.6 L, Hct 37.5 L, MCV 95.4 H, MCH 29.5, MCHC 30.9 L, RDW 13.9, Plt Count 314, MPV 8.2, Neut % (Auto) 90.6 H, Lymph % (Auto) 5.5 L, [place] % (Auto) 3.0, Eos % (Auto) 0.8, Baso % (Auto) 0.1, Neut # (Auto) 7.8, Lymph # (Auto) 0.5 L, [place] # (Auto) 0.3, Eos # (Auto) 0.1, Baso # (Auto) 0.0, Total Counted 100, Neutrophils % (Manual) 88 H, Band Neutrophils % 6.0, Lymphocytes % (Manual) 6 L, Platelet Estimate Normal, Hypochromasia 2+ 02/15/21 06:00: Specimen Source Right radial, O2 % 100, ABG pH 7.32 L, ABG pCO2 37.7, ABG pO2 92.4, ABG HCO3 18.9 L, ABG Total CO2 20.1 L, ABG O2 Saturation 97, ABG Base Excess -7.2 L, Gilberto Test Patient unable, Vent Rate 22, Tidal Volume 440, PEEP 16 I & O for Last 24 hours: Intake & Output 02/13/21 02/14/21 02/15/21 02/16/21 11:59 11:59 11:59 11:59 Intake Total 2116.666 / 2116.666 3511.750 / 3511.750 3641.000 / 3641.000 Output Total 1503 / 1613 1007 / 1047 1287 / 1287 Balance 613.666 / 130.101 0810.750 / 2464.750 2354.000 / 2354.000 Weight 203 lb 1.6 oz 205 lb 3 oz 210 lb - Constitutional no acute distress - *Routine HEENT Exam Head: Present: normocephalic Eye: Present: PERRL ENT: Present: mucous membranes moist - *Routine Neck Exam Present: supple. Absent: lymphadenopathy - *Routine Respiratory Exam Present: patient mechanically ventilated - *Routine Cardiovascular Exam Present: RRR - *Routine Abdominal Exam Present: soft, normoactive bowel sounds. Absent: tenderness - *Routine Extremities Exam Absent: cyanosis, clubbing, edema - *Routine Skin Exam Present: warm. Absent: rash - *Routine Neurological Exam sedated - Routine Psychiatric Exam Present: unable to assess Assessment and Plan (1) COVID-19 with pulmonary comorbidity Status: Acute Category: Medical Code(s): U07.1 - COVID-19; J98.4 - Other disorders of lung (2) Obesity (BMI 30-39.9) Status: Acute Category: Medical Code(s): E66.9 - Obesity, unspecified (3) Acute respiratory failure due to COVID-19 Status: Acute Category: Medical Code(s): U07.1 - COVID-19; J96.00 - Acute respiratory failure, unspecified whether with hypoxia or hypercapnia (4) Hypothyroidism Status: Acute Qualifiers: Hypothyroidism type: acquired Qualified Code(s): E03.9 - Hypothyroidism, unspecified Category: Medical Code(s): E03.9 - Hypothyroidism, unspecified - Assessment and plan all Dx Assessment and Plan for all problems:: belinda rounded all orders per belinda continue plan of care
[2021-02-16] VITALS (34 sets, daily range): BP systolic 88–146; BP diastolic 50–78; PULSE 67–91; RESP 22–30; TEMP 37.3–38; O2SAT 84–98; BMI 35.0
--- NOTE | 2021-02-16 06:00 | XR_ITS ---
PROCEDURE INFORMATION: Exam: XR Chest Exam date and time: 02/16/2021 6:00 AM Age: 70 years old Clinical indication: Device placement; Ett placement (vent status); Additional info: Intubation covid patient TECHNIQUE: Imaging protocol: XR of the chest. Views: 1 view. COMPARISON: CR XR CHEST PORTABLE 02/15/2021 4:40 AM FINDINGS: Tubes, catheters and devices: Endotracheal tube is seen with the tip 3.5 cm from the chester. Cardiac leads overlie the chest. Lungs: Bilateral patchy airspace disease and consolidation consistent pneumonia. Pleural spaces: No pleural effusion. No pneumothorax. Heart/Mediastinum: No acute findings or cardiomegaly. Bones/joints: No acute findings. IMPRESSION: 1. Bilateral multifocal pneumonia. 2. Endotracheal tube tip 3.5 cm from the chester.
[2021-02-16 06:18] LABS: Basophils % 0.1 % (0.1-2.0); Eosinophils # 0.1 K/mm3 (0.0-0.4); Eosinophils % 0.9 % (0.1-12.0); Hemoglobin 12.2 g/dL (14.1-18.0); Lymphocytes # 0.3 K/mm3 (0.7-4.5); Lymphocytes % 2.9 % (10-50); Mean Corpuscular HGB Conc 32.9 g/dL (31.8-35.4); Mean Corpuscular Hemoglobin 30.7 pg (27.0-31.2); Mean Corpuscular Volume 93.5 fl (80-94); Mean Platelet Volume 9.1 fl (7.4-10.4); Monocytes # 0.9 K/mm3 (0.1-1.0); Monocytes % 7.5 % (1.7-9.3); Neutrophils # 10.5 K/mm3 (1.8-7.8); Neutrophils % 88.6 % (37.0-80.0); Platelet Count 323 K/mm3 (142-424); Red Blood Count 3.96 M/mm3 (4.60-6.20); Red Cell Distribution Width 14.1 % (11.5-17.5); White Blood Count 11.9 K/mm3 (4.8-10.8)
[2021-02-16 06:20] LABS: MANUAL DIFFERENTIAL MANUAL DIFFERENTIAL (MANUAL DIFF)
[2021-02-16 06:27] LABS: Lymphocytes % 8 % (10-50); Monocytes % 1 % (2-9); Neutrophils % 87 % (42-76); Platelet Estimate Normal; RBC Morphology Normal; Rouleaux 1+; Total Cells Counted 100
[2021-02-16 06:34] LABS: Alanine Aminotransferase 35 U/L (12-78); Albumin Level 2.1 g/dl (3.5-5.0); Albumin/Globulin Ratio 0.8 (1.1-1.8); Alkaline Phosphatase 146 U/L (38-126); Anion Gap 13.5 mEq/L (5-15); Aspartate Amino Transferase 51 U/L (17-59); Bilirubin,Total 0.6 mg/dl (0.2-1.3); Blood Urea Nitrogen 28 mg/dl (9-20); Calcium 7.7 mg/dl (8.4-10.2); Carbon Dioxide 17 mmol/L (22.0-30.0); Chloride 115 mmol/L (98-107); Creatinine Clearance Estimated 99 mL/min (50-200); Estimated Glomerular Filt Rate 96 ml/min (>60); GFR (African American) 116 ML/MIN (>60); Globulin 2.5 g/dL (1.3-3.2); Glucose 143 mg/dl (74-100); Potassium 4.5 mmoL/L (3.5-5.1); Sodium 141 mmol/L (136-145); Total Protein,Serum 4.6 g/dl (6.3-8.2)
[2021-02-16 07:41] LABS: ABG Base Excess -6.7 mmol/L (-2.4-2.3); ABG HCO3 18.9 mmhg (22.0-26.0); ABG Oxygen Saturation 95 % (90-100); ABG PCO2 34.8 mmhg (35.0-45.0); ABG PH 7.35 mmol/L (7.35-7.45); ABG PO2 74.3 mmhg (80-100); ABG TCO2 19.9 mmhg (23-27)
[2021-02-16 07:42] LABS: Allen's Test Patient Unable; Oxygen 100 %; PEEP 16; Source Left Radial; Tidal Volume 440; Vent Rate 22
--- NOTE | 2021-02-16 09:38 | HMH.ACPN2 ---
Internal Medicine - PN: Subj *Date: 02/16/21 *Time: 09:38 Exam Vital signs and Labs for Last 24 Hours: Temp Pulse Resp BP Pulse Ox 99.7 F H 79 22 121/69 92 L 02/16/21 06:56 02/16/21 06:56 02/16/21 06:56 02/16/21 06:56 02/16/21 06:56 Laboratory Results - last 24 hr 02/16/21 05:30: WBC 11.9 H D, RBC 3.96 L, Hgb 12.2 L, Hct 37.0 L, MCV 93.5, MCH 30.7, MCHC 32.9, RDW 14.1, Plt Count 323, MPV 9.1, Neut % (Auto) 88.6 H, Lymph % (Auto) 2.9 L, Gaines % (Auto) 7.5, Eos % (Auto) 0.9, Baso % (Auto) 0.1, Neut # (Auto) 10.5 H, Lymph # (Auto) 0.3 L, Gaines # (Auto) 0.9, Eos # (Auto) 0.1, Baso # (Auto) 0.0, Total Counted 100, Neutrophils % (Manual) 87 H, Band Neutrophils % 4.0, Lymphocytes % (Manual) 8 L, Monocytes % (Manual) 1 L, Platelet Estimate Normal, RBC Morphology Normal, Rouleaux 1+ 02/16/21 05:30: Sodium 141, Potassium 4.5, Chloride 115 H, Carbon Dioxide 17 L, Anion Gap 13.5, BUN 28 H, Creatinine 0.80, Estimated Creat Clear 99, Estimated GFR 96, Est GFR ( Amer) 116, Glucose 143 H, Calcium 7.7 L, Total Bilirubin 0.6, AST 51, ALT 35, Alkaline Phosphatase 146 H, Total Protein 4.6 L, Albumin 2.1 L, Globulin 2.5, Albumin/Globulin Ratio 0.8 L 02/16/21 06:00: Specimen Source Left radial, O2 % 100, ABG pH 7.35, ABG pCO2 34.8 L, ABG pO2 74.3 L, ABG HCO3 18.9 L, ABG Total CO2 19.9 L, ABG O2 Saturation 95, ABG Base Excess -6.7 L, Gilberto Test Patient unable, Vent Rate 22, Tidal Volume 440, PEEP 16 I & O for Last 24 hours: Intake & Output 02/13/21 02/14/21 02/15/21 02/16/21 23:59 23:59 23:59 23:59 Intake Total 3533.416 / 4240.416 3556.042 / 4301.042 4487.500 / 4487.500 Output Total 1417 / 1467 1105 / 1140 1195 / 1265 370 / 370 Balance 2116.416 / 2773.416 2451.042 / 3161.042 3292.500 / 3222.500 -370 / -370 Weight 92 kg 93.071 kg 95.254 kg 98.997 kg Assessment and Plan (1) COVID-19 with pulmonary comorbidity Status: Acute Category: Medical Code(s): U07.1 - COVID-19; J98.4 - Other disorders of lung (2) Obesity (BMI 30-39.9) Status: Acute Category: Medical Code(s): E66.9 - Obesity, unspecified (3) Acute respiratory failure due to COVID-19 Status: Acute Category: Medical Code(s): U07.1 - COVID-19; J96.00 - Acute respiratory failure, unspecified whether with hypoxia or hypercapnia (4) Hypothyroidism Status: Acute Qualifiers: Hypothyroidism type: acquired Qualified Code(s): E03.9 - Hypothyroidism, unspecified Category: Medical Code(s): E03.9 - Hypothyroidism, unspecified The patient's infection will respond to the chosen ABx?: Yes Is the patient receiving the right drug, dose, and route?: Yes Could a more targeted ABx be ordered?: No
--- NOTE | 2021-02-16 11:18 | HMH.PULMPN ---
Internal Medicine - PN: Subj *Date: 02/16/21 *Time: 15:06 Interval history: No acute respiratory events over the weekend. Patient continued to remain on high vent settings. Exam - Constitutional Constitutional:: Present: no acute distress, comfortable - HENMT Exam HENMT: Present: normocephalic, atraumatic - Eye Exam Eyes:: Present: normal appearance both eyes and related structures - Neck Exam Neck:: Present: normal visual inspection - Respiratory Exam Respiratory:: Present: decreased breath sounds, crackles, rales - Cardiovascular Exam Cardiac:: Present: S1, S2 - GI Exam GI:: Present: soft - Skin Exam Skin: Present: warm - Neurological Exam Neurological: Absent: alert, awake, normal cognition Intubated and sedated. - Extremities Exam Extremities: Present: no cyanosis, no clubbing, edema Assessment and Plan (1) COVID-19 with pulmonary comorbidity Status: Acute Category: Medical Code(s): U07.1 - COVID-19; J98.4 - Other disorders of lung (2) Obesity (BMI 30-39.9) Status: Acute Category: Medical Code(s): E66.9 - Obesity, unspecified (3) Acute respiratory failure due to COVID-19 Status: Acute Category: Medical Code(s): U07.1 - COVID-19; J96.00 - Acute respiratory failure, unspecified whether with hypoxia or hypercapnia (4) Hypothyroidism Status: Acute Qualifiers: Hypothyroidism type: acquired Qualified Code(s): E03.9 - Hypothyroidism, unspecified Category: Medical Code(s): E03.9 - Hypothyroidism, unspecified - Assessment and plan all Dx Assessment and Plan for all problems:: #COVID-19 pneumonia history: #Acute hypoxic respiratory failure: Mr. Macias is a 70-year-old male recently admitted to hospital in early January for a fall and found to be COVID-19 positive on 01/27/21 during which received remdesivir for 2 days while inpatient was discharged home on doxycycline presented to the hospital worsening respiratory failure. CTA on his most recent admission did not show any evidence of pulmonary embolism. Chest x-ray from admission compared to from his prior admission showed worsening left upper lobe and lower lobe groundglass opacities along with right middle lobe patchy airspace disease. Patient on presentation found to be severely hypoxic tachypneic eventually needing mechanical ventilatory support. Plan: - Continue AnalgoSedation with Propofol and Fentanyl -wean sedation as tolerated with CPOT goal less than or euqal to 2 and RASS goal of 1 to 2 - VAP bundle Elevate head of the bed at 30 to 45 degrees Oral care with chlorhexidne GI ulcer prophylaxis - Famotidine 20mg IV BID Chemical DVT prophylaxis Continue current mechanical ventilatory support. ABG from this morning showed pH of 7.35 with a PCO2 34.8 and PO2 of 74.3. FiO2 was decreased 80% however patient did not tolerated. His PEEP was increased secondary to desaturations. We will continue to wean PEEP as tolerated after diuresis We will discontinue vancomycin and will continue cefepime for total of 7 days. Tracheal aspirate and nasal MRSA PCR negative. Blood culture no growth 48 hours. Slight worsening leukocytosis 11.9. Febrile episodes. We will closely monitor. No evidence of DVT /PE Continue dexamethasone Hemodynamically stable. Slight worsening leukocytosis 11.9. Febrile episodes. We will continue to monitor. Abdomen soft nontender. Patient appeared to be having tube feed secretions from tracheal suction. We will hold tube feeds for the next 6 hours and will initiate at 30 mL/h. We will continue to elevate the head of the bed at 45 degrees. Renal function stable with adequate UO noted. Lasix 40 mg IV once #Thank you for involving pulmonary in this patient care. We will continue to follow.
--- NOTE | 2021-02-16 12:19 | XR_ITS ---
PROCEDURE: XR CHEST PORTABLE CLINICAL HISTORY: central line placement COMPARISON: CT CT ANGIO CHEST PE PROTOCOL from 02/13/2021 CR XR CHEST PORTABLE from 02/14/2021 CR XR CHEST PORTABLE from 02/15/2021 CR XR CHEST PORTABLE from 02/16/2021 FINDINGS: There has been interval insertion of a right subclavian central venous line. The tip is in good position in the region the superior vena cava. No evidence of pneumothorax. Endotracheal tube and nasogastric tube remain in good position. Normal heart size. Diffuse bilateral multifocal infiltrates are once again noted slightly worse in the right lower lobe and slightly improved in the right upper lobe and unchanged in the left lower lobe. May be small bilateral effusions. No acute bony abnormalities. IMPRESSION: Recently placed right subclavian central venous line with the tip in good position. Endotracheal tube and nasogastric tube remain in good position. Bilateral multifocal pneumonia Dictated by: Gilberto Cortes MD 02/16/2021 14:01 Gilberto Cortes MD in [facility] 02/16/2021 14:01
--- NOTE | 2021-02-16 12:36 | P.PN_ITS ---
Internal Medicine - PN: Subj *Date: 02/16/21 *Time: 08:00 Interval history: no reported changes Exam Vital signs and Labs for Last 24 Hours: Temp Pulse Resp BP Pulse Ox 99.7 F H 67 23 121/69 91 L 02/16/21 06:56 02/16/21 10:30 02/16/21 10:30 02/16/21 06:56 02/16/21 10:30 Laboratory Results - last 24 hr 02/16/21 05:30: WBC 11.9 H D, RBC 3.96 L, Hgb 12.2 L, Hct 37.0 L, MCV 93.5, MCH 30.7, MCHC 32.9, RDW 14.1, Plt Count 323, MPV 9.1, Neut % (Auto) 88.6 H, Lymph % (Auto) 2.9 L, Thurston % (Auto) 7.5, Eos % (Auto) 0.9, Baso % (Auto) 0.1, Neut # (Auto) 10.5 H, Lymph # (Auto) 0.3 L, [place]ston # (Auto) 0.9, Eos # (Auto) 0.1, Baso # (Auto) 0.0, Total Counted 100, Neutrophils % (Manual) 87 H, Band Neutrophils % 4.0, Lymphocytes % (Manual) 8 L, Monocytes % (Manual) 1 L, Platelet Estimate Normal, RBC Morphology Normal, Rouleaux 1+ 02/16/21 05:30: Sodium 141, Potassium 4.5, Chloride 115 H, Carbon Dioxide 17 L, Anion Gap 13.5, BUN 28 H, Creatinine 0.80, Estimated Creat Clear 99, Estimated GFR 96, Est GFR ( Amer) 116, Glucose 143 H, Calcium 7.7 L, Total Bilirubin 0.6, AST 51, ALT 35, Alkaline Phosphatase 146 H, Total Protein 4.6 L, Albumin 2.1 L, Globulin 2.5, Albumin/Globulin Ratio 0.8 L 02/16/21 06:00: Specimen Source Left radial, O2 % 100, ABG pH 7.35, ABG pCO2 34.8 L, ABG pO2 74.3 L, ABG HCO3 18.9 L, ABG Total CO2 19.9 L, ABG O2 Saturation 95, ABG Base Excess -6.7 L, Gilberto Test Patient unable, Vent Rate 22, Tidal Volume 440, PEEP 16 I & O for Last 24 hours: Intake & Output 02/14/21 02/15/21 02/16/21 02/17/21 11:59 11:59 11:59 11:59 Intake Total 3511.750 / 3511.750 3641.000 / 4938.000 3019.542 / 3019.542 Output Total 1007 / 1047 1287 / 1387 933 / 933 Balance 2504.750 / 2464.750 2354.000 / 3551.000 2086.542 / 2086.542 Weight 205 lb 3 oz 210 lb 218 lb 4 oz - Constitutional Comments: sedated and intubated - *Routine HEENT Exam Head: Present: normocephalic Eye: Present: PERRL ENT: Present: mucous membranes dry - *Routine Neck Exam Absent: JVD - *Routine Respiratory Exam Present: patient mechanically ventilated - *Routine Cardiovascular Exam Present: RRR - *Routine Abdominal Exam Present: soft - *Routine Extremities Exam Present: edema - *Routine Skin Exam Present: intact - *Routine Neurological Exam no posturing - Routine Psychiatric Exam Present: unable to assess Assessment and Plan (1) COVID-19 with pulmonary comorbidity Status: Acute Category: Medical Code(s): U07.1 - COVID-19; J98.4 - Other disorders of lung (2) Obesity (BMI 30-39.9) Status: Acute Category: Medical Code(s): E66.9 - Obesity, unspecified (3) Acute respiratory failure due to COVID-19 Status: Acute Category: Medical Code(s): U07.1 - COVID-19; J96.00 - Acute respiratory failure, unspecified whether with hypoxia or hypercapnia (4) Hypothyroidism Status: Acute Qualifiers: Hypothyroidism type: acquired Qualified Code(s): E03.9 - Hypothyroidism, unspecified Category: Medical Code(s): E03.9 - Hypothyroidism, unspecified (5) Schizophrenia Status: Acute Qualifiers: Schizophrenia type: unspecified Qualified Code(s): F20.9 - Schizophrenia, unspecified Category: Medical Code(s): F20.9 - Schizophrenia, unspecified
--- NOTE | 2021-02-16 13:07 | P.OP_ITS ---
Date of procedure: 02/16/21 Pre-op Diagnosis:: Need for central venous access Post-op Diagnosis:: Same Procedure performed:: Placement of nontunneled 7 Bangladeshi triple-lumen in right subclavian vein Surgeon:: Edenilson Hidalgo MD Anesthesia: local Estimated blood loss (mL): 40 Clinical Note:: Patient is a 70-year-old male who is a resident at [facility] who had recently been admitted to the hospital with COVID-19 pneumonia. He presented several days ago with worsening respiratory failure needing high flow oxygen. He ultimately required intubation with mechanical ventilation. Surgery was consulted for central line placement. Operative findings:: Tenuous venous return bilaterally. Ultimately required placement on the right. Operative note:: Consent was obtained. Patient was positioned in Trendelenburg position. Left neck and chest were prepped and draped in the standard surgical fashion. Local anesthetic was infiltrated inferior to the left clavicle. Multiple passes were made of the 18-gauge needle. This was repositioned somewhat laterally and then medially. There was a very tenuous sluggish return of venous blood on a couple of occasions. However each time the guidewire could not be threaded. Due to multiple unsuccessful attempts on the left side plan was made for placement on the right. Patient was then reprepped and draped. Local anesthetic was infiltrated inferior to the right clavicle. Several passes were made of the 18- gauge needle manipulating it posterior to the clavicle. Ultimately the right subclavian vein was cannulated. There was sluggish return of venous blood. Initially guidewire would not thread. However, upon repositioning of the needle with return of venous blood guidewire was able to be inserted. Small incision was made the insertion site. Subcutaneous tissues were dilated. 7 Bangladeshi triple-lumen catheter was threaded over the guidewire using Seldinger technique. It was secured to the skin at approximately the 14 cm mine. Clean dry sterile dressing was applied. Chest x-ray pending at the time of this dictation. Condition: critical Disposition: no change Complications:: None immediately apparent
--- NOTE | 2021-02-16 13:12 | HMH.GSCON ---
*Admission Date: 02/12/21 *Reason for consult:: Central line placement *History of present illness: Patient intubated and sedated much of the history is obtained from chart review. Mr. Macias is a 70-year-old male recently admitted to the hospital and discharged after diagnosed with COVID-19 pneumonia presented to the hospital worsening respiratory failure initially needing high flow nasal eventual escalate intubation and mechanical ventilation to maintain adequate oxygen saturations and pulmonary was called for further management. Review of Systems - Review of Systems Review of systems:: unable to obtain - *Neurologic Reports weakness, Denies seizure-like activity, Denies headache(s), Denies tingling/numbness/burning sensations [facility] History I have reviewed the patient's past medical history: Yes Medical History: Reports:: Hyperlipidemia, Hypertension, Seizures Denies:: Cancer, Diabetes Mellitus Type 1, Diabetes Mellitus Type 2, Internal Pacemaker, MRSA *Have you ever received a pneumonia vaccine?: No *Have you received a flu vaccine this season?: No Other Medical History: Reports: Anemia, Hypothyroidism, Thyroid Disease Other Surgeries: Yes: Appendectomy, Colonoscopy, Other. No: Pacemaker Amputation: No Fractures: No - *Social History Smoking Status: Never smoker Alcohol Intake: never *Occupational Status:: disabled Housing: assisted living facility Household Members: other *Travel in the last 8 weeks: None Family Hx:: Unable to obtain Med Home Medications Medication Instructions Recorded Confirmed Type Levothyroxine Sodium 50 mcg PO DAILY 01/11/19 02/11/21 History [Levothyroxine 50mcg (0.05mg) Tab] OLANZapine [Zyprexa] 20 mg PO DAILY 01/11/19 02/11/21 History Stewardson-3S/Dha/Epa/Fish Oil [Fish 1 each PO TID 01/11/19 02/11/[address] 1,000 mg Softgel] Simvastatin 20 mg PO HS 01/11/19 02/12/21 History buPROPion HCL [Wellbutrin XL] 150 mg PO DAILY 01/11/19 02/11/21 History ibuprofen 800 mg tablet 800 mg PO Q8HP PRN 01/14/20 02/12/21 History sertraline 100 mg tablet 200 mg PO DAILY tab 01/14/20 02/11/21 History Fluconazole [Diflucan 100mg tablet] 100 mg PO DAILY 01/28/21 02/11/21 History Loperamide HCl [Anti-Diarrheal] 2 mg PO Q4HP PRN 01/28/21 02/12/21 History Pantoprazole Sodium [Protonix 40mg 40 mg PO DAILY 01/28/21 02/11/21 History tablet] ondansetron HCL [Zofran 4mg Tab*] 4 mg PO Q4-6H PRN 01/28/21 02/11/21 History Allergies Allergy/AdvReac Type Severity Reaction Status Date / Time haloperidol [HALOPERIDOL] Allergy Mild Verified 11/14/20 10:48 Penicillins [PENICILLINS] Allergy Mild Verified 11/14/20 10:48 Exam Vital signs and Labs for Last 24 Hours: Temp Pulse Resp BP Pulse Ox 99.7 F H 67 23 121/69 91 L 02/16/21 06:56 02/16/21 10:30 02/16/21 10:30 02/16/21 06:56 02/16/21 10:30 Laboratory Results - last 24 hr 02/16/21 05:30: WBC 11.9 H D, RBC 3.96 L, Hgb 12.2 L, Hct 37.0 L, MCV 93.5, MCH 30.7, MCHC 32.9, RDW 14.1, Plt Count 323, MPV 9.1, Neut % (Auto) 88.6 H, Lymph % (Auto) 2.9 L, [place] % (Auto) 7.5, Eos % (Auto) 0.9, Baso % (Auto) 0.1, Neut # (Auto) 10.5 H, Lymph # (Auto) 0.3 L, [place] # (Auto) 0.9, Eos # (Auto) 0.1, Baso # (Auto) 0.0, Total Counted 100, Neutrophils % (Manual) 87 H, Band Neutrophils % 4.0, Lymphocytes % (Manual) 8 L, Monocytes % (Manual) 1 L, Platelet Estimate Normal, RBC Morphology Normal, Rouleaux 1+ 02/16/21 05:30: Sodium 141, Potassium 4.5, Chloride 115 H, Carbon Dioxide 17 L, Anion Gap 13.5, BUN 28 H, Creatinine 0.80, Estimated Creat Clear 99, Estimated GFR 96, Est GFR ( Amer) 116, Glucose 143 H, Calcium 7.7 L, Total Bilirubin 0.6, AST 51, ALT 35, Alkaline Phosphatase 146 H, Total Protein 4.6 L, Albumin 2.1 L, Globulin 2.5, Albumin/Globulin Ratio 0.8 L 02/16/21 06:00: Specimen Source Left radial, O2 % 100, ABG pH 7.35, ABG pCO2 34.8 L, ABG pO2 74.3 L, ABG HCO3 18.9 L, ABG Total CO2 19.9 L, ABG O2 Saturation 95, ABG Base Excess -6.7 L, Gilberto Test Patient
--- NOTE | 2021-02-16 14:02 | DIET.NUTRFU ---
Addendum entered by Jahaira Doherty RDN, TAMMY 02/18/21 11:52: TF stopped at this time per RN. Recommend restarting pt TF and slowly increasing to goal rate as tolerated. Pt renal function decreasing. Will continue to monitor and possibly change TF formula to match renal function when restarted. Original Note: TF stopped at this time per RN. Pt was tolerating [facility] TF at a rate of 30mL/hr on 02/14 per RN note. Pt with central line placed today. Recommend restarting pt TF and slowly increasing to goal rate as tolerated. Renal function stable with Glucose running at 167, 122, 143.
[2021-02-16 21:33] LABS: Microscopic, Urine URINE MICROSCOPIC (MICROSCOPIC)
[2021-02-16 21:41] LABS: Appearance,Urine CLEAR (Clear); Bilirubin,Urine Negative (Negative); Blood, Urine Negative (Negative); Color,Urine YELLOW (Yellow); Glucose,Urine (UA) Negative (Negative); Ketones,Urine Negative (Negative); Leukocyte Esterase,Urine Negative (Negative); Nitrate,Urine Negative (Negative); Protein,Urine TRACE (Negative); Urobilinogen,Urine 0.2 EU/dl (0.2)
[2021-02-17] VITALS (37 sets, daily range): BP systolic 83–143; BP diastolic 31–79; PULSE 80–117; RESP 18–32; TEMP 36.9–37.7; O2SAT 75–96; BMI 35.4
--- NOTE | 2021-02-17 00:53 | XR_ITS ---
PROCEDURE INFORMATION: Exam: XR Chest Exam date and time: 02/17/2021 12:53 AM Age: 70 years old Clinical indication: Device placement; Ett placement (vent status); Shortness of breath; Patient HX: Covid; Additional info: PT with decreasing o2 sats. TECHNIQUE: Imaging protocol: XR of the chest. Views: 1 view. COMPARISON: CR XR CHEST PORTABLE 02/16/2021 1:10 PM FINDINGS: There is an endotracheal tube with its tip 3.7 cm above the chester. A nasogastric tube is noted with its tip below the diaphragm. Overall position of tubes is stable when compared with prior examination. Lungs: Bilateral patchy airspace opacities are identified, with predilection for mid and lower lung zones. Overall appearance is not appreciably changed when compared to prior examination, taking into account differences in technique. Pleural spaces: Unremarkable. No pleural effusion. No pneumothorax. Heart/Mediastinum: Unremarkable. No cardiomegaly. Bones/joints: Degenerative changes of the thoracic spine are again noted. IMPRESSION: Taking into account differences in technique overall appearance of the chest is not appreciably changed since prior examination of 02/16/2021.
--- NOTE | 2021-02-17 01:05 | PC.NURSE ---
His O2 has decreased into the 70s and high 60s at times. He will rebound into the mid to upper 80s. His respirations are 27-30.
[2021-02-17 01:10] LABS: ABG HCO3 17.9 mmhg (22.0-26.0); ABG Oxygen Saturation 89 % (90-100); ABG PCO2 46.2 mmhg (35.0-45.0); ABG PH 7.21 mmol/L (7.35-7.45); ABG TCO2 19.3 mmhg (23-27)
[2021-02-17 01:12] LABS: Allen's Test Acceptable; Oxygen 100 %; PEEP 20; Tidal Volume 440; Vent Rate 22
[2021-02-17 01:13] LABS: Source Left Radial
[2021-02-17 06:19] LABS: Alanine Aminotransferase 28 U/L (12-78); Albumin Level 2.6 g/dl (3.5-5.0); Albumin/Globulin Ratio 0.8 (1.1-1.8); Alkaline Phosphatase 169 U/L (38-126); Anion Gap 15.8 mEq/L (5-15); Aspartate Amino Transferase 44 U/L (17-59); Basophils % 0.2 % (0.1-2.0); Bilirubin,Total 0.9 mg/dl (0.2-1.3); Blood Urea Nitrogen 37 mg/dl (9-20); Calcium 8.3 mg/dl (8.4-10.2); Carbon Dioxide 20 mmol/L (22.0-30.0); Chloride 112 mmol/L (98-107); Creatinine Clearance Estimated 67 mL/min (50-200); Eosinophils % 0.1 % (0.1-12.0); Estimated Glomerular Filt Rate 47 ml/min (>60); GFR (African American) 56 ML/MIN (>60); Globulin 3.4 g/dL (1.3-3.2); Glucose 139 mg/dl (74-100); Hemoglobin 12.3 g/dL (14.1-18.0); Lymphocytes # 0.4 K/mm3 (0.7-4.5); Lymphocytes % 1.8 % (10-50); Mean Corpuscular HGB Conc 31.5 g/dL (31.8-35.4); Mean Corpuscular Hemoglobin 30.5 pg (27.0-31.2); Mean Corpuscular Volume 96.8 fl (80-94); Mean Platelet Volume 9.1 fl (7.4-10.4); Monocytes # 0.6 K/mm3 (0.1-1.0); Monocytes % 2.6 % (1.7-9.3); Neutrophils # 20.7 K/mm3 (1.8-7.8); Neutrophils % 95.3 % (37.0-80.0); Platelet Count 456 K/mm3 (142-424); Potassium 4.8 mmoL/L (3.5-5.1); Red Blood Count 4.03 M/mm3 (4.60-6.20); Red Cell Distribution Width 15.1 % (11.5-17.5); Sodium 143 mmol/L (136-145); White Blood Count 21.7 K/mm3 (4.8-10.8)
[2021-02-17 06:25] LABS: MANUAL DIFFERENTIAL MANUAL DIFFERENTIAL (MANUAL DIFF)
[2021-02-17 07:20] LABS: ABG Base Excess -12.1 mmol/L (-2.4-2.3); ABG HCO3 17.5 mmhg (22.0-26.0); ABG Oxygen Saturation 86 % (90-100); ABG PO2 58.2 mmhg (80-100); ABG TCO2 19.2 mmhg (23-27)
[2021-02-17 07:37] LABS: Oxygen 100 %; PEEP 20; Tidal Volume 440; Vent Rate 22
[2021-02-17 07:38] LABS: Allen's Test ACCEPTABLE; Source Left Radial
[2021-02-17 08:17] LABS: Hypochromasia 2+; Lymphocytes % 1 % (10-50); Macrocytosis 1+; Monocytes % 3 % (2-9); Neutrophils % 96 % (42-76); Platelet Estimate Normal; Total Cells Counted 100
--- NOTE | 2021-02-17 09:06 | HMH.ACPN2 ---
Internal Medicine - PN: Subj *Date: 02/17/21 *Time: 12:54 Interval history: 70 YOM in bed, intubated and sedated. His O2 requirements increased during night and current O2 at 100%. Pulmonology in route Exam Vital signs and Labs for Last 24 Hours: Temp Pulse Resp BP Pulse Ox 98.6 F 100 H 32 H 98/61 L 88 L 02/17/21 06:50 02/17/21 06:50 02/17/21 06:50 02/17/21 06:50 02/17/21 06:50 Laboratory Results - last 24 hr 02/16/21 21:10: Urine Color Yellow, Urine Appearance Clear, Urine pH 6.0, Ur Specific [place] 1.020, Urine Protein Trace, Urine Glucose (UA) Negative, Urine Ketones Negative, Urine Blood Negative, Urine Nitrate Negative, Urine Bilirubin Negative, Urine Urobilinogen 0.2, Ur Leukocyte Esterase Negative, Urine RBC None, Urine WBC None, Ur Squamous Epith Cells None, Urine Bacteria None 02/17/21 00:53: Specimen Source Left radial, O2 % 100, ABG pH 7.21 L*, ABG pCO2 46.2 H, ABG pO2 62.0 L, ABG HCO3 17.9 L, ABG Total CO2 19.3 L, ABG O2 Saturation 89 L, ABG Base Excess -10.0 L, Gilberto Test Acceptable, Vent Rate 22, Tidal Volume 440, PEEP 20 02/17/21 04:45: WBC 21.7 H* D, RBC 4.03 L, Hgb 12.3 L, Hct 39.0 L, MCV 96.8 H, MCH 30.5, MCHC 31.5 L, RDW 15.1, Plt Count 456 H D, MPV 9.1, Neut % (Auto) 95.3 H, Lymph % (Auto) 1.8 L, [place] % (Auto) 2.6, Eos % (Auto) 0.1, Baso % (Auto) 0.2, Neut # (Auto) 20.7 H, Lymph # (Auto) 0.4 L, [place] # (Auto) 0.6, Eos # (Auto) 0.0, Baso # (Auto) 0.0, Total Counted 100, Neutrophils % (Manual) 96 H, Lymphocytes % (Manual) 1 L, Monocytes % (Manual) 3, Platelet Estimate Normal, Hypochromasia 2+, Macrocytosis 1+ 02/17/21 04:45: Sodium 143, Potassium 4.8, Chloride 112 H, Carbon Dioxide 20 L, Anion Gap 15.8 H, BUN 37 H D, Creatinine 1.50 H D, Estimated Creat Clear 67, Estimated GFR 47 L, Est GFR ( Amer) 56 L D, Glucose 139 H, Calcium 8.3 L, Total Bilirubin 0.9, AST 44, ALT 28, Alkaline Phosphatase 169 H, Total Protein 6.0 L D, Albumin 2.6 L D, Globulin 3.4 H, Albumin/Globulin Ratio 0.8 L 02/17/21 06:00: Specimen Source Left radial, O2 % 100, ABG pH 7.10 L*, ABG pCO2 57.0 H, ABG pO2 58.2 L, ABG HCO3 17.5 L, ABG Total CO2 19.2 L, ABG O2 Saturation 86 L*, ABG Base Excess -12.1 L, Gilberto Test Acceptable, Vent Rate 22, Tidal Volume 440, PEEP 20 I & O for Last 24 hours: Intake & Output 02/14/21 02/15/21 02/16/21 02/17/21 23:59 23:59 23:59 23:59 Intake Total 3556.042 / 4301.042 4487.500 / 4487.500 2779.958 / 2779.958 1097.667 / 1097.667 Output Total 1105 / 1140 1195 / 1265 1975 / 2075 240 / 240 Balance 2451.042 / 3161.042 3292.500 / 3222.500 804.958 / 704.958 857.667 / 857.667 Weight 205 lb 3 oz 210 lb 218 lb 4 oz 220 lb 3.2 oz Microbiology Reports for the Last 24 Hours: Microbiology 02/16/21 21:10 Sputum - Endotracheal Tube Aspirate Gram Stain - Final 02/11/21 12:43 Blood Blood Culture - Final NO GROWTH AFTER 5 DAYS 02/11/21 12:43 Blood Blood Culture - Final NO GROWTH AFTER 5 DAYS - Constitutional mild distress, chronically ill appearing - *Routine HEENT Exam Head: Present: normocephalic Eye: Present: EOMI ENT: Present: mucous membranes moist - *Routine Neck Exam Present: trachea midline. Absent: tracheal deviation - *Routine Respiratory Exam Present: patient mechanically ventilated, crackles - *Routine Cardiovascular Exam Present: RRR - *Routine Abdominal Exam Present: soft, normoactive bowel sounds. Absent: tenderness, distended - *Routine Extremities Exam Present: pulses intact. Absent: cyanosis, clubbing - *Routine Skin Exam Present: intact, dry, warm. Absent: cyanosis, erythema - *Routine Neurological Exam Present: altered mental status Sedated - Routine Psychiatric Exam Present: unable to assess Comments: Sedated Assessment and Plan (1) COVID-19 with pulmonary comorbidity Status: Acute Category: Medical Code(s): U07.1 - COVID-19; J98.4 - Other disorders of lung (2) Obesity (B
--- NOTE | 2021-02-17 09:12 | HMH.PULMPN ---
Internal Medicine - PN: Subj *Date: 02/17/21 *Time: 16:59 Interval history: Patient nocturnal desaturations overnight. Exam - Constitutional Constitutional:: Absent: no acute distress, comfortable - HENMT Exam HENMT: Present: normocephalic, atraumatic - Eye Exam Eyes:: Present: normal appearance both eyes and related structures - Neck Exam Neck:: Present: normal visual inspection - Respiratory Exam Respiratory:: Present: respiratory distress, crackles - Cardiovascular Exam Cardiac:: Present: S1, S2 - GI Exam GI:: Present: soft, distended - Skin Exam Skin: Present: warm - Neurological Exam Neurological: Absent: alert, awake, normal cognition - Extremities Exam Extremities: Present: no cyanosis, no clubbing, edema Assessment and Plan (1) COVID-19 with pulmonary comorbidity Status: Acute Category: Medical Code(s): U07.1 - COVID-19; J98.4 - Other disorders of lung (2) Obesity (BMI 30-39.9) Status: Acute Category: Medical Code(s): E66.9 - Obesity, unspecified (3) Acute respiratory failure due to COVID-19 Status: Acute Category: Medical Code(s): U07.1 - COVID-19; J96.00 - Acute respiratory failure, unspecified whether with hypoxia or hypercapnia (4) Hypothyroidism Status: Acute Qualifiers: Hypothyroidism type: acquired Qualified Code(s): E03.9 - Hypothyroidism, unspecified Category: Medical Code(s): E03.9 - Hypothyroidism, unspecified (5) Schizophrenia Status: Acute Qualifiers: Schizophrenia type: unspecified Qualified Code(s): F20.9 - Schizophrenia, unspecified Category: Medical Code(s): F20.9 - Schizophrenia, unspecified - Assessment and plan all Dx Assessment and Plan for all problems:: #COVID-19 pneumonia history: #Acute hypoxic respiratory failure: Mr. Macias is a 70-year-old male recently admitted to hospital in early January for a fall and found to be COVID-19 positive on 01/27/21 during which received remdesivir for 2 days while inpatient was discharged home on doxycycline presented to the hospital worsening respiratory failure. CTA on his most recent admission did not show any evidence of pulmonary embolism. Chest x-ray from admission compared to from his prior admission showed worsening left upper lobe and lower lobe groundglass opacities along with right middle lobe patchy airspace disease. Patient on presentation found to be severely hypoxic tachypneic eventually needing mechanical ventilatory support. Plan: - Continue AnalgoSedation with Propofol and Fentanyl -wean sedation as tolerated with CPOT goal less than or euqal to 2 and RASS goal of 1 to 2 - VAP bundle Elevate head of the bed at 30 to 45 degrees Oral care with chlorhexidne GI ulcer prophylaxis - Famotidine 20mg IV BID Chemical DVT prophylaxis Continue current mechanical ventilatory support. Blood gas from this morning showed worsening hypercarbia and mixed respiratory and metabolic acidosis. Renal function slightly worsened from yesterday. We will closely monitor. Chest x-ray remained stable. 2 L LR bolus. Will continue cefepime for total of 7 days. Tracheal aspirate and nasal MRSA PCR negative. Blood culture from 02/11 no growth 48 hours. Worsening leukocytosis with continued febrile episodes. Follow repeat blood cultures tracheal aspirate and urine cultures from 02/16 which were obtained continue owing to continued febrile episodes. No evidence of DVT /PE Continue dexamethasone Significantly worsening leukocytosis now at 21.7. Febrile episodes. We will continue to monitor. Abdomen soft nontender. Renal function worsening with mixed metabolic and respiratory acidosis. Will initiate bicarb tabs. Will monitor renal function closely. #Thank for involving pulmonary in this patient care. We will continue to follow.
--- NOTE | 2021-02-17 10:49 | PC.NURSE ---
Dr. Becker performing bronchoscopy @ [facility]. OR staff in attendance
--- NOTE | 2021-02-17 10:55 | CA_ITS ---
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 Technically difficult and limited study was performed. 2. Mild biatrial enlargement, normal left ventricular size, visually estimated left ventricular ejection fraction 55% with no obvious regional wall motion abnormality in the obtained views. 3. Mildly enlarged right ventricle with normal contractility 4. No significant pericardial effusion noted. 5. This study is inadequate for assessment of valvular abnormalities. Electronically signed by : Erick Collado MD 02/17/2021 19:23:47
--- NOTE | 2021-02-17 17:03 | XR_ITS ---
PROCEDURE: XR CHEST PORTABLE CLINICAL HISTORY: resp failure Covid19 pneumonia COMPARISON: CT CT ANGIO CHEST PE PROTOCOL from 02/13/2021 CR XR CHEST PORTABLE from 02/16/2021 CR XR CHEST PORTABLE from 02/16/2021 CR XR CHEST PORTABLE from 02/17/2021 FINDINGS: 1708 hours. Endotracheal tube is present with the tip 2.7 cm above the chester. Nasogastric tube tip not visible on the image but below the diaphragm. Right subclavian central venous line tip in the region the SVC. Normal heart size. There is diffuse ground-glass opacification of the right upper and right lower lobe and left lower lobe consistent with bilateral pneumonia slightly worse. Subcutaneous emphysema is present in the left supraclavicular region. Lucency noted along the right lateral aspect of the trachea and in the left aortopulmonic window area suspicious for pneumomediastinum. Vicenta in ICU notified of these findings by telephone 5:36 p.m. 02/17/2021 IMPRESSION: Interval development of pneumomediastinum and subcutaneous emphysema. No evidence of pneumothorax. Tubes and lines are in satisfactory position Slight worsening of bilateral pneumonia Dictated by: Gilberto Cortes MD 02/17/2021 17:37 Gilberto Cortes MD in OV 02/17/2021 17:37
--- NOTE | 2021-02-17 17:42 | PC.NURSE ---
received call from Dr. Cortes reporting the following: subcu air left clavicular area, pneumo mediastinum, no pneumothorax. Dr. Becker notified. No new orders received.
[2021-02-18] VITALS (41 sets, daily range): BP systolic 93–156; BP diastolic 56–76; PULSE 93–112; RESP 20–28; TEMP 37.1–37.6; O2SAT 91–95; BMI 35.3
--- NOTE | 2021-02-18 06:00 | XR_ITS ---
PROCEDURE INFORMATION: Exam: XR Chest Exam date and time: 02/18/2021 6:00 AM Age: 70 years old Clinical indication: Device placement; Ett placement (vent status); Patient HX: Covid; Additional info: Intubation TECHNIQUE: Imaging protocol: XR of the chest. Views: 1 view. COMPARISON: CR XR CHEST PORTABLE 02/17/2021 5:08 PM FINDINGS: Tubes, catheters and devices: Endotracheal tube, feeding tube, and central venous catheter. The endotracheal tube terminates 3.5 cm above the chester. Lungs: Interstitial and asymmetric airspace disease in the setting of reported COVID-19 pneumonitis. Pleural spaces: Questionable small right pleural effusion. Heart/Mediastinum: No cardiomegaly. Bones/joints: Degenerative change. IMPRESSION: Interstitial and asymmetric airspace disease in the setting of reported COVID-19 pneumonitis.
--- NOTE | 2021-02-18 06:20 | PC.NURSE ---
unable to draw labs from patient's central line. all 3 lumens flushed well, but no blood draw back. pt's labs drawn via butterfly from right hand.
[2021-02-18 06:40] LABS: Basophils # 0.1 K/mm3 (0-0.2); Basophils % 0.3 % (0.1-2.0); Eosinophils % 0.1 % (0.1-12.0); Hematocrit 50.1 % (42.0-52.0); Hemoglobin 15.2 g/dL (14.1-18.0); Lymphocytes # 0.5 K/mm3 (0.7-4.5); Lymphocytes % 2.7 % (10-50); Mean Corpuscular HGB Conc 30.4 g/dL (31.8-35.4); Mean Corpuscular Hemoglobin 29.7 pg (27.0-31.2); Mean Corpuscular Volume 97.7 fl (80-94); Mean Platelet Volume 9.4 fl (7.4-10.4); Monocytes # 0.7 K/mm3 (0.1-1.0); Monocytes % 4.1 % (1.7-9.3); Neutrophils # 16.3 K/mm3 (1.8-7.8); Neutrophils % 92.9 % (37.0-80.0); Platelet Count 418 K/mm3 (142-424); Red Blood Count 5.13 M/mm3 (4.60-6.20); Red Cell Distribution Width 15.3 % (11.5-17.5); White Blood Count 17.5 K/mm3 (4.8-10.8)
[2021-02-18 06:43] LABS: MANUAL DIFFERENTIAL MANUAL DIFFERENTIAL (MANUAL DIFF)
[2021-02-18 06:56] LABS: Alanine Aminotransferase 21 U/L (12-78); Albumin Level 2.7 g/dl (3.5-5.0); Albumin/Globulin Ratio 0.7 (1.1-1.8); Alkaline Phosphatase 156 U/L (38-126); Anion Gap 22.2 mEq/L (5-15); Aspartate Amino Transferase 45 U/L (17-59); Blood Urea Nitrogen 57 mg/dl (9-20); Calcium 8.5 mg/dl (8.4-10.2); Carbon Dioxide 11 mmol/L (22.0-30.0); Chloride 112 mmol/L (98-107); Creatinine Clearance Estimated 26 mL/min (50-200); Estimated Glomerular Filt Rate 15 ml/min (>60); GFR (African American) 19 ML/MIN (>60); Globulin 3.7 g/dL (1.3-3.2); Glucose 113 mg/dl (74-100); Sodium 139 mmol/L (136-145); Total Protein,Serum 6.4 g/dl (6.3-8.2)
[2021-02-18 07:43] LABS: ABG Base Excess -16.7 mmol/L (-2.4-2.3); ABG Oxygen Saturation 96 % (90-100); ABG PO2 93.3 mmhg (80-100); ABG TCO2 15.7 mmhg (23-27); Allen's Test Patient Unable; Lactate Arterial 1.7 mmol/L (0.4-2.0); Oxygen 100 %; PEEP 20; Source Right Radial; Tidal Volume 440; Vent Rate 22
[2021-02-18 07:45] LABS: ABG PH 7.03 mmol/L (7.35-7.45)
[2021-02-18 07:53] LABS: Potassium 6.2 mmoL/L (3.5-5.1)
[2021-02-18 08:27] LABS: Hypochromasia 3+; Lymphocytes % 5 % (10-50); Macrocytosis 1+; Monocytes % 4 % (2-9); Neutrophils % 91 % (42-76); Nucleated Red Blood Cells 2; Platelet Estimate Normal; Total Cells Counted 100
--- NOTE | 2021-02-18 09:11 | HMH.PULMPN ---
Internal Medicine - PN: Subj *Date: 02/18/21 *Time: 14:11 Interval history: No acute respiratory events overnight. Patient did not function continued to worse. Exam - Constitutional Constitutional:: Absent: no acute distress, comfortable - HENMT Exam HENMT: Present: normocephalic - Eye Exam Eyes:: Present: normal appearance both eyes and related structures - Neck Exam Neck:: Present: normal visual inspection - Respiratory Exam Respiratory:: Present: respiratory distress, crackles, rhonchi - Cardiovascular Exam Cardiac:: Present: S1, S2 - GI Exam GI:: Present: soft - Neurological Exam Neurological: Absent: alert, awake, normal cognition - Extremities Exam Extremities: Present: edema Assessment and Plan (1) COVID-19 with pulmonary comorbidity Status: Acute Category: Medical Code(s): U07.1 - COVID-19; J98.4 - Other disorders of lung (2) Obesity (BMI 30-39.9) Status: Acute Category: Medical Code(s): E66.9 - Obesity, unspecified (3) Acute respiratory failure due to COVID-19 Status: Acute Category: Medical Code(s): U07.1 - COVID-19; J96.00 - Acute respiratory failure, unspecified whether with hypoxia or hypercapnia (4) Hypothyroidism Status: Acute Qualifiers: Hypothyroidism type: acquired Qualified Code(s): E03.9 - Hypothyroidism, unspecified Category: Medical Code(s): E03.9 - Hypothyroidism, unspecified (5) Schizophrenia Status: Acute Qualifiers: Schizophrenia type: unspecified Qualified Code(s): F20.9 - Schizophrenia, unspecified Category: Medical Code(s): F20.9 - Schizophrenia, unspecified - Assessment and plan all Dx Assessment and Plan for all problems:: #COVID-19 pneumonia history: #Acute hypoxic respiratory failure: Mr. Macias is a 70-year-old male recently admitted to hospital in early January for a fall and found to be COVID-19 positive on 01/27/21 during which received remdesivir for 2 days while inpatient was discharged home on doxycycline presented to the hospital worsening respiratory failure. CTA on his most recent admission did not show any evidence of pulmonary embolism. Chest x-ray from admission compared to from his prior admission showed worsening left upper lobe and lower lobe groundglass opacities along with right middle lobe patchy airspace disease. Patient on presentation found to be severely hypoxic tachypneic eventually needing mechanical ventilatory support. Plan: - Continue AnalgoSedation with Propofol and versed -wean sedation as tolerated with CPOT goal less than or euqal to 2 and RASS goal of 1 to 2 - VAP bundle Elevate head of the bed at 30 to 45 degrees Oral care with chlorhexidne GI ulcer prophylaxis - Famotidine 20mg IV BID Chemical DVT prophylaxis Continue current mechanical ventilatory support. Blood gas from this morning showed worsening hypercarbia and mixed respiratory and metabolic acidosis. Renal function slightly worsened from yesterday. We will increase respiratory rate 26 and tidal volume to 460. Continued to remain on high PEEP and 100% FiO2. Will continue cefepime for total of 10 days. Tracheal aspirate and nasal MRSA PCR negative. Blood culture from 02/11 no growth 48 hours. Worsening leukocytosis with continued febrile episodes. Follow repeat blood cultures tracheal aspirate and urine cultures from 02/16 which were obtained so far negative. Bronchial aspirate from 02/17 gram-positive diplococci. We will continue cefepime. No evidence of DVT /PE on admission Change Dex to Hydrocortisone Hemodynamically unstable. Shock continue to worsen. On vasopressor support. We will continue Levophed and will initiate vasopressin. Echocardiogram showed estimated EF of 55% with no obvious regional wall abnormalities. Slight improvement in leukocytosis. We will closely monitor. Abdomen soft nontender. Significantly worsening renal function, creatinine now at 3.9 with a K of 6.2. Worsening
--- NOTE | 2021-02-18 09:38 | HMH.ACPN2 ---
Internal Medicine - PN: Subj *Date: 02/18/21 *Time: 21:30 Interval history: 70-year-old male patient lying in bed intubated and sedated. Current vent settings AC 22/440/100 +20 he does appear more overall edematous today, Levophed infusing Exam Vital signs and Labs for Last 24 Hours: Temp Pulse Resp BP Pulse Ox 98.9 F 107 H 24 109/60 L 91 L 02/18/21 09:12 02/18/21 09:12 02/18/21 09:12 02/18/21 09:12 02/18/21 09:12 Laboratory Results - last 24 hr 02/18/21 06:15: WBC 17.5 H, RBC 5.13 D, Hgb 15.2, Hct 50.1, MCV 97.7 H, MCH 29.7, MCHC 30.4 L, RDW 15.3, Plt Count 418, MPV 9.4, Neut % (Auto) 92.9 H, Lymph % (Auto) 2.7 L, [place] % (Auto) 4.1, Eos % (Auto) 0.1, Baso % (Auto) 0.3, Neut # (Auto) 16.3 H, Lymph # (Auto) 0.5 L, [place] # (Auto) 0.7, Eos # (Auto) 0.0, Baso # (Auto) 0.1, Total Counted 100, Neutrophils % (Manual) 91 H, Lymphocytes % (Manual) 5 L, Monocytes % (Manual) 4, Nucleated RBCs 2, Platelet Estimate Normal, Hypochromasia 3+, Macrocytosis 1+ 02/18/21 06:15: Sodium 139, Potassium 6.2 H* D, Chloride 112 H, Carbon Dioxide 11 L, Anion Gap 22.2 H, BUN 57 H D, Creatinine 3.90 H D, Estimated Creat Clear 26, Estimated GFR 15 L*, Est GFR ( Amer) 19 L* D, Glucose 113 H, Calcium 8.5, Total Bilirubin 1.0, AST 45, ALT 21, Alkaline Phosphatase 156 H, Total Protein 6.4, Albumin 2.7 L, Globulin 3.7 H, Albumin/Globulin Ratio 0.7 L 02/18/21 06:52: Specimen Source Right radial, O2 % 100, ABG pH 7.03 L*, ABG pCO2 54.0 H, ABG pO2 93.3, ABG HCO3 14.0 L, ABG Total CO2 15.7 L, ABG O2 Saturation 96, ABG Base Excess -16.7 L, Gilberto Test Patient unable, ABG Lactate 1.7, Vent Rate 22, Tidal Volume 440, PEEP 20 I & O for Last 24 hours: Intake & Output 02/15/21 02/16/21 02/17/21 02/18/21 23:59 23:59 23:59 23:59 Intake Total 4487.500 / 4487.500 2779.958 / 2779.958 2985.167 / 2985.167 Output Total 1195 / 1265 1975 / 2075 710 / 710 0 / 0 Balance 3292.500 / 3222.500 804.958 / 425.557 9414.167 / 2275.167 Weight 210 lb 218 lb 4 oz 220 lb 3.2 oz 220 lb Microbiology Reports for the Last 24 Hours: Microbiology 02/17/21 10:55 Aspirate - Pulmonary Gram Stain - Final - Constitutional chronically ill appearing Comments: Sedated - *Routine HEENT Exam Head: Present: normocephalic Eye: Present: EOMI ENT: Present: mucous membranes moist - *Routine Neck Exam Present: trachea midline. Absent: tracheal deviation - *Routine Respiratory Exam Present: patient mechanically ventilated, crackles - *Routine Cardiovascular Exam Present: RRR - *Routine Abdominal Exam Present: soft, normoactive bowel sounds. Absent: rigid - *Routine Extremities Exam Present: edema, pulses intact. Absent: cyanosis - *Routine Skin Exam Present: intact, dry. Absent: cyanosis, erythema - *Routine Neurological Exam Present: altered mental status Sedated - Routine Psychiatric Exam Present: unable to assess Comments: Sedated Assessment and Plan (1) COVID-19 with pulmonary comorbidity Status: Acute Category: Medical Code(s): U07.1 - COVID-19; J98.4 - Other disorders of lung (2) Obesity (BMI 30-39.9) Status: Acute Category: Medical Code(s): E66.9 - Obesity, unspecified (3) Acute respiratory failure due to COVID-19 Status: Acute Category: Medical Code(s): U07.1 - COVID-19; J96.00 - Acute respiratory failure, unspecified whether with hypoxia or hypercapnia (4) Hypothyroidism Status: Acute Qualifiers: Hypothyroidism type: acquired Qualified Code(s): E03.9 - Hypothyroidism, unspecified Category: Medical Code(s): E03.9 - Hypothyroidism, unspecified (5) Schizophrenia Status: Acute Qualifiers: Schizophrenia type: unspecified Qualified Code(s): F20.9 - Schizophrenia, unspecified Category: Medical Code(s): F20.9 - Schizophrenia, unspecified (6) Obesity (BMI 30-39.9) Status: Acute Category: Medical Code(s): E66.9 - Obesity, unspecified (7) Hypoxia Stat
--- NOTE | 2021-02-18 14:12 | XR_ITS ---
PROCEDURE: XR ABDOMEN W OBLIQUE CLINICAL INDICATION: Pain and distention COMPARISON: CT CT ANGIO CHEST PE PROTOCOL from 02/13/2021 FINDINGS: Nasogastric tube tip is in the region of the body of the stomach. Mendoza catheter is present. There is diffuse hazy appearance of the abdomen which could be due to anasarca or ascites versus portable radiographic technique. No evidence of bowel obstruction. Left lateral decubitus exam shows no obvious free air. No acute bony anomalies. IMPRESSION: NG tube tip in body of the stomach. Diffuse haziness of the abdomen and pelvis which could be due to anasarca, ascites, or radiographic technique No evidence of intestinal obstruction or free air. Dictated by: Gilberto Cortes MD 02/18/2021 15:42 Gilberto Cortes MD in [facility] 02/18/2021 15:42
[2021-02-18 14:27] LABS: Lipase 59 U/L (23-300)
[2021-02-19] VITALS (31 sets, daily range): BP systolic 100–151; BP diastolic 52–84; PULSE 80–172; RESP 26–36; TEMP 36.8–38; O2SAT 81–99
--- NOTE | 2021-02-19 06:00 | XR_ITS ---
PROCEDURE INFORMATION: Exam: XR Chest Exam date and time: 02/19/2021 6:00 AM Age: 70 years old Clinical indication: Device placement; Ett placement (vent status); Patient HX: Covid; Additional info: Intubation TECHNIQUE: Imaging protocol: XR of the chest. Views: 1 view. COMPARISON: CR XR CHEST PORTABLE 02/18/2021 5:17 AM FINDINGS: Limitations: Rotation - mild. Tubes, catheters and devices: Endotracheal tube, tip located approximately 3.8 cm from chester. Central venous catheter with tip projected over SVC. NG tube courses below diaphragm. Leads overlying chest. Lungs: Scattered moderate airspace opacities, likely unchanged allowing for difference in rotation, technique. Pleural spaces: Cannot exclude small pleural effusions. No pneumothorax. Heart/Mediastinum: No cardiomegaly. Bones/joints: No displaced fracture. Soft tissues: Unremarkable. IMPRESSION: Endotracheal tube, tip located approximately 3.8 cm from chester.
[2021-02-19 07:05] LABS: Basophils % 0.2 % (0.1-2.0); Hematocrit 36.6 % (42.0-52.0); Lymphocytes # 0.6 K/mm3 (0.7-4.5); Lymphocytes % 3.5 % (10-50); Mean Corpuscular Hemoglobin 30.3 pg (27.0-31.2); Mean Corpuscular Volume 101.1 fl (80-94); Mean Platelet Volume 9.3 fl (7.4-10.4); Monocytes # 0.5 K/mm3 (0.1-1.0); Neutrophils # 14.8 K/mm3 (1.8-7.8); Neutrophils % 93.3 % (37.0-80.0); Platelet Count 501 K/mm3 (142-424); Red Blood Count 3.62 M/mm3 (4.60-6.20); Red Cell Distribution Width 15.5 % (11.5-17.5); White Blood Count 15.9 K/mm3 (4.8-10.8)
[2021-02-19 07:07] LABS: ABG Base Excess -18.2 mmol/L (-2.4-2.3); ABG HCO3 12.6 mmhg (22.0-26.0); ABG Oxygen Saturation 98 % (90-100); ABG PO2 138.9 mmhg (80-100); ABG TCO2 14.1 mmhg (23-27)
[2021-02-19 07:10] LABS: ABG PH 7.03 mmol/L (7.35-7.45)
[2021-02-19 07:15] LABS: Alanine Aminotransferase 21 U/L (12-78); Albumin Level 2.7 g/dl (3.5-5.0); Albumin/Globulin Ratio 0.7 (1.1-1.8); Alkaline Phosphatase 142 U/L (38-126); Anion Gap 24.4 mEq/L (5-15); Aspartate Amino Transferase 57 U/L (17-59); Bilirubin,Total 0.8 mg/dl (0.2-1.3); Calcium 8.4 mg/dl (8.4-10.2); Carbon Dioxide 13 mmol/L (22.0-30.0); Chloride 109 mmol/L (98-107); Globulin 3.7 g/dL (1.3-3.2); Glucose 174 mg/dl (74-100); Sodium 139 mmol/L (136-145); Total Protein,Serum 6.4 g/dl (6.3-8.2)
[2021-02-19 07:19] LABS: Allen's Test Patient Unable; Oxygen 100 %; PEEP 20; Source Right Radial; Tidal Volume 460; Vent Rate 26
[2021-02-19 07:21] LABS: Creatinine Clearance Estimated 18 mL/min (50-200); Estimated Glomerular Filt Rate 10 ml/min (>60); GFR (African American) 13 ML/MIN (>60)
[2021-02-19 07:26] LABS: MANUAL DIFFERENTIAL MANUAL DIFFERENTIAL (MANUAL DIFF)
[2021-02-19 07:45] LABS: Blood Urea Nitrogen 86 mg/dl (9-20); Potassium 7.4 mmoL/L (3.5-5.1)
[2021-02-19 07:57] LABS: Hypochromasia 2+; Lymphocytes % 7 % (10-50); Macrocytosis 2+; Monocytes % 2 % (2-9); Neutrophils % 91 % (42-76); Nucleated Red Blood Cells 2; Platelet Estimate Normal; Total Cells Counted 100
--- NOTE | 2021-02-19 08:18 | PC.NURSE ---
0750 D Jimena was notified face to face of pt abg and critical labs. k+ 7.4 BUN 86 Cre 5.50
--- NOTE | 2021-02-19 08:47 | HMH.ACPN2 ---
Internal Medicine - PN: Subj *Date: 02/19/21 *Time: 20:58 Interval history: 70-year-old male patient lying in bed intubated and sedated. Current vent settings AC 26/460/100+20, Levophed and vasopressin infusing. He does have increased subcutaneous emphysema in his neck area, he also has increased generalized edema as well as a very low urinary output. Potassium this morning 7.4, BUN 86, creatinine 5.5. Nursing reports talking to patient's brother last night notifying brother of grave condition and brother reports he will be in 2-day. Upon arrival will discuss patient's condition, probable outcomes, and CODE STATUS. Exam Vital signs and Labs for Last 24 Hours: Temp Pulse Resp BP Pulse Ox 98.9 F 107 H 36 H 139/79 90 L 02/19/21 14:16 02/19/21 14:16 02/19/21 14:16 02/19/21 14:16 02/19/21 14:16 Laboratory Results - last 24 hr 02/19/21 06:00: Specimen Source Right radial, O2 % 100, ABG pH 7.03 L*, ABG pCO2 49.0 H, ABG pO2 138.9 H, ABG HCO3 12.6 L, ABG Total CO2 14.1 L, ABG O2 Saturation 98, ABG Base Excess -18.2 L, Gilberto Test Patient unable, Vent Rate 26, Tidal Volume 460, PEEP 20 02/19/21 06:00: WBC 15.9 H, RBC 3.62 L D, Hgb 11.0 L D, Hct 36.6 L, MCV 101.1 H, MCH 30.3, MCHC 30.0 L, RDW 15.5, Plt Count 501 H, MPV 9.3, Neut % (Auto) 93.3 H, Lymph % (Auto) 3.5 L, [place] % (Auto) 3.0, Eos % (Auto) 0.0 L, Baso % (Auto) 0.2, Neut # (Auto) 14.8 H, Lymph # (Auto) 0.6 L, [place] # (Auto) 0.5, Eos # (Auto) 0.0, Baso # (Auto) 0.0, Total Counted 100, Neutrophils % (Manual) 91 H, Lymphocytes % (Manual) 7 L, Monocytes % (Manual) 2, Nucleated RBCs 2, Platelet Estimate Normal, Hypochromasia 2+, Macrocytosis 2+ 02/19/21 06:00: Sodium 139, Potassium 7.4 H*, Chloride 109 H, Carbon Dioxide 13 L, Anion Gap 24.4 H, BUN 86 H D, Creatinine 5.50 H D, Estimated Creat Clear 18, Estimated GFR 10 L*, Est GFR ( Amer) 13 L* D, Glucose 174 H D, Calcium 8.4, Total Bilirubin 0.8, AST 57 D, ALT 21, Alkaline Phosphatase 142 H, Total Protein 6.4, Albumin 2.7 L, Globulin 3.7 H, Albumin/Globulin Ratio 0.7 L 02/19/21 10:46: Sodium 139, Potassium 7.4 H*, Chloride 110 H, Carbon Dioxide 11 L, Anion Gap 25.4 H, BUN 91 H, Creatinine 5.80 H, Estimated Creat Clear 17, Estimated GFR 10 L*, Est GFR ( Amer) 12 L*, Glucose 183 H, Calcium 8.3 L I & O for Last 24 hours: Intake & Output 02/16/21 02/17/21 02/18/21 02/19/21 23:59 23:59 23:59 23:59 Intake Total 2779.958 / 2779.958 2985.167 / 2985.167 1314.477 / 1675.477 527.333 / 527.333 Output Total 1974 710 / 710 105 / 105 0 / 0 Balance 804.958 / 824.566 0143.167 / 2275.167 1209.477 / 1570.477 527.333 / 527.333 Weight 218 lb 4 oz 220 lb 3.2 oz 220 lb Microbiology Reports for the Last 24 Hours: Microbiology 02/17/21 10:55 Aspirate - Pulmonary Gram Stain - Final 02/17/21 10:55 Aspirate - Pulmonary Bronchial Aspirate Culture - Preliminary Gram Positive Cocci 02/16/21 21:12 Blood Blood Culture - Preliminary NO GROWTH AFTER 48 HOURS 02/16/21 21:12 Blood Blood Culture - Preliminary NO GROWTH AFTER 48 HOURS 02/16/21 21:10 Sputum - Endotracheal Tube Aspirate Gram Stain - Final 02/16/21 21:10 Sputum - Endotracheal Tube Aspirate Sputum Culture - Preliminary - Constitutional mild distress, chronically ill appearing Comments: Sedated - *Routine HEENT Exam Head: Present: normocephalic Eye: Present: EOMI ENT: Present: mucous membranes moist - *Routine Neck Exam Present: trachea midline, tracheal deviation Comments: Subcutaneous emphysema neck - *Routine Respiratory Exam Present: patient mechanically ventilated, crackles - *Routine Cardiovascular Exam Present: RRR - *Routine Abdominal Exam Present: soft, normoactive bowel sounds, distended, firm - *Routine Extremities Exam Present: edema. Absent: cyanosis Comments: Pulses with Doppler - *Routine Skin Exam Present: intact,
--- NOTE | 2021-02-19 09:17 | HMH.PULMPN ---
Internal Medicine - PN: Subj *Date: 02/19/21 *Time: 13:29 Interval history: No acute respiratory events overnight. Patient renal function continued to worsen. Exam - Constitutional Constitutional:: Present: comfortable - HENMT Exam HENMT: Present: normocephalic, atraumatic - Eye Exam Eyes:: Present: normal appearance both eyes and related structures - Neck Exam Neck:: Present: normal visual inspection - Respiratory Exam Respiratory:: Present: crackles. Absent: wheezing - Cardiovascular Exam Cardiac:: Present: S1, S2 - GI Exam GI:: Present: soft - Skin Exam Skin: Present: no rash - Neurological Exam Neurological: Absent: alert, awake, normal cognition - Extremities Exam Extremities: Present: no cyanosis, no clubbing, edema Assessment and Plan (1) COVID-19 with pulmonary comorbidity Status: Acute Category: Medical Code(s): U07.1 - COVID-19; J98.4 - Other disorders of lung (2) Obesity (BMI 30-39.9) Status: Acute Category: Medical Code(s): E66.9 - Obesity, unspecified (3) Acute respiratory failure due to COVID-19 Status: Acute Category: Medical Code(s): U07.1 - COVID-19; J96.00 - Acute respiratory failure, unspecified whether with hypoxia or hypercapnia (4) Hypothyroidism Status: Acute Qualifiers: Hypothyroidism type: acquired Qualified Code(s): E03.9 - Hypothyroidism, unspecified Category: Medical Code(s): E03.9 - Hypothyroidism, unspecified (5) Schizophrenia Status: Acute Qualifiers: Schizophrenia type: unspecified Qualified Code(s): F20.9 - Schizophrenia, unspecified Category: Medical Code(s): F20.9 - Schizophrenia, unspecified (6) Obesity (BMI 30-39.9) Status: Acute Category: Medical Code(s): E66.9 - Obesity, unspecified (7) Hypoxia Status: Acute Category: Medical Code(s): R09.02 - Hypoxemia - Assessment and plan all Dx Assessment and Plan for all problems:: #COVID-19 pneumonia history: #Acute hypoxic respiratory failure: Mr. Macias is a 70-year-old male recently admitted to hospital in early January for a fall and found to be COVID-19 positive on 01/27/21 during which received remdesivir for 2 days while inpatient was discharged home on doxycycline presented to the hospital worsening respiratory failure. CTA on his most recent admission did not show any evidence of pulmonary embolism. Chest x-ray from admission compared to from his prior admission showed worsening left upper lobe and lower lobe groundglass opacities along with right middle lobe patchy airspace disease. Patient on presentation found to be severely hypoxic tachypneic eventually needing mechanical ventilatory support. Overall since admission patient respiratory status remained stable needing high ventilator settings but unfortunately patient also encountered a concurrent cold patient's current clinical condition, plan of care and associated morbidity and mortality benefits and wounds were explained to patient's brother Mr. Chepe Macias who is the next of kin and POA. Mr. Mo after expressing his complete understanding of the current clinical situation and expressed that Mr. Danial Macias always expressed his wishes to peacefully and do not want any aggressive care. Mr. Mo made MrJessica Macias, DNR. We will continue current resuscitative efforts at this point of time respecting patient's DNR status. Plan: - Continue AnalgoSedation with Propofol and versed -wean sedation as tolerated with CPOT goal less than or euqal to 2 and RASS goal of 1 to 2 - VAP bundle Elevate head of the bed at 30 to 45 degrees Oral care with chlorhexidne GI ulcer prophylaxis - Famotidine 20mg IV BID Chemical DVT prophylaxis Continue current mechanical ventilatory support. ABG from this morning showed improving hypercarbia however worsening metabolic acidosis. Oxygenation improved. Renal function continued to worsen. Will continue cefepime for total of 10 days. Trache
--- NOTE | 2021-02-19 10:38 | ECG_ITS ---
APPROVED REPORT Exam: Resting ECG HR:103 bpm ECG Measurements Heart Rate 103 AXES TN 158 P 16 QRSd 84 QRS 40 QT 354 T 4 QTc 463 Conclusion Sinus tachycardia Low voltage QRS Nonspecific ST and T wave abnormality Abnormal ECG Electronically signed by : Jayme Fregoso MD 02/20/2021 17:38:32
--- NOTE | 2021-02-19 10:49 | PC.NURSE ---
Addendum entered by Josette Cabrera RN 02/20/21 10:38: late entry: since pt brother made pt a DNR, pt will no longer need a transfer. Original Note: 0925 verbal order at bedside with Dr Becker, order BMP, arrange for transfer, EKG and decrease sedation by half. scan the bladder for urine pt settings changed. peep down to 18 fio2 80 1000 bladder scan shows only 2 ml of urine in bladder. 1005 pt began to desat to the upper 80's, pt brother arrived at bedside to visit with pt. sat had to be increased back to 90. 1015 brother who is next of kin made pt a dnr. changes fio2 100 peep 22
[2021-02-19 11:03] LABS: Chloride 110 mmol/L (98-107); Sodium 139 mmol/L (136-145)
[2021-02-19 11:07] LABS: Anion Gap 25.4 mEq/L (5-15); Calcium 8.3 mg/dl (8.4-10.2); Carbon Dioxide 11 mmol/L (22.0-30.0); Glucose 183 mg/dl (74-100)
[2021-02-19 11:14] LABS: Creatinine Clearance Estimated 17 mL/min (50-200); Estimated Glomerular Filt Rate 10 ml/min (>60); GFR (African American) 12 ML/MIN (>60)
[2021-02-19 11:17] LABS: Blood Urea Nitrogen 91 mg/dl (9-20); Potassium 7.4 mmoL/L (3.5-5.1)
--- NOTE | 2021-02-19 18:28 | ECG_ITS ---
APPROVED REPORT Exam: Resting ECG HR:148 bpm ECG Measurements Heart Rate 148 AXES QRSd 136 QRS 73 QT 318 T -30 QTc 499 Conclusion Atrial fibrillation with rapid ventricular response Right bundle branch block T wave abnormality, consider inferior ischemia or digitalis effect Abnormal ECG Electronically signed by : Jayme Fregoso MD 02/20/2021 17:37:08
--- NOTE | 2021-02-19 18:49 | PC.NURSE ---
[address] ruiz that pt was in afib with rvr. order recieved for bolus of cardizem 15mg. place on cardizem drip at 10 if needed for rate less than 100
[2021-02-20] VITALS (21 sets, daily range): BP systolic 69–134; BP diastolic 32–77; PULSE 42–149; RESP 12–36; TEMP 37.3–38.2; O2SAT 0–125; BMI 37.8
--- NOTE | 2021-02-20 01:25 | PC.NURSE ---
0110 Pt noted to desat low to mid 80s. RT notified. 0118 MD Byers paged [phone] Notified of pt O2 sats and additional VS and gtts. 0124 Family notified of pt status. Family stated to notify them when pt passes and that they have chosen [facility].
--- NOTE | 2021-02-20 03:16 | ECG_ITS ---
APPROVED REPORT Exam: Resting ECG HR:96 bpm ECG Measurements Heart Rate 96 AXES NC 114 P -41 QRSd 100 QRS 67 QT 300 T -51 QTc 379 Conclusion Unusual P axis, possible ectopic atrial rhythm Low voltage QRS Incomplete right bundle branch block Nonspecific ST and T wave abnormality Abnormal ECG Electronically signed by : Jayme Fregoso MD 02/20/2021 17:34:45
--- NOTE | 2021-02-20 03:35 | PC.NURSE ---
Pt noted to convert to NSR. EKG was obtained and read by MD Lora. Pt was weaned off Diltiazem gtt per .
--- NOTE | 2021-02-20 06:08 | ECG_ITS ---
APPROVED REPORT Exam: Resting ECG HR:128 bpm ECG Measurements Heart Rate 128 AXES QRSd 112 QRS 71 QT 426 T 212 QTc 621 Conclusion Atrial fibrillation with rapid ventricular response Low voltage QRS Incomplete right bundle branch block Nonspecific ST and T wave abnormality Abnormal ECG Electronically signed by : Jayme Fregoso MD 02/20/2021 17:34:37
--- NOTE | 2021-02-20 06:15 | PC.NURSE ---
EKG this AM shows pt in Afib. Diltiazem gtt restarted. aware.
[2021-02-20 06:56] LABS: Basophils # 0.1 K/mm3 (0-0.2); Basophils % 0.4 % (0.1-2.0); Hematocrit 34.6 % (42.0-52.0); Hemoglobin 10.4 g/dL (14.1-18.0); Lymphocytes # 0.5 K/mm3 (0.7-4.5); Mean Corpuscular Hemoglobin 30.1 pg (27.0-31.2); Mean Corpuscular Volume 100.4 fl (80-94); Mean Platelet Volume 9.5 fl (7.4-10.4); Monocytes # 0.4 K/mm3 (0.1-1.0); Monocytes % 2.5 % (1.7-9.3); Neutrophils # 15.3 K/mm3 (1.8-7.8); Platelet Count 495 K/mm3 (142-424); Red Blood Count 3.45 M/mm3 (4.60-6.20); Red Cell Distribution Width 15.6 % (11.5-17.5); White Blood Count 16.2 K/mm3 (4.8-10.8)
[2021-02-20 06:59] LABS: MANUAL DIFFERENTIAL MANUAL DIFFERENTIAL (MANUAL DIFF)
[2021-02-20 07:04] LABS: ABG Base Excess -15.4 mmol/L (-2.4-2.3); ABG HCO3 14.4 mmhg (22.0-26.0); ABG Oxygen Saturation 84 % (90-100); ABG PO2 61.4 mmhg (80-100); ABG TCO2 15.8 mmhg (23-27)
[2021-02-20 07:06] LABS: Allen's Test Patient Unable; Oxygen 100 %; PEEP 22; Source Right Radial; Tidal Volume 460; Vent Rate 32
[2021-02-20 07:06] LABS: Alanine Aminotransferase 22 U/L (12-78); Albumin Level 2.7 g/dl (3.5-5.0); Albumin/Globulin Ratio 0.8 (1.1-1.8); Alkaline Phosphatase 142 U/L (38-126); Anion Gap 27.8 mEq/L (5-15); Aspartate Amino Transferase 38 U/L (17-59); Bilirubin,Total 0.9 mg/dl (0.2-1.3); Calcium 7.8 mg/dl (8.4-10.2); Carbon Dioxide 13 mmol/L (22.0-30.0); Chloride 107 mmol/L (98-107); Globulin 3.4 g/dL (1.3-3.2); Glucose 202 mg/dl (74-100); Sodium 141 mmol/L (136-145); Total Protein,Serum 6.1 g/dl (6.3-8.2)
[2021-02-20 07:07] LABS: ABG PH 7.09 mmol/L (7.35-7.45); Lactate Arterial 3.2 mmol/L (0.4-2.0)
[2021-02-20 07:12] LABS: Creatinine Clearance Estimated 14 mL/min (50-200); Estimated Glomerular Filt Rate 8 ml/min (>60); GFR (African American) 9 ML/MIN (>60)
[2021-02-20 07:20] LABS: Potassium 6.8 mmoL/L (3.5-5.1)
[2021-02-20 07:21] LABS: Blood Urea Nitrogen 105 mg/dl (9-20)
[2021-02-20 07:24] LABS: Hypochromasia 2+; Lymphocytes % 1 % (10-50); Macrocytosis 2+; Monocytes % 1 % (2-9); Neutrophils % 98 % (42-76); Nucleated Red Blood Cells 2; Platelet Estimate Normal; Total Cells Counted 100
--- NOTE | 2021-02-20 09:20 | HMH.PULMPN ---
Internal Medicine - PN: Subj *Date: 02/20/21 *Time: 12:49 Interval history: Patient respiratory clinical status continued to worsen. Exam - Constitutional Constitutional:: Absent: no acute distress, comfortable - HENMT Exam HENMT: Present: normocephalic - Neck Exam Neck:: Present: normal visual inspection - Respiratory Exam Respiratory:: Present: respiratory distress, crackles, rales - Cardiovascular Exam Cardiac:: Present: S1, S2. Absent: regular rhythm - GI Exam GI:: Present: soft, distended, firm - Skin Exam Skin: Present: no rash - Neurological Exam Neurological: Absent: alert, awake, normal cognition - Extremities Exam Extremities: Present: no cyanosis, edema Assessment and Plan (1) COVID-19 with pulmonary comorbidity Status: Acute Category: Medical Code(s): U07.1 - COVID-19; J98.4 - Other disorders of lung (2) Obesity (BMI 30-39.9) Status: Acute Category: Medical Code(s): E66.9 - Obesity, unspecified (3) Acute respiratory failure due to COVID-19 Status: Acute Category: Medical Code(s): U07.1 - COVID-19; J96.00 - Acute respiratory failure, unspecified whether with hypoxia or hypercapnia (4) Hypothyroidism Status: Acute Qualifiers: Hypothyroidism type: acquired Qualified Code(s): E03.9 - Hypothyroidism, unspecified Category: Medical Code(s): E03.9 - Hypothyroidism, unspecified (5) Schizophrenia Status: Acute Qualifiers: Schizophrenia type: unspecified Qualified Code(s): F20.9 - Schizophrenia, unspecified Category: Medical Code(s): F20.9 - Schizophrenia, unspecified (6) Obesity (BMI 30-39.9) Status: Acute Category: Medical Code(s): E66.9 - Obesity, unspecified (7) Hypoxia Status: Acute Category: Medical Code(s): R09.02 - Hypoxemia (8) Subcutaneous emphysema Status: Acute Category: Medical Code(s): T79.7XXA - Traumatic subcutaneous emphysema, initial encounter (9) COVID-19 virus infection Status: Acute Category: Medical Code(s): U07.1 - COVID-19 - Assessment and plan all Dx Assessment and Plan for all problems:: #COVID-19 pneumonia history: #Acute hypoxic respiratory failure: Mr. Macias is a 70-year-old male recently admitted to hospital in early January for a fall and found to be COVID-19 positive on 01/27/21 during which received remdesivir for 2 days while inpatient was discharged home on doxycycline presented to the hospital worsening respiratory failure. CTA on his most recent admission did not show any evidence of pulmonary embolism. Chest x-ray from admission compared to from his prior admission showed worsening left upper lobe and lower lobe groundglass opacities along with right middle lobe patchy airspace disease. Patient on presentation found to be severely hypoxic tachypneic eventually needing mechanical ventilatory support. Overall since admission patient respiratory status remained stable needing high ventilator settings but unfortunately patient also encountered a concurrent cold patient's current clinical condition, plan of care and associated morbidity and mortality benefits and wounds were explained to patient's brother Mr. Chepe Macias who is the next of kin and POA. Mr. Mo after expressing his complete understanding of the current clinical situation and expressed that Mr. Danial Macias always expressed his wishes to peacefully and do not want any aggressive care. Mr. Mo made MrJessica Macias, DNR. We will continue current resuscitative efforts at this point of time respecting patient's DNR status. Plan: - Continue AnalgoSedation with Propofol and versed -wean sedation as tolerated with CPOT goal less than or euqal to 2 and RASS goal of 1 to 2 - VAP bundle Elevate head of the bed at 30 to 45 degrees Oral care with chlorhexidne GI ulcer prophylaxis - Famotidine 20mg IV BID Chemical DVT prophylaxis Continue current mechanical ventilatory support. Blood gas from this morn
--- NOTE | 2021-02-20 09:37 | HMH.ACPN2 ---
Internal Medicine - PN: Subj *Date: 02/20/21 *Time: 10:34 Interval history: 70-year-old male patient resting in bed intubated and sedated. Long discussion with brother regarding patient's respiratory status and prognosis per pulmonology. Brother has decided to make patient a DNR. Patient went into A. fib yesterday Cardizem drip was started after several hours he converted to normal sinus rhythm and drip was stopped, several hours later A. fib resumed and Cardizem restarted. Potassium today is 6.8 BUN and creatinine are rising. Ventilator settings are AC 26/460/100 +22 he has been ordered scheduled Kayexalate and lactulose and is having bowel movements bicarb drip was started due to continuing acidosis. Abdomen today is firmer and more distended than yesterday and edema has worsened Exam Vital signs and Labs for Last 24 Hours: Temp Pulse Resp BP Pulse Ox 100.8 F H 149 H 30 H 130/77 81 L 02/20/21 04:00 02/20/21 09:00 02/20/21 09:00 02/20/21 09:00 02/20/21 09:00 Laboratory Results - last 24 hr 02/19/21 10:46: Sodium 139, Potassium 7.4 H*, Chloride 110 H, Carbon Dioxide 11 L, Anion Gap 25.4 H, BUN 91 H, Creatinine 5.80 H, Estimated Creat Clear 17, Estimated GFR 10 L*, Est GFR ( Amer) 12 L*, Glucose 183 H, Calcium 8.3 L 02/20/21 05:25: WBC 16.2 H, RBC 3.45 L, Hgb 10.4 L, Hct 34.6 L, MCV 100.4 H, MCH 30.1, MCHC 30.0 L, RDW 15.6, Plt Count 495 H, MPV 9.5, Neut % (Auto) 94.0 H, Lymph % (Auto) 3.0 L, [place] % (Auto) 2.5, Eos % (Auto) 0.0 L, Baso % (Auto) 0.4, Neut # (Auto) 15.3 H, Lymph # (Auto) 0.5 L, [place] # (Auto) 0.4, Eos # (Auto) 0.0, Baso # (Auto) 0.1, Total Counted 100, Neutrophils % (Manual) 98 H, Lymphocytes % (Manual) 1 L, Monocytes % (Manual) 1 L, Nucleated RBCs 2, Platelet Estimate Normal, Hypochromasia 2+, Macrocytosis 2+ 02/20/21 05:25: Sodium 141, Potassium 6.8 H*, Chloride 107, Carbon Dioxide 13 L, Anion Gap 27.8 H, BUN 105 H*, Creatinine 7.20 H D, Estimated Creat Clear 14, Estimated GFR 8 L*, Est GFR ( Amer) 9 L* D, Glucose 202 H, Calcium 7.8 L, Total Bilirubin 0.9, AST 38 D, ALT 22, Alkaline Phosphatase 142 H, Total Protein 6.1 L, Albumin 2.7 L, Globulin 3.4 H, Albumin/Globulin Ratio 0.8 L 02/20/21 06:00: Specimen Source Right radial, O2 % 100, ABG pH 7.09 L*, ABG pCO2 48.0 H, ABG pO2 61.4 L, ABG HCO3 14.4 L, ABG Total CO2 15.8 L, ABG O2 Saturation 84 L*, ABG Base Excess -15.4 L, Gilberto Test Patient unable, ABG Lactate 3.2 H, Vent Rate 32, Tidal Volume 460, PEEP 22 I & O for Last 24 hours: Intake & Output 02/17/21 02/18/21 02/19/21 02/20/21 23:59 23:59 23:59 23:59 Intake Total 2985.167 / 2985.167 1314.477 / 1540.337 4392.375 / 2514.375 1316.5 / 1316.5 Output Total 710 / 710 105 / 105 0 / 5 5 / 5 Balance 2275.167 / 2275.167 1209.477 / 7710.146 5214.375 / 2509.375 1311.5 / 1311.5 Weight 220 lb 3.2 oz 220 lb 235 lb Microbiology Reports for the Last 24 Hours: Microbiology 02/17/21 10:55 Aspirate - Pulmonary Gram Stain - Final 02/17/21 10:55 Aspirate - Pulmonary Bronchial Aspirate Culture - Preliminary Staphylococcus epidermidis 02/16/21 21:10 Sputum - Endotracheal Tube Aspirate Gram Stain - Final 02/16/21 21:10 Sputum - Endotracheal Tube Aspirate Sputum Culture - Preliminary - Constitutional no acute distress, chronically ill appearing - *Routine HEENT Exam Head: Present: normocephalic Eye: Present: EOMI ENT: Present: mucous membranes moist - *Routine Neck Exam Present: trachea midline. Absent: tracheal deviation - *Routine Respiratory Exam Present: patient mechanically ventilated, rhonchi, crackles - *Routine Cardiovascular Exam Present: RRR, irregular rhythm - *Routine Abdominal Exam Present: normoactive bowel sounds, distended, firm. Absent: soft - *Routine Extremities Exam Present: edema Comments: Pedal Pulses with doppler - *Routine Skin Exam Present: intact, dry - *Routine Neurological Exam Present: altered mental s
--- NOTE | 2021-02-20 10:39 | PC.NURSE ---
morning meds held at this itme r/t residual. 800ml out in ng canister
[2021-02-20 11:07] LABS: Reflex Lactic Add Lactic Reflex
[2021-02-20 12:18] LABS: Lactic Acid Follow Up (RFLX 1) 2.1 mmol/L (0.7-2.1)
--- NOTE | 2021-02-20 12:50 | US_ITS ---
PROCEDURE: US ABDOMEN LIMITED CLINICAL INDICATION: distension COMPARISON: No exams were available for comparison FINDINGS: PANCREAS: Pancreas is not well delineated due to overlying bowel gas. LIVER: No focal liver lesions demonstrated. Homogeneous echogenicity. No intrahepatic biliary ductal dilatation evident. There is appropriate direction of blood flow within a non dilated portal vein RIGHT KIDNEY: Unremarkable. Normal size and echogenicity. No hydronephrosis GALLBLADDER: Gallstones are present. Gallbladder wall is slightly thickened at 4 mm. No pericholecystic fluid. Common bile duct is normal at 2 mm. Incidental note made of small right pleural effusion. IMPRESSION: Cholelithiasis. Dictated by: Gilberto Cortes MD 02/20/2021 14:04 Gilberto Cortes MD in [facility] 02/20/2021 14:04
--- NOTE | 2021-02-20 12:54 | XR_ITS ---
PROCEDURE: XR KUB CLINICAL INDICATION: Distension COMPARISON: CR XR ABDOMEN W OBLIQUE from 02/18/2021 FINDINGS: There has been interval development of diffuse gaseous distension the colon with suspected air in the colon wall diffusely in both ascending, descending colon, and sigmoid colon. Nasogastric tube tip is in the region the stomach. IMPRESSION: Gaseous distention of the colon with diffuse colonic pneumatosis. Causes include intestinal ischemia, obstruction, enteritis/colitis and other less common entities. Consider abdomen CT with contrast for further evaluation. Josette, the patient's nurse in the ICU was notified of this finding by telephone Dictated by: Gilberto Cortes MD 02/20/2021 14:00 Gilberto Cortes MD in [facility] 02/20/2021 14:00
[2021-02-20 13:58] LABS: Reflex Lactic (2 hrs) Add Lactic Reflex
--- NOTE | 2021-02-20 14:14 | PC.NURSE ---
Addendum entered by Josette Cabrera RN 02/20/21 15:27: spoke to pt brother who states to withdrawal care of pt. notified dr hassan office at 1510 and he states that he is agreeable with withdrawal of care. Original Note: notified Dr Becker that pt has had 800 out on NG tube. pt kub results also show that he has air in his colon wall, that could be due to infection or ischemia. per dr becker consult family to see if they want treatment or to withdrawl care
--- NOTE | 2021-02-20 14:42 | DIET.NUTRFU ---
Pt TF stopped at this time per RN. Pt has been made DNR per MD progress note. Pt renal function still declining. Will change formula to match renal function if it is decided to restart TF. Will continue to monitor.
--- NOTE | 2021-02-20 15:47 | PC.NURSE ---
care withdrawn and extubated at 1540.
--- NOTE | 2021-02-20 15:51 | PC.NURSE ---
[address] trevino that pt has
--- NOTE | 2021-02-20 16:17 | [facility].DEATH ---
Pronouncement Note - Date and Time of Date of : 02/20/21 Time of : 16:00 - PCOD Preliminary cause of : Cardiac arrest - Additional Data Confirmation of : no pulse, no respirations, no heart sounds, pupils fixed and dilated Family: not available Additional persons at bedside: other Attending/PCP notified?: Yes Attending physician: Shayne Lora MD Was code activated?: No Autopsy requested?: No passport application examiner notified?: No Organ bank notified?: No Advance directives: No
--- NOTE | 2021-02-20 16:27 | PC.NURSE ---
[id number] brother notified of pt expiration. contacting Edric at [phone]
--- NOTE | 2021-02-20 16:34 | [facility].DCSUM ---
General - General Admission date:: 02/11/21 <Gudelia Pal - 10/29/21 14:25> 02/11/21 <Shayne Lora - 02/20/21 16:34> Discharge date: 02/20/21 <Shayne Lora - 02/20/21 16:34> HPI HPI: this patient with recent dx of covid-19 and was admitted a few weeks ago and has been seen in ed for eval a couple of times since has been having increased issues with resp status and po intake and was seen in the ed - o M presents the emergency department from [facility] secondary to shortness of breath. Patient is known Covid positive. He is satting in the low 80s on 15 L nonrebreather upon presentation via EMS. Patient started on Vapotherm and continued on nonrebreather as he is somewhat of a mouth breather. Patient only complaint is that he is thirsty. He denies any chest pain, nausea/vomit/diarrhea. pt was found to have increased resp failure and was admitted <Shayne Lora - 02/20/21 16:34> Hospital Course Hospital Course: Abnormal Labs 02/11/21 02/11/21 02/11/21 12:43 12:43 13:32 WBC RBC Hgb Hct MCV MCH MCHC Plt Count Neut % (Auto) 89.7 H Lymph % (Auto) 4.0 L [place] % (Auto) Eos % (Auto) Neut # (Auto) 8.3 H Lymph # (Auto) 0.4 L Neutrophils % (Manual) 92 H Lymphocytes % (Manual) 6 L Monocytes % (Manual) D-Dimer ABG pH ABG pCO2 29.0 L ABG pO2 60.7 L ABG HCO3 19.3 L ABG Total CO2 20.1 L ABG O2 Saturation ABG Base Excess -4.9 L ABG Lactate Potassium Chloride 108 H Carbon Dioxide Anion Gap BUN 33 H Creatinine Estimated GFR Est GFR ( Amer) Glucose 194 H POC Glucose Lactate Calcium Ferritin AST 134 H ALT 126 H Alkaline Phosphatase C-Reactive Protein NT-Pro-B Natriuret Pep 375 H Total Protein Albumin 3.3 L Globulin 3.3 H Albumin/Globulin Ratio 1.0 L Vancomycin Trough 02/11/21 02/11/21 02/12/21 21:05 23:05 05:08 WBC RBC 4.31 L Hgb 13.3 L D Hct 39.9 L MCV MCH MCHC Plt Count Neut % (Auto) 86.5 H Lymph % (Auto) 7.5 L [place] % (Auto) Eos % (Auto) Neut # (Auto) Lymph # (Auto) 0.5 L Neutrophils % (Manual) 88 H Lymphocytes % (Manual) 9 L Monocytes % (Manual) D-Dimer ABG pH ABG pCO2 30.5 L ABG pO2 182.7 H ABG HCO3 19.9 L ABG Total CO2 20.8 L ABG O2 Saturation ABG Base Excess -4.4 L ABG Lactate Potassium Chloride Carbon Dioxide Anion Gap BUN Creatinine Estimated GFR Est GFR ( Amer) Glucose POC Glucose Lactate 2.3 H Calcium Ferritin AST ALT Alkaline Phosphatase C-Reactive Protein NT-Pro-B Natriuret Pep Total Protein Albumin Globulin Albumin/Globulin Ratio Vancomycin Trough 02/12/21 02/12/21 02/12/21 05:08 07:51 17:55 WBC RBC Hgb Hct MCV MCH MCHC Plt Count Neut % (Auto) Lymph % (Auto) [place] % (Auto) Eos % (Auto) Neut # (Auto) Lymph # (Auto) Neutrophils % (Manual) Lymphocytes % (Manual) Monocytes % (Manual) D-Dimer 1.49 H ABG pH ABG pCO2 31.6 L ABG pO2 ABG HCO3 21.3 L ABG Total CO2 22.3 L ABG O2 Saturation ABG Base Excess -2.7 L ABG Lactate Potassium Chloride 111 H Carbon Dioxide Anion Gap BUN 26 H Creatinine Estimated GFR Est GFR ( Amer) Glucose 119 H D POC Glucose Lactate Calcium 7.8 L Ferritin AST ALT Alkaline Phosphatase C-Reactive Protein NT-Pro-B Natriuret Pep Total Protein Albumin Globulin Albumin/Globulin Ratio Vancomycin Trough 02/12/21 02/13/21 02/13/21 17:55 06:00 06:20 WBC RBC 3.99 L Hgb 13.0 L Hct 37.7 L MCV 94.6 H MCH 32.6 H MCHC Plt Count Neut % (Auto) Lymph % (Auto) 9.4 L [place] % (Auto) 10.7 H Eos % (Auto)
--- NOTE | 2021-02-20 17:16 | PC.NURSE ---
notified mike home
[2021-02-20 23:03] LABS: POC Glucose,Bedside 183 (70-110)
== END 2021-02-20 18:20 | disposition expired | DRG 207 ==
LOC: ER 16:15 → 2ND 18:09 → ICU 02-12 16:17
PROVIDERS: Internal Medicine Pulmonary Disease; Nurse Practitioner Family; Admitting Provider Emergency Medicine; Emergency Provider Family Medicine; PCP Emergency Medicine; Visit Provider Emergency Medicine
DX: U07.1 COVID-19 (principal); J12.82 Pneumonia due to coronavirus disease 2019; J96.01 Acute respiratory failure with hypoxia; K55.059 Acute (reversible) ischemia of intestine, part and extent unspecified; E87.2 Acidosis; E03.9 Hypothyroidism, unspecified; F20.9 Schizophrenia, unspecified; E66.9 Obesity, unspecified; Z68.37 Body mass index [BMI] 37.0-37.9, adult; J98.2 Interstitial emphysema; Z66 Do not resuscitate; I48.91 Unspecified atrial fibrillation; D64.9 Anemia, unspecified
CPT/HCPCS: 31500; 94002; 36569; 36415; 71045; 71275; 74010; 74018; 76705; 80048; 80053; 80202; 81001; 82728; 82803; 82962; 83605; 83690; 83735; 83880; 84484; 85007; 85025; 85378; 86140; 87040; 87070; 87077; 87081; 87186; 87205; 93005; 93306; 93308; 93970; 94003; 94640; 94761; 96365; 96367; 96375; 99285; C1751; J0456; J0692; J1205; J2704; J3370; Q9967